=== PATIENT | male | born 1930 | race Caucasian/White ===

== ENCOUNTER 2016-11-09 08:00 | Inpatient (IN) ==
[2016-11-09] MEDS ORDERED: DEXTROSE 50% 25 GM/50 ML VIAL IV PRN ×2 (09:37)
[2016-11-09] MEDS ORDERED: GLUCAGON 1 MG VIAL IM PRN ×2 (09:37)
--- NOTE | 2016-11-09 09:37 | Cardiothoracic History & Phys ---
History of Present Illness Chief complaint: Chest pain History of present illness: Mr. Amaral is a 86 year old male who presented to [facility] with symptoms of chest discomfort and rapid heart rate. He was found to be in atrial fibrillation from which he was converted with intravenous Cardizem but was sent admitted to the hospital for further coronary evaluation. There is no previous history of coronary disease although the patient has had a stroke one year ago but has no residual weakness or infirmity as a result. Patient underwent cardiac catheterization demonstrating critical coronary disease and the patient was advised to have bypass surgery. He is to be transferred to this hospital for that reason. Past medical history is significant for history of hypertension and gastroesophageal reflux disease. He also has a history of paroxysmal atrial fibrillation. He has had a previous surgical history of knee operation. Patient is allergic to codeine Lasix and penicillin. He is also allergic to sulfa drugs. Patient has never smoked and does not drink alcohol. Physical examination patient is well-developed well-nourished white male in no acute distress. Examination of head eyes ears nose and throat show the pupils are equal react to light extraocular motions are intact and the oropharynx is benign. Examination of the neck shows no masses and there is no thyromegaly. Examination of the chest is clear to percussion and auscultation. Examination the heart shows regular sinus rhythm and there are no murmurs. Edematous the abdomen shows it is soft and nontender and there are no masses or organomegaly. Examination extremities shows no cyanosis or edema. Neurological examination is grossly within normal limits. Assessment: Coronary artery disease. Plan: Coronary bypass surgery 11/12/2016.
[2016-11-09] MEDS: GABAPENTIN 300 MG CAPSULE PO SCH ×2 (16:23→21:42)
[2016-11-09] MEDS: SODIUM CHLORIDE 0.9% 1,000 ML IV SCH (16:24)
[2016-11-09] MEDS: NAPROXEN 250 MG TABLET PO SCH (21:42)
[2016-11-09] MEDS: METOPROLOL TARTRATE 25 MG TABLET PO SCH (21:42)
[2016-11-09] MEDS: CHLORHEXIDINE 0.12% ORAL RINSE 60 ML BOTTLE SWISH/SPIT SCH (21:42)
[2016-11-09] MEDS: traZODone 50 MG TABLET PO SCH (21:42)
[2016-11-09] MEDS: FAMOTIDINE 20 MG TABLET PO SCH (21:42)
[2016-11-10] MEDS ORDERED: ACETAMINOPHEN 325 MG TABLET PO PRN (03:46)
[2016-11-10 03:52] LABS: ABG Base Excess 1.1 MMOL/L (-2.5-2.5); ABG HCO3 25.3 MMOL/L (20-26); ABG Oxygen Saturation 95.3 % (95-100); ABG PCO2 45.5 MM HG (35-48); ABG PH 7.377 (7.35-7.45); ABG PO2 74.4 MM HG (80-95); ABG TCO2 23.6 MMOL/L (23-27); Allen Test Positive; Pt O2 Delivery Device Room Air
[2016-11-10 05:44] LABS: Basophils % 0.6 % (0.0-0.8); Eosinophils # 0.2 10*3/uL (0.0-0.87); Eosinophils % 4.8 % (0.00-10.9); Hematocrit 35.6 VOL% (42.0-52.0); Hemoglobin 12.6 GM/DL (14.0-18.0); Immature Granulocytes % 0.6 %; Immature Granulocytes Absolute 0.03 #; Lymphocytes # 1.5 10*3/uL (1.4-4.0); Lymphocytes % 29.5 % (21.2-54.2); Mean Corpuscular HGB Conc 35.4 GM/DL (32-36); Mean Corpuscular Hemoglobin 32 PG (27-34); Mean Corpuscular Volume 89.2 FL (87-102); Mean Platelet Volume 11.2 FL (9.6-12.0); Monocytes # 0.6 10*3/uL (0.11-0.8); Neutrophils # 2.7 10*3/uL (1.4-7.4); Neutrophils % 53.5 % (38.7-73.9); Platelet Count 131 T/CUMM (130-400); Red Blood Count 3.99 MC/CUMM (3.8-5.5); Red Cell Distribution Width 12.7 % (9.3-17.3)
[2016-11-10 06:28] LABS: Albumin 3.1 G/DL (3.4-5.0); Bilirubin,Total 0.7 MG/DL (0.2-1.0); Calcium 8.7 MG/DL (8.5-10.1); Osmolality,Calculated 283.1 MOS/KG (273-304); Potassium 3.9 MMOL/L (3.5-5.1); Total Protein 5.6 G/DL (6.4-8.3)
--- NOTE | 2016-11-10 08:14 | EKG Report ---
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
--- NOTE | 2016-11-10 08:16 | XRay Report ---
XR chest 2V Indication: Coronary artery disease. Chest 2 views: Heart size is normal. Mild atheromatous disease the aortic arch noted. Mediastinal contours unremarkable. Aside from some mild interstitial scarring of the central lungs, lungs are clear. Endplate spondylitic changes of thoracic spine noted. Impression: No acute cardiopulmonary disease. Mild atheromatous disease the aorta. PROCEDURE INTERPRETED AT [facility] DEPARTMENT OF RADIOLOGY Final Report Signed by: Martín Young M.D.
--- NOTE | 2016-11-10 09:10 | Cardiothoracic Progress Note ---
Cardiothoracic Subjective Interval history: Patient is ready for surgery on Saturday. Exam (Progress Note) - Constitutional Vitals: Period Temp Pulse Resp BP Sys/Lr Pulse Ox Last 24 Hr 97.7 F-98.5 F 51-74 16-20 119-168/59-80 95-100 Result/EKG - Labs CBC & BMP: 11/10/16 05:34 11/10/16 05:34 Labs: Laboratory Results - last 24 hr 11/10/16 11/10/16 11/10/16 03:45 05:34 05:34 WBC 5.0 RBC 3.99 Hgb 12.6 L Hct 35.6 L MCV 89.2 MCH 32 MCHC 35.4 RDW 12.7 Plt Count 131 MPV 11.2 Neut % (Auto) 53.5 Lymph % (Auto) 29.5 [place] % (Auto) 11.0 Eos % (Auto) 4.8 Baso % (Auto) 0.6 Neut # (Auto) 2.7 Lymph # (Auto) 1.5 [place] # (Auto) 0.6 Eos # (Auto) 0.2 Baso # (Auto) 0.0 Immature Gran % 0.6 Nucleated RBC % 0.0 Immature Gran # 0.03 Nucleated RBCs # 0.00 ABG pH 7.377 ABG pCO2 45.5 ABG pO2 74.4 L ABG HCO3 25.3 ABG Total CO2 23.6 ABG O2 Saturation 95.3 ABG Base Excess 1.1 FiO2 21.00 Sodium 142 Potassium 3.9 Chloride 108 H Carbon Dioxide 28 Anion Gap 9.9 BUN 14 Creatinine 0.90 GFR Calculation 91 BUN/Creatinine Ratio 15.00 Glucose 92 Calculated Osmolality 283.1 Calcium 8.7 Total Bilirubin 0.70 AST 18 ALT 17 Alkaline Phosphatase 62 Total Protein 5.6 L Albumin 3.1 L Globulin 2.5 Albumin/Globulin Ratio 1.2 Quality Measures - VTE Contraindication to Pharmacological VTE Prophylaxis: High Risk of Bleeding
[2016-11-10] MEDS: NAPROXEN 250 MG TABLET PO SCH ×2 (09:27→21:53)
[2016-11-10] MEDS: LOSARTAN 50 MG TABLET PO SCH (09:27)
[2016-11-10] MEDS: GABAPENTIN 300 MG CAPSULE PO SCH ×3 (09:27→21:53)
[2016-11-10] MEDS: LORATADINE 10 MG TABLET PO SCH (09:28)
[2016-11-10] MEDS: ASPIRIN EC 81 MG TABLET PO SCH (09:28)
[2016-11-10] MEDS: amLODIPine 5 MG TABLET PO SCH (09:29)
[2016-11-10] MEDS: METOPROLOL TARTRATE 25 MG TABLET PO SCH ×2 (09:30→21:53)
[2016-11-10] MEDS: SODIUM CHLORIDE 0.9% 1,000 ML IV SCH (09:34)
[2016-11-10] MEDS: CHLORHEXIDINE 0.12% ORAL RINSE 60 ML BOTTLE SWISH/SPIT SCH ×2 (10:08→21:53)
--- NOTE | 2016-11-10 11:48 | Hospitalist Consult Note ---
History of Present Illness - Consult Narrative Reason for consult: Medical management History of present illness: Mr. Amaral is a 86 year old male CC: Kevin Christensen MD - Home Medications and Allergies Home Medications: Home Medications Medication Instructions Recorded Confirmed Type Acetaminophen Tab [Tylenol Tab] 2 tablet PO Q4-6H PRN 11/09/16 11/09/16 History Aspirin [Ecotrin] 1 tablespoon PO DAILY 11/09/16 11/09/16 History Atorvastatin [Lipitor] 1 tablet PO DAILY 11/09/16 11/09/16 History Gabapentin 1 tablet PO TID 11/09/16 11/09/16 History Hydrocodone/Acetaminophen 1 tablet PO Q6HR PRN 11/09/16 11/09/16 History [Hydrocodon-Acetaminoph 7.5-325] Losartan [Cozaar] 100 mg PO BEDTIME 11/09/16 11/09/16 History Metoprolol Tartrate 1 tablet PO BID 11/09/16 11/09/16 History Multivitamin [Multivitamins] 1 tablespoon PO DAILY 11/09/16 11/09/16 History Pantoprazole Tab [Protonix Tab] 1 tablet PO DAILY 11/09/16 11/09/16 History amLODIPine [Norvasc] 5 mg PO DAILY 11/09/16 11/09/16 History traZODone [Desyrel] 2 tablet PO DAILY 11/09/16 11/09/16 History Allergies/Adverse Reactions: Allergies Allergy/AdvReac Type Severity Reaction Status Date / Time codeine Allergy Mild Nausea Verified 11/09/16 14:26 latex Allergy Mild RASH Verified 11/09/16 14:26 Penicillins Allergy Mild RASH Verified 11/09/16 14:25 Sulfa (Sulfonamide Allergy Mild RASH Verified 11/09/16 14:26 Antibiotics) Medical,Surgical,& Family Hx - Medical History Cardio: History of: Cardiac Dysrhythmia, Hypertension, [place] Neurology: History of: Cerebrovascular Accident (LAST YEAR), TIA Genitourinary: History of: Prostate Problems Gastrointestinal: Comment Only: GI Problems (CONSTIPATION) Musculoskeletal: History of: Back/Neck Problems Comment Only: Musculoskeletal Problems (BACK SURGERY) - Surgical History Cardiac Surgeries: Sugical HX of: Cardiac Catheterization Neurologic Surgeries: Patient denies: Neurologic Surgery HEENT Surgeries: Surgical HX of: Eye Surgery, Tonsilectomy & Adenoidectomy Abdominal Surgeries: Surgical HX of: Appendectomy Reproductive Surgeries: Surgical HX of;: Prostate Surgery - Family History Family History: Reports;: Family Cancer, Family Diabetes, Family Heart Disease, Family Hypertension, Family Stroke - Social History Smoking Status: Never smoker Exam - Constitutional Vitals: Period Temp Pulse Resp BP Sys/Lr Pulse Ox Last 24 Hr 97.7 F-98.5 F 51-74 16-20 119-168/59-80 95-100 Results - Labs CBC & BMP: 11/10/16 05:34 11/10/16 05:34 Quality Measures - VTE Contraindication to Pharmacological VTE Prophylaxis: High Risk of Bleeding
[2016-11-10] MEDS ORDERED: ACETAMINOPHEN 500 MG TABLET PO PRN (13:28)
[2016-11-10] MEDS: KETOROLAC 30 MG/1 ML VIAL IV PRN ×2 (13:32→22:00)
[2016-11-10] MEDS ORDERED: MAGNESIUM HYDROXIDE SUSP 30 ML UDCUP PO PRN (15:12)
[2016-11-10] MEDS ORDERED: BISACODYL 5 MG TABLET PO PRN (15:13)
[2016-11-10] MEDS: traZODone 50 MG TABLET PO SCH (21:53)
[2016-11-10] MEDS: FAMOTIDINE 20 MG TABLET PO SCH (21:53)
--- NOTE | 2016-11-11 08:07 | Cardiothoracic Progress Note ---
Cardiothoracic Subjective Interval history: Ready for surgery in the morning. Exam (Progress Note) - Constitutional Vitals: Period Temp Pulse Resp BP Sys/Lr Pulse Ox Last 24 Hr 96.3 F-98.2 F 51-96 16-18 96-157/49-86 96-100 Result/EKG - Labs CBC & BMP: 11/10/16 05:34 11/10/16 05:34 Labs: Laboratory Results - last 24 hr 11/11/16 11/11/16 03:26 08:02 Blood Type O POSITIVE O POSITIVE Antibody Screen Negative Crossmatch See Detail Quality Measures - VTE Contraindication to Pharmacological VTE Prophylaxis: High Risk of Bleeding
[2016-11-11] MEDS: ASPIRIN EC 81 MG TABLET PO SCH (08:29)
[2016-11-11] MEDS: NAPROXEN 250 MG TABLET PO SCH ×2 (08:29→21:04)
[2016-11-11] MEDS: LORATADINE 10 MG TABLET PO SCH (08:29)
[2016-11-11] MEDS: LOSARTAN 50 MG TABLET PO SCH (08:29)
[2016-11-11] MEDS: GABAPENTIN 300 MG CAPSULE PO SCH ×3 (08:29→21:05)
[2016-11-11] MEDS: METOPROLOL TARTRATE 25 MG TABLET PO SCH ×2 (08:29→21:05)
[2016-11-11] MEDS: CHLORHEXIDINE 0.12% ORAL RINSE 60 ML BOTTLE SWISH/SPIT SCH ×2 (08:30→21:05)
[2016-11-11] MEDS: amLODIPine 5 MG TABLET PO SCH (08:30)
[2016-11-11] MEDS ORDERED: CEFUROXIME INJ 1,500 MG in SODIUM CHLORIDE 0.9% 100 ML IV ONE (09:37)
[2016-11-11] MEDS: SODIUM CHLORIDE 0.9% 1,000 ML IV SCH (10:39)
[2016-11-11] MEDS: CHLORHEXIDINE 4% SOLN 118 ML BOTTLE TOP SCH ×3 (14:14→21:05)
[2016-11-11] MEDS: FAMOTIDINE 20 MG TABLET PO SCH (21:05)
[2016-11-11] MEDS: traZODone 50 MG TABLET PO SCH (21:05)
[2016-11-12] MEDS: CHLORHEXIDINE 4% SOLN 118 ML BOTTLE TOP SCH ×2 (04:30→11:49)
[2016-11-12] MEDS ORDERED: PAPAVERINE 60 MG/2 ML VIAL ONE (04:40)
[2016-11-12] MEDS ORDERED: VANCOMYCIN 1,000 MG VIAL ONE (04:41)
[2016-11-12] MEDS ORDERED: PANTOPRAZOLE 40 MG VIAL IV ONE (05:30)
[2016-11-12] MEDS ORDERED: LORazepam 1 MG TABLET PO ONE (05:30)
[2016-11-12] MEDS: SODIUM CHLORIDE 0.9% 1,000 ML IV SCH (05:39)
[2016-11-12] MEDS ORDERED: CEFUROXIME INJ 1,500 MG in SODIUM CHLORIDE 0.9% 100 ML IV ONE (06:00)
[2016-11-12] MEDS ORDERED: AMINOCAPROIC ACID 5,000 MG/20 ML VIAL IV ONE (06:46)
[2016-11-12] MEDS ORDERED: MINERAL OIL/PETROLATUM OPH OINT 3.5 GM TUBE ONE (06:46)
[2016-11-12] MEDS ORDERED: VECURONIUM 10 MG VIAL IV ONE (06:46)
[2016-11-12] MEDS ORDERED: LIDOCAINE 2% 5 ML VIAL ONE (06:46)
[2016-11-12 07:38] LABS: ABG Base Excess 0.2 MMOL/L (-2.5-2.5); ABG HCO3 24.7 MMOL/L (20-26); ABG Oxygen Saturation 99.9 % (95-100); ABG PCO2 43.1 MM HG (35-48); ABG TCO2 22.7 MMOL/L (23-27); Glucose Heart Surgery 112 MG/DL (74-106); Hematocrit Heart Surgery 36.4 PERCENT (42-52); Hemoglobin Heart Surgery 11.8 G/DL (14.0-18.0); Ionized Calcium Arterial 1.21 MMOL/L (1.21-1.46); PCO2 Patient Temp Arterial 43.1 MMHG; Patient Temperature 37 CELCIUS; Potassium Heart/CVR 4.1 MMOL/L (3.5-5.1); Sodium Heart/CVR 138 MMOL/L (135-145)
[2016-11-12 07:53] LABS: Apearance,Urine CLEAR (Clear); Bilirubin,Urine Negative (Negative); Blood, Urine Negative (Negative); Glucose,Urine (UA) Negative (Negative); Ketones,Urine Negative (Negative); Nitrite,Urine Negative (Negative); Protein,Urine Negative; Squamous Epithelial Cell,Urine Occasional /HPF (0-10); Urine Color Colorless (Yellow); Urine Specific Gravity 1.004 (1.001-1.035); Urine Urobilinogen < 2.0 EU/DL (0.2-1.0)
[2016-11-12 09:01] LABS: Hematocrit Heart Surgery 23.1 PERCENT (42-52); Hemoglobin Heart Surgery 7.4 G/DL (14.0-18.0); PCO2 Patient Temp Venous 35.4 MM HG; PH Patient Temp Venous 7.442; PO2 Patient Temp Venous 35.7 MM HG; Potassium Heart/CVR 4.7 MMOL/L (3.5-5.1); VBG Base Excess 0.4 MEQ/L (0-4); VBG HCO3 24.6 MEQ/L (24-28); VBG Oxygen Saturation 82.6 %; VBG PCO2 40.9 MMHG (41-51); VBG PH 7.398
[2016-11-12] MEDS ORDERED: POTASSIUM CHLORIDE RIDER 100 ML IV ONE (09:12)
[2016-11-12 09:43] LABS: Hemoglobin Heart Surgery 9.1 G/DL (14.0-18.0); PCO2 Patient Temp Venous 36.9 MM HG; PH Patient Temp Venous 7.449; PO2 Patient Temp Venous 36.1 MM HG; Potassium Heart/CVR 4.2 MMOL/L (3.5-5.1); VBG HCO3 25.2 MEQ/L (24-28); VBG Oxygen Saturation 81.3 %; VBG PCO2 38.5 MMHG (41-51); VBG PH 7.434; VBG PO2 38.7 MMHG (17-40)
[2016-11-12 10:09] LABS: ABG Base Excess -0.4 MMOL/L (-2.5-2.5); ABG HCO3 23.8 MMOL/L (20-26); ABG PCO2 37.2 MM HG (35-48); ABG PH 7.424 (7.35-7.45); ABG PO2 376.8 MM HG (80-95); ABG TCO2 24.9 MMOL/L (23-27); Glucose Heart Surgery 164 MG/DL (74-106); Ionized Calcium Arterial 1.14 MMOL/L (1.21-1.46); PCO2 Patient Temp Arterial 37.2 MMHG; PH Patient Temp Arterial 7.424; PO2 Patient Temp Arterial 376.8 MM HG; Patient Temperature 37 CELCIUS; Potassium Heart/CVR 3.7 MMOL/L (3.5-5.1); Sodium Heart/CVR 133 MMOL/L (135-145)
[2016-11-12] MEDS ORDERED: PROTAMINE SULFATE 250 MG/25 ML VIAL IV ONE (10:13)
[2016-11-12] MEDS ORDERED: DEXTROSE 5% KCL 20 MEQ 20 MEQ/1,000 ML BAG IV ONE (10:13)
[2016-11-12] MEDS ORDERED: ALBUMIN 25% 25 GM/100 ML VIAL IV ONE (10:13)
[2016-11-12] MEDS ORDERED: SODIUM BICARBONATE 50 MEQ/50 ML SYRINGE IV ONE (10:13)
[2016-11-12] MEDS ORDERED: MAGNESIUM SULFATE 1 GM/2 ML VIAL ONE (10:13)
[2016-11-12] MEDS ORDERED: FUROSEMIDE 20 MG/2 ML VIAL ONE (10:14)
[2016-11-12] MEDS ORDERED: MANNITOL 12.5 GM/50 ML VIAL IV ONE (10:14)
[2016-11-12] MEDS ORDERED: HEPARIN 10,000 UNIT/10 ML VIAL ONE (10:14)
[2016-11-12] MEDS ORDERED: methylPREDNISolone SOD SUC 1,000 MG/8 ML VIAL ONE (10:14)
[2016-11-12] MEDS ORDERED: PROTAMINE SULFATE 50 MG/5 ML VIAL IV ONE ×2 (10:14→11:41)
[2016-11-12] MEDS ORDERED: SEVOFLURANE 1 UNIT/15 MINUTE INH ONE (11:20)
[2016-11-12] MEDS ORDERED: SUFentanil 250 MCG/5 ML AMP ONE (11:20)
[2016-11-12] MEDS ORDERED: LACTATED RINGERS 1,000 ML IV ONE (11:21)
[2016-11-12] MEDS ORDERED: SODIUM CHLORIDE 0.9% 1,000 ML IV ONE (11:21)
[2016-11-12] MEDS ORDERED: SODIUM CHLORIDE 0.9% 250 ML IV ONE (11:21)
[2016-11-12] MEDS ORDERED: MIDAZOLAM 10 MG/2 ML VIAL ONE (11:21)
[2016-11-12] MEDS ORDERED: ePHEDrine 50 MG/ML AMP ONE (11:26)
[2016-11-12] MEDS: LACTATED RINGERS 1,000 ML IV PRN ×6 (11:30→15:31)
[2016-11-12] MEDS ORDERED: MIDAZOLAM 2 MG/2 ML VIAL IV PRN (11:32)
[2016-11-12] MEDS ORDERED: INSULIN REGULAR 100 UNIT/ML IV ONE (11:32)
[2016-11-12] MEDS ORDERED: MAGNESIUM SULF RIDER 2 GM in PREMIX 1 EACH IV PRN (11:32)
[2016-11-12] MEDS ORDERED: LACTATED RINGERS 250 ML IV PRN (11:32)
[2016-11-12] MEDS ORDERED: MAGNESIUM SULF RIDER 4 GM in PREMIX 1 EACH IV PRN (11:32)
[2016-11-12] MEDS ORDERED: DEXTROSE 50% 25 GM/50 ML VIAL IV PRN ×2 (11:32)
[2016-11-12] MEDS ORDERED: MIDAZOLAM 10 MG/2 ML VIAL IV PRN (11:32)
[2016-11-12] MEDS ORDERED: NITROPRUSSIDE 100 MG in DEXTROSE 5% 250 ML IV PRN (11:32)
[2016-11-12] MEDS ORDERED: VECURONIUM 10 MG VIAL IV PRN ×2 (11:32)
[2016-11-12] MEDS ORDERED: PHENYLEPHRINE DRIP 40 MG/250 ML PREMIX IV PRN (11:32)
[2016-11-12] MEDS ORDERED: CALCIUM CHLORIDE 1,000 MG/10 ML SYRINGE IV PRN (11:32)
[2016-11-12] MEDS ORDERED: ACETAMINOPHEN 650 MG SUPP RECTAL PRN (11:32)
[2016-11-12] MEDS ORDERED: MORPHINE 10 MG/1 ML VIAL IV PRN (11:32)
[2016-11-12 11:47] LABS: ABG Base Excess -1.3 MMOL/L (-2.5-2.5); ABG HCO3 23.3 MMOL/L (20-26); ABG PH 7.394 (7.35-7.45); ABG TCO2 21.3 MMOL/L (23-27); Glucose Heart Surgery 126 MG/DL (74-106); Hematocrit Heart Surgery 29.5 PERCENT (42-52); Hemoglobin Heart Surgery 9.5 G/DL (14.0-18.0); Potassium Heart/CVR 3.7 MMOL/L (3.5-5.1)
[2016-11-12 11:50] LABS: Basophils % 0.2 % (0.0-0.8); Eosinophils # 0.1 10*3/uL (0.0-0.87); Eosinophils % 0.7 % (0.00-10.9); Hematocrit 28.2 VOL% (42.0-52.0); Hemoglobin 9.9 GM/DL (14.0-18.0); Immature Granulocytes % 0.9 %; Immature Granulocytes Absolute 0.08 #; Lymphocytes # 0.8 10*3/uL (1.4-4.0); Lymphocytes % 9.2 % (21.2-54.2); Mean Corpuscular HGB Conc 35.1 GM/DL (32-36); Mean Corpuscular Hemoglobin 32 PG (27-34); Mean Platelet Volume 11.4 FL (9.6-12.0); Monocytes # 0.6 10*3/uL (0.11-0.8); Neutrophils # 7.6 10*3/uL (1.4-7.4); Platelet Count 119 T/CUMM (130-400); White Blood Count 9.1 T/CUMM (4-12)
[2016-11-12] MEDS: SODIUM CHLORIDE 0.45% 1,000 ML IV SCH ×2 (11:50→11:51)
[2016-11-12 12:01] LABS: INR 1.2; PT Patient Result 12.7 SECS; Partial Thromboplastin Time 30.8 SECS (0-40)
[2016-11-12] MEDS: KETOROLAC 30 MG/1 ML VIAL IV SCH ×3 (12:03→22:39)
[2016-11-12] MEDS: POTASSIUM CHLORIDE RIDER 20 MEQ in PREMIX 1 EACH IV PRN ×5 (12:11→23:05)
[2016-11-12 12:28] LABS: Albumin 2.7 G/DL (3.4-5.0); Bilirubin,Total 1.1 MG/DL (0.2-1.0); Calcium 9.4 MG/DL (8.5-10.1); Osmolality,Calculated 284.3 MOS/KG (273-304); Potassium 3.9 MMOL/L (3.5-5.1); Total Protein 4.6 G/DL (6.4-8.3)
[2016-11-12 12:40] LABS: CKMB % 3.1 %
[2016-11-12 12:41] LABS: Hypochromasia Slight; Microcytosis 1+
--- NOTE | 2016-11-12 12:41 | XRay Report ---
XR chest 1V portable Indication: Line placement Comparison: Chest x-ray dated November 10, 2016 Technique: Single frontal view of the chest. Findings: Right-sided internal jugular approach central venous catheter tip projects over the distal SVC. Endotracheal tube tip projects just below the level of the clavicles. Mediastinal drains noted. Enteric tube tip projects over proximal stomach. Heart size is grossly stable status post sternotomy. Mild bibasilar atelectasis. Osseous structures appear grossly unchanged. IMPRESSION: Poststernotomy change with lines and tubes as above. PROCEDURE INTERPRETED AT [facility] DEPARTMENT OF RADIOLOGY Final Report Signed by: Dr Harry Min
[2016-11-12 12:42] LABS: Troponin I Only 1.73 NG/ML (0.00-0.045)
--- NOTE | 2016-11-12 13:07 | Operative Note ---
Date of procedure: 11/12/16 Pre-op diagnosis: Coronary artery disease Post-op diagnosis: same Procedure: Procedure: Coronary bypass grafting 2 with a left internal mammary graft to the anterior descending coronary artery and a saphenous vein graft to the right coronary artery. Findings: Patient is an 86-year-old man who was admitted to [facility] recent onset of substernal chest pain. Cardiac catheterization demonstrated critical stenosis in the anterior descending coronary artery and the right coronary artery. Patient was referred for bypass surgery and sinus surgery left ventricular function was noted to be normal. The left internal mammary artery was grafted to the anterior descending coronary artery which was a large vessel and free of disease at the site of anastomosis right coronary artery had to be grafted fairly distally and I did not think that we could easily reach this with a right internal mammary artery and therefore saphenous vein graft was used from the right lower leg. Patient tolerated the procedure well and was returned to recovery in satisfactory condition. Procedure: Patient brought the operating room placed on the operating table in supine position. After satisfactory induction of general anesthesia the chest abdomen and legs were prepped and draped in sterile fashion. Greater saphenous vein was harvested from the right lower leg and prepared as an arterial graft. Incision in the leg was closed with 3 oh sub-cutaneous Monocryl and 3-0 subcuticular Monocryl. A standard sternotomy incision was made and the sternum was divided and the heart suspended in a pericardial cradle. Left internal mammary artery was dissected free from its position in the anterior chest wall and prepared as an arterial graft. Patient was prepared for cardiopulmonary bypass with systemic heparinization and cannulation of the ascending aorta and right atrium. Cardiopulmonary bypass was begun and aorta was crossclamped and the heart arrested with cardioplegia solution injected into the aortic root. Heart was protected during the period of crossclamping with topical saline slush. Distal anastomoses were constructed as noted above and then the aorta was unclamped reestablishing cardiac action. Proximal anastomosis was constructed between the influenza saphenous vein graft in the ascending aorta. Following this the patient was weaned from cardiopulmonary bypass without difficulty and heparin effect reversed with protamine and decannulation carried out with a defects in the ascending aorta and right atrium closed with 3-0 Prolene. Operative field was inspected for hemostasis and when this was considered adequate incision was closed with interrupted stainless steel wire and the sternum and 0 Monopril in the presternal fascia. Skin was closed with running 3-0 subcuticular Monocryl. 2 chest tubes were left in the anterior mediastinum and brought out through separate stab incisions. Sterile dressings were applied and the patient was returned to recovery in satisfactory condition. Anesthesia: NATACHA Surgeon / Physician: Kevin Christensen Estimated blood loss: other (Unable to determine because of cardiopulmonary bypass) Condition: stable Disposition: ICU Results - Labs CBC & BMP: 11/12/16 11:45 11/12/16 11:43 Discharge Plan - Discharge Medications No Action Aspirin [Ecotrin] 1 tablespoon PO DAILY Gabapentin 1 tablet PO TID Atorvastatin [Lipitor] 1 tablet PO DAILY Metoprolol Tartrate 1 tablet PO BID traZODone [Desyrel] 2 tablet PO DAILY Pantoprazole Tab [Protonix Tab] 1 tablet PO DAILY amLODIPine [Norvasc] 5 mg PO DAILY Losartan [Cozaar] 100 mg PO BEDTIME Hydrocodone/Acetaminophen [Hydrocodon-Acetaminoph 7.5-325] 1 tablet PO Q6HR PRN PRN Reason: Pain Acetaminophen Tab [Tylenol Tab] 2 tablet PO Q4-6H PRN PRN Reason: Pain Multivitamin [Multivitamins] 1 tablespoon PO DAILY - Follow Up or Referral - Forms/Instructions
[2016-11-12] MEDS: ALBUMIN 5% 12.5 GM in PREMIX 1 EACH IV PRN ×5 (13:14→18:48)
[2016-11-12] MEDS: INSULIN REGULAR DRIP 100 ML IV SCH ×2 (13:22→16:20)
[2016-11-12 15:21] LABS: ABG Base Excess -2.1 MMOL/L (-2.5-2.5); ABG HCO3 22.7 MMOL/L (20-26); ABG TCO2 20.5 MMOL/L (23-27); Glucose Heart Surgery 163 MG/DL (74-106); Potassium Heart/CVR 3.9 MMOL/L (3.5-5.1)
[2016-11-12 15:22] LABS: Hematocrit Heart Surgery 28.9 PERCENT (42-52); Hemoglobin Heart Surgery 9.3 G/DL (14.0-18.0)
[2016-11-12] MEDS: POTASSIUM CHLORIDE RIDER 10 MEQ in PREMIX 1 EACH IV PRN (17:12)
[2016-11-12] MEDS: MORPHINE 2 MG/1 ML SYRINGE IV PRN ×2 (17:17→18:46)
[2016-11-12] MEDS: CEFUROXIME INJ 1,500 MG in SODIUM CHLORIDE 0.9% 100 ML IV SCH (18:47)
[2016-11-12] MEDS: INSULIN REGULAR 100 UNIT/ML IV PRN ×2 (18:49→20:11)
[2016-11-12] MEDS: CHLORHEXIDINE 0.12% ORAL RINSE 60 ML BOTTLE SWISH/SPIT SCH (20:38)
[2016-11-12 20:49] LABS: ABG Base Excess -3.4 MMOL/L (-2.5-2.5); ABG HCO3 21.6 MMOL/L (20-26); ABG Oxygen Saturation 99.9 % (95-100); ABG PCO2 36.1 MM HG (35-48); ABG PH 7.378 (7.35-7.45); ABG TCO2 19.4 MMOL/L (23-27); Glucose Heart Surgery 140 MG/DL (74-106); Hematocrit Heart Surgery 30.4 PERCENT (42-52); Hemoglobin Heart Surgery 9.8 G/DL (14.0-18.0); Potassium Heart/CVR 4.3 MMOL/L (3.5-5.1)
[2016-11-12 21:10] LABS: CKMB % 5.5 %
[2016-11-12 21:18] LABS: Troponin I Only 4.59 NG/ML (0.00-0.045)
[2016-11-12 21:53] LABS: ABG Base Excess -3.8 MMOL/L (-2.5-2.5); ABG HCO3 21.3 MMOL/L (20-26); ABG Oxygen Saturation 99.2 % (95-100); ABG PCO2 37.7 MM HG (35-48); ABG PH 7.359 (7.35-7.45); ABG TCO2 19.5 MMOL/L (23-27); Glucose Heart Surgery 132 MG/DL (74-106); Hematocrit Heart Surgery 29.7 PERCENT (42-52); Hemoglobin Heart Surgery 9.6 G/DL (14.0-18.0); Potassium Heart/CVR 4.2 MMOL/L (3.5-5.1)
[2016-11-12 22:55] LABS: ABG Base Excess -4.3 MMOL/L (-2.5-2.5); ABG Oxygen Saturation 98.6 % (95-100); ABG PH 7.388 (7.35-7.45); ABG PO2 198.6 MM HG (80-95); ABG TCO2 21.1 MMOL/L (23-27); Glucose Heart Surgery 111 MG/DL (74-106); Hemoglobin Heart Surgery 10.6 G/DL (14.0-18.0); Potassium Heart/CVR 4.1 MMOL/L (3.5-5.1)
[2016-11-13] MEDS ORDERED: AMIODARONE INJ 50 MG in DEXTROSE 5% 100 ML IV ONE (00:51)
[2016-11-13] MEDS ORDERED: AMIODARONE 150 MG/3 ML VIAL ONE (00:55)
[2016-11-13] MEDS ORDERED: AMIODARONE 450 MG/9 ML VIAL IV ONE (00:58)
[2016-11-13] MEDS ORDERED: AMIODARONE INJ 450 MG in DEXTROSE 5% 241 ML IV SCH ×2 (01:00→07:00)
[2016-11-13] MEDS: MORPHINE 2 MG/1 ML SYRINGE IV PRN ×3 (01:24→22:44)
[2016-11-13] MEDS: SODIUM CHLORIDE 0.9% 1,000 ML IV SCH (01:43)
[2016-11-13] MEDS: CHLORHEXIDINE 0.12% ORAL RINSE 60 ML BOTTLE SWISH/SPIT SCH ×3 (01:43→22:46)
[2016-11-13] MEDS: LOSARTAN 50 MG TABLET PO SCH ×2 (01:44→20:25)
[2016-11-13] MEDS: LORATADINE 10 MG TABLET PO SCH (01:44)
[2016-11-13] MEDS: ASPIRIN EC 81 MG TABLET PO SCH ×2 (01:44→09:03)
[2016-11-13] MEDS: GABAPENTIN 300 MG CAPSULE PO SCH ×4 (01:44→20:26)
[2016-11-13] MEDS: METOPROLOL TARTRATE 25 MG TABLET PO SCH (01:44)
[2016-11-13] MEDS: NAPROXEN 250 MG TABLET PO SCH (01:44)
[2016-11-13] MEDS: amLODIPine 5 MG TABLET PO SCH ×2 (01:44→09:03)
[2016-11-13 03:04] LABS: ABG Base Excess -3.2 MMOL/L (-2.5-2.5); ABG HCO3 20.7 MMOL/L (20-26); ABG Oxygen Saturation 98.2 % (95-100); ABG PCO2 33.1 MM HG (35-48); ABG PH 7.414 (7.35-7.45); ABG PO2 141.9 MM HG (80-95); ABG TCO2 21.7 MMOL/L (23-27); Glucose Heart Surgery 108 MG/DL (74-106); Hemoglobin Heart Surgery 10.5 G/DL (14.0-18.0); Potassium Heart/CVR 4.5 MMOL/L (3.5-5.1)
[2016-11-13 03:10] LABS: Basophils % 0.1 % (0.0-0.8); Hematocrit 28.4 VOL% (42.0-52.0); Hemoglobin 9.8 GM/DL (14.0-18.0); Immature Granulocytes % 0.6 %; Immature Granulocytes Absolute 0.08 #; Lymphocytes # 0.7 10*3/uL (1.4-4.0); Lymphocytes % 4.7 % (21.2-54.2); Mean Corpuscular HGB Conc 34.5 GM/DL (32-36); Mean Corpuscular Hemoglobin 31 PG (27-34); Mean Corpuscular Volume 90.4 FL (87-102); Mean Platelet Volume 11.6 FL (9.6-12.0); Monocytes # 0.7 10*3/uL (0.11-0.8); Monocytes % 5.1 % (1.7-12.7); Neutrophils # 12.7 10*3/uL (1.4-7.4); Neutrophils % 89.5 % (38.7-73.9); Platelet Count 105 T/CUMM (130-400); Red Blood Count 3.14 MC/CUMM (3.8-5.5); Red Cell Distribution Width 13.8 % (9.3-17.3); White Blood Count 14.2 T/CUMM (4-12)
[2016-11-13 03:40] LABS: Albumin 3.4 G/DL (3.4-5.0); Bilirubin,Direct 0.3 MG/DL (0.0-0.20); Bilirubin,Total 1.1 MG/DL (0.2-1.0); Osmolality,Calculated 280.5 MOS/KG (273-304); Potassium 4.5 MMOL/L (3.5-5.1); Total Protein 5.4 G/DL (6.4-8.3)
[2016-11-13 03:55] LABS: Lymphocytes 5 % (20-55); Segmented Neutrophils 90 % (50-85); Total Cells Counted 100; Troponin I Only 7.82 NG/ML (0.00-0.045)
[2016-11-13 03:56] LABS: Ovalocytes Slight; Platelet Estimate Adequate
[2016-11-13] MEDS: KETOROLAC 30 MG/1 ML VIAL IV SCH ×3 (05:23→18:24)
[2016-11-13] MEDS: POTASSIUM CHLORIDE RIDER 10 MEQ in PREMIX 1 EACH IV PRN (05:24)
[2016-11-13] MEDS: CEFUROXIME INJ 1,500 MG in SODIUM CHLORIDE 0.9% 100 ML IV SCH ×2 (06:31→20:25)
--- NOTE | 2016-11-13 07:38 | EKG Report ---
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
[2016-11-13] MEDS ORDERED: ACETAMINOPHEN 500 MG TABLET PO PRN (07:44)
--- NOTE | 2016-11-13 07:44 | Cardiothoracic Progress Note ---
Cardiothoracic Subjective Interval history: Patient is awake alert and extubated. He had a comfortable night and was extubated around midnight. Vital signs have been stable and is breathing comfortably. He is in sinus rhythm with occasional PVCs. He has been placed on amiodarone prophylactically for this problem. Otherwise his vital signs have been stable. He is breathing comfortably and his arterial blood gases are satisfactory postextubation. Chest tube drainage is minimal and his chest tubes have been removed. Urine output is good and creatinine is within normal limits. Because of the patient's age I think it prudent to keep him in intensive care for another 24 hours. Overall however his progress is satisfactory. Exam (Progress Note) - Constitutional Vitals: Period Temp Pulse Resp BP Sys/Lr Pulse Ox Last 24 Hr 96.1 F-98.8 F 7-106 8-17 81-150/43-65 98-100 Result/EKG - Labs CBC & BMP: 11/13/16 03:00 11/13/16 03:00 Labs: Laboratory Results - last 24 hr 11/11/16 11/12/16 11/12/16 03:26 07:35 07:48 WBC RBC Hgb Hct MCV MCH MCHC RDW Plt Count 43 L D MPV Neut % (Auto) Lymph % (Auto) [place] % (Auto) Eos % (Auto) Baso % (Auto) Neut # (Auto) Lymph # (Auto) [place] # (Auto) Eos # (Auto) Baso # (Auto) Total Counted Immature Gran % Nucleated RBC % Immature Gran # Segmented Neutrophils Lymphocytes Monocytes Nucleated RBCs # Platelet Estimate Hypochromasia Microcytosis Ovalocytes INR PT Patient/Control Mix Circ Anticoag PTT Patient Temperature ABG pH ABG pH at Pt Temp ABG pCO2 ABG pCO2 at Pt Temp ABG pO2 ABG pO2 at Pt Temp ABG HCO3 ABG Total CO2 ABG O2 Saturation ABG Base Excess ABG Sodium VBG pH VBG pCO2 VBG pO2 VBG HCO3 VBG Total CO2 VBG O2 Saturation VBG Base Excess Hemoglobin Hematocrit Potassium Glucose Ionized Calcium FiO2 Sodium Chloride Carbon Dioxide Anion Gap BUN Creatinine GFR Calculation BUN/Creatinine Ratio POC Glucose Calculated Osmolality Calcium Venous Ioniz Calcium Magnesium Total Bilirubin Direct Bilirubin AST ALT Alkaline Phosphatase Total Creatine Kinase CK-MB (CK-2) CK and CKMB Interp Troponin I Total Protein Albumin Globulin Albumin/Globulin Ratio Urine Color Colorless Urine Appearance Clear Urine pH 7.0 Ur Specific [place] 1.004 Urine Protein Negative Urine Glucose (UA) Negative Urine Ketones Negative Urine Blood Negative Urine Nitrate Negative Urine Bilirubin Negative Urine Urobilinogen < 2.0 H Urine Leukocytes Negative Ur Squamous Epith Cells Occasional Ur Culture Indicated? Not indicated Blood Type O POSITIVE Antibody Screen Negative Crossmatch See Detail 11/12/16 11/12/16 11/12/16 08:59 09:44 10:04 WBC RBC Hgb Hct MCV MCH MCHC RDW Plt Count 59 L D MPV Neut % (Auto) Lymph % (Auto) [place] % (Auto) Eos % (Auto) Baso % (Auto) Neut # (Auto) Lymph # (Auto) [place] # (Auto) Eos # (Auto) Baso # (Auto) Total Counted Immature Gran % Nucleated RBC % Immature Gran # Segmented Neutrophils Lymphocytes Monocytes Nucleated RBCs # Platelet Estimate Hypochromasia Microcytosis Ovalocytes INR PT Patient/Control Mix Circ Anticoag PTT Patient Temperature 34 36 ABG pH ABG pH at Pt Temp 7.442 7.449 ABG pCO2 ABG pCO2 at Pt Temp 35.4 36.9 ABG pO2 ABG pO2 at Pt Temp 35.7 36.1 ABG HCO3 ABG Total CO2 ABG O2 Saturation ABG Base Excess ABG Sodium 129 L 131 L VBG pH 7.398 7.434 VBG pCO2 40.9 L 38.5 L VBG pO2 44.0 H 38.7 VBG HCO3 24.6 25.2 VBG Total CO2 23.8 26.4 VBG O2 Saturation 82.6 81.3 VBG Base Excess 0.4 1.0 Hemoglobin 7.4 L D 9.1 L Hematocrit 23.1 L 27.0 L Potassium 4.7 4.2 Glucose 327 H 208 H Ionized Calcium FiO2 80.00 80.00 Sodium Chloride Carbon Dioxide Anion Gap BUN Creatinine GFR Calculation BUN/Creatinine Ratio POC Glucose Calculated Osmolality Calcium Venous Ioniz Calcium 0.94 L 1.02 Magnesium Total Bilirubin Direct Bilirubin AST ALT Alkaline Phosphatase Total Creatine Kinase CK-MB (CK-2) CK and CKMB Interp Troponin I Total Protein Albumin Globulin Albumin/Globulin Ratio Urine Color Urine Appearance Urine pH Ur Specific [place] Urine Protein Urine Glucose (UA) Urine Ketones Urine Blood Urine Nitrate Urine Bilirubin Urine Urobilinogen Urine Leukocytes Ur Squamous Epith Cells Ur Culture Indicated? Blood Type Antibody Screen Crossmatch 11/12/16 11/12/16 11/12/16 10:04 11:43 11:43 WBC RBC Hgb Hct MCV MCH MCHC RDW Plt Count MPV Neut % (Auto) Lymph % (Auto) [place] % (Auto) Eos % (Auto) Baso % (Auto) Neut # (Auto) Lymph # (Auto) [place] # (Auto) Eos # (Auto) Baso # (Auto) Total Counted Immature Gran % Nucleated RBC % Immature Gran # Segmented Neutrophils Lymphocytes Monocytes Nucleated RBCs # Platelet Estimate Hypochromasia Microcytosis Ovalocytes INR PT Patient/Control Mix Circ Anticoag PTT Patient Temperature 37 ABG pH 7.424 7.394 ABG pH at Pt Temp 7.424 ABG pCO2 37.2 38.0 ABG pCO2 at Pt Temp 37.2 ABG pO2 376.8 H 348.0 H ABG pO2 at Pt Temp 376.8 ABG HCO3 23.8 23.3 ABG Total CO2 24.9 21.3 L ABG O2 Saturation 99.0 100.0 ABG Base Excess -0.4 -1.3 ABG Sodium 133 L VBG pH VBG pCO2 VBG pO2 VBG HCO3 VBG Total CO2 VBG O2 Saturation VBG Base Excess Hemoglobin 10.0 L 9.5 L D Hematocrit 29.0 L 29.5 L Potassium 3.7 3.9 3.7 Glucose 164 H 116 H 126 H Ionized Calcium 1.14 L FiO2 Sodium 141 Chloride 109 H Carbon Dioxide 24 Anion Gap 11.9 BUN 21 H Creatinine 1.00 GFR Calculation 80 BUN/Creatinine Ratio 21.00 H POC Glucose Calculated Osmolality 284.3 Calcium 9.4 Venous Ioniz Calcium Magnesium 2.0 Total Bilirubin 1.10 H Direct Bilirubin AST 26 ALT 22 Alkaline Phosphatase 42 L Total Creatine Kinase CK-MB (CK-2) CK and CKMB Interp Troponin I Total Protein 4.6 L Albumin 2.7 L Globulin 1.9 L Albumin/Globulin Ratio 1.4 Urine Color Urine Appearance Urine pH Ur Specific [place] Urine Protein Urine Glucose (UA) Urine Ketones Urine Blood Urine Nitrate Urine Bilirubin Urine Urobilinogen Urine Leukocytes Ur Squamous Epith Cells Ur Culture Indicated? Blood Type Antibody Screen Crossmatch 11/12/16 11/12/16 11/12/16 11:43 11:45 11:45 WBC 9.1 D RBC 3.10 L D Hgb 9.9 L D Hct 28.2 L MCV 91.0 MCH 32 MCHC 35.1 RDW 13.0 Plt Count 119 L D MPV 11.4 Neut % (Auto) 83.0 H Lymph % (Auto) 9.2 L [place] % (Auto) 6.0 Eos % (Auto) 0.7 Baso % (Auto) 0.2 Neut # (Auto) 7.6 H Lymph # (Auto) 0.8 L [place] # (Auto) 0.6 Eos # (Auto) 0.1 Baso # (Auto) 0.0 Total Counted Immature Gran % 0.9 Nucleated RBC % 0.0 Immature Gran # 0.08 Segmented Neutrophils Lymphocytes Monocytes Nucleated RBCs # 0.00 Platelet Estimate Hypochromasia Slight Microcytosis 1+ Ovalocytes INR 1.2 PT Patient/Control Mix 12.7 Circ Anticoag PTT 30.8 Patient Temperature ABG pH ABG pH at Pt Temp ABG pCO2 ABG pCO2 at Pt Temp ABG pO2 ABG pO2 at Pt Temp ABG HCO3 ABG Total CO2 ABG O2 Saturation ABG Base Excess ABG Sodium VBG pH VBG pCO2 VBG pO2 VBG HCO3 VBG Total CO2 VBG O2 Saturation VBG Base Excess Hemoglobin Hematocrit Potassium Glucose Ionized Calcium FiO2 Sodium Chloride Carbon Dioxide Anion Gap BUN Creatinine GFR Calculation BUN/Creatinine Ratio POC Glucose Calculated Osmolality Calcium Venous Ioniz Calcium Magnesium Total Bilirubin Direct Bilirubin AST ALT Alkaline Phosphatase Total Creatine Kinase 292 CK-MB (CK-2) 9.1 H CK and CKMB Interp 3.1 Troponin I 1.730 H Total Protein Albumin Globulin Albumin/Globulin Ratio Urine Color Urine Appearance Urine pH Ur Specific [place] Urine Protein Urine Glucose (UA) Urine Ketones Urine Blood Urine Nitrate Urine Bilirubin Urine Urobilinogen Urine Leukocytes Ur Squamous Epith Cells Ur Culture Indicated? Blood Type Antibody Screen Crossmatch 11/12/16 11/12/16 11/12/16 15:20 16:21 17:18 WBC RBC Hgb Hct MCV MCH MCHC RDW Plt Count MPV Neut % (Auto) Lymph % (Auto) [place] % (Auto) Eos % (Auto) Baso % (Auto) Neut # (Auto) Lymph # (Auto) [place] # (Auto) Eos # (Auto) Baso # (Auto) Total Counted Immature Gran % Nucleated RBC % Immature Gran # Segmented Neutrophils Lymphocytes Monocytes Nucleated RBCs # Platelet Estimate Hypochromasia Microcytosis Ovalocytes INR PT Patient/Control Mix Circ Anticoag PTT Patient Temperature ABG pH 7.400 ABG pH at Pt Temp ABG pCO2 36.0 ABG pCO2 at Pt Temp ABG pO2 229.0 H ABG pO2 at Pt Temp ABG HCO3 22.7 ABG Total CO2 20.5 L ABG O2 Saturation 100.0 ABG Base Excess -2.1 ABG Sodium VBG pH VBG pCO2 VBG pO2 VBG HCO3 VBG Total CO2 VBG O2 Saturation VBG Base Excess Hemoglobin 9.3 L Hematocrit 28.9 L Potassium 3.9 Glucose 163 H Ionized Calcium FiO2 Sodium Chloride Carbon Dioxide Anion Gap BUN Creatinine GFR Calculation BUN/Creatinine Ratio POC Glucose 176 H 207 H Calculated Osmolality Calcium Venous Ioniz Calcium Magnesium Total Bilirubin Direct Bilirubin AST ALT Alkaline Phosphatase Total Creatine Kinase CK-MB (CK-2) CK and CKMB Interp Troponin I Total Protein Albumin Globulin Albumin/Globulin Ratio Urine Color Urine Appearance Urine pH Ur Specific [place] Urine Protein Urine Glucose (UA) Urine Ketones Urine Blood Urine Nitrate Urine Bilirubin Urine Urobilinogen Urine Leukocytes Ur Squamous Epith Cells Ur Culture Indicated? Blood Type Antibody Screen Crossmatch 11/12/16 11/12/16 11/12/16 18:42 19:28 20:06 WBC RBC Hgb Hct MCV MCH MCHC RDW Plt Count MPV Neut % (Auto) Lymph % (Auto) [place] % (Auto) Eos % (Auto) Baso % (Auto) Neut # (Auto) Lymph # (Auto) [place] # (Auto) Eos # (Auto) Baso # (Auto) Total Counted Immature Gran % Nucleated RBC % Immature Gran # Segmented Neutrophils Lymphocytes Monocytes Nucleated RBCs # Platelet Estimate Hypochromasia Microcytosis Ovalocytes INR PT Patient/Control Mix Circ Anticoag PTT Patient Temperature ABG pH ABG pH at Pt Temp ABG pCO2 ABG pCO2 at Pt Temp ABG pO2 ABG pO2 at Pt Temp ABG HCO3 ABG Total CO2 ABG O2 Saturation ABG Base Excess ABG Sodium VBG pH VBG pCO2 VBG pO2 VBG HCO3 VBG Total CO2 VBG O2 Saturation VBG Base Excess Hemoglobin Hematocrit Potassium Glucose Ionized Calcium FiO2 Sodium Chloride Carbon Dioxide Anion Gap BUN Creatinine GFR Calculation BUN/Creatinine Ratio POC Glucose 192 H 144 H 159 H Calculated Osmolality Calcium Venous Ioniz Calcium Magnesium Total Bilirubin Direct Bilirubin AST ALT Alkaline Phosphatase Total Creatine Kinase CK-MB (CK-2) CK and CKMB Interp Troponin I Total Protein Albumin Globulin Albumin/Globulin Ratio Urine Color Urine Appearance Urine pH Ur Specific [place] Urine Protein Urine Glucose (UA) Urine Ketones Urine Blood Urine Nitrate Urine Bilirubin Urine Urobilinogen Urine Leukocytes Ur Squamous Epith Cells Ur Culture Indicated? Blood Type Antibody Screen Crossmatch 11/12/16 11/12/16 11/12/16 20:45 20:45 20:59 WBC RBC Hgb Hct MCV MCH MCHC RDW Plt Count MPV Neut % (Auto) Lymph % (Auto) [place] % (Auto) Eos % (Auto) Baso % (Auto) Neut # (Auto) Lymph # (Auto) [place] # (Auto) Eos # (Auto) Baso # (Auto) Total Counted Immature Gran % Nucleated RBC % Immature Gran # Segmented Neutrophils Lymphocytes Monocytes Nucleated RBCs # Platelet Estimate Hypochromasia Microcytosis Ovalocytes INR PT Patient/Control Mix Circ Anticoag PTT Patient Temperature ABG pH 7.378 ABG pH at Pt Temp ABG pCO2 36.1 ABG pCO2 at Pt Temp ABG pO2 164.0 H ABG pO2 at Pt Temp ABG HCO3 21.6 ABG Total CO2 19.4 L ABG O2 Saturation 99.9 ABG Base Excess -3.4 L ABG Sodium VBG pH VBG pCO2 VBG pO2 VBG HCO3 VBG Total CO2 VBG O2 Saturation VBG Base Excess Hemoglobin 9.8 L Hematocrit 30.4 L Potassium 4.3 Glucose 140 H Ionized Calcium FiO2 Sodium Chloride Carbon Dioxide Anion Gap BUN Creatinine GFR Calculation BUN/Creatinine Ratio POC Glucose 140 H Calculated Osmolality Calcium Venous Ioniz Calcium Magnesium Total Bilirubin Direct Bilirubin AST ALT Alkaline Phosphatase Total Creatine Kinase 427 H D CK-MB (CK-2) 23.3 H D CK and CKMB Interp 5.5 Troponin I 4.590 H D Total Protein Albumin Globulin Albumin/Globulin Ratio Urine Color Urine Appearance Urine pH Ur Specific [place] Urine Protein Urine Glucose (UA) Urine Ketones Urine Blood Urine Nitrate Urine Bilirubin Urine Urobilinogen Urine Leukocytes Ur Squamous Epith Cells Ur Culture Indicated? Blood Type Antibody Screen Crossmatch 11/12/16 11/12/16 11/12/16 21:45 22:03 22:50 WBC RBC Hgb Hct MCV MCH MCHC RDW Plt Count MPV Neut % (Auto) Lymph % (Auto) [place] % (Auto) Eos % (Auto) Baso % (Auto) Neut # (Auto) Lymph # (Auto) [place] # (Auto) Eos # (Auto) Baso # (Auto) Total Counted Immature Gran % Nucleated RBC % Immature Gran # Segmented Neutrophils Lymphocytes Monocytes Nucleated RBCs # Platelet Estimate Hypochromasia Microcytosis Ovalocytes INR PT Patient/Control Mix Circ Anticoag PTT Patient Temperature ABG pH 7.359 ABG pH at Pt Temp ABG pCO2 37.7 ABG pCO2 at Pt Temp ABG pO2 159.0 H ABG pO2 at Pt Temp ABG HCO3 21.3 ABG Total CO2 19.5 L ABG O2 Saturation 99.2 ABG Base Excess -3.8 L ABG Sodium VBG pH VBG pCO2 VBG pO2 VBG HCO3 VBG Total CO2 VBG O2 Saturation VBG Base Excess Hemoglobin 9.6 L Hematocrit 29.7 L Potassium 4.2 Glucose 132 H Ionized Calcium FiO2 Sodium Chloride Carbon Dioxide Anion Gap BUN Creatinine GFR Calculation BUN/Creatinine Ratio POC Glucose 139 H Calculated Osmolality Calcium Venous Ioniz Calcium Magnesium 1.6 L Total Bilirubin Direct Bilirubin AST ALT Alkaline Phosphatase Total Creatine Kinase CK-MB (CK-2) CK and CKMB Interp Troponin I Total Protein Albumin Globulin Albumin/Globulin Ratio Urine Color Urine Appearance Urine pH Ur Specific [place] Urine Protein Urine Glucose (UA) Urine Ketones Urine Blood Urine Nitrate Urine Bilirubin Urine Urobilinogen Urine Leukocytes Ur Squamous Epith Cells Ur Culture Indicated? Blood Type Antibody Screen Crossmatch 11/12/16 11/12/16 11/13/16 22:50 22:52 00:19 WBC RBC Hgb Hct MCV MCH MCHC RDW Plt Count MPV Neut % (Auto) Lymph % (Auto) [place] % (Auto) Eos % (Auto) Baso % (Auto) Neut # (Auto) Lymph # (Auto) [place] # (Auto) Eos # (Auto) Baso # (Auto) Total Counted Immature Gran % Nucleated RBC % Immature Gran # Segmented Neutrophils Lymphocytes Monocytes Nucleated RBCs # Platelet Estimate Hypochromasia Microcytosis Ovalocytes INR PT Patient/Control Mix Circ Anticoag PTT Patient Temperature ABG pH 7.388 ABG pH at Pt Temp ABG pCO2 34.0 L ABG pCO2 at Pt Temp ABG pO2 198.6 H ABG pO2 at Pt Temp ABG HCO3 20.0 ABG Total CO2 21.1 L ABG O2 Saturation 98.6 ABG Base Excess -4.3 L ABG Sodium VBG pH VBG pCO2 VBG pO2 VBG HCO3 VBG Total CO2 VBG O2 Saturation VBG Base Excess Hemoglobin 10.6 L Hematocrit 31.0 L Potassium 4.1 Glucose 111 H Ionized Calcium FiO2 Sodium Chloride Carbon Dioxide Anion Gap BUN Creatinine GFR Calculation BUN/Creatinine Ratio POC Glucose 117 H 116 H Calculated Osmolality Calcium Venous Ioniz Calcium Magnesium Total Bilirubin Direct Bilirubin AST ALT Alkaline Phosphatase Total Creatine Kinase CK-MB (CK-2) CK and CKMB Interp Troponin I Total Protein Albumin Globulin Albumin/Globulin Ratio Urine Color Urine Appearance Urine pH Ur Specific [place] Urine Protein Urine Glucose (UA) Urine Ketones Urine Blood Urine Nitrate Urine Bilirubin Urine Urobilinogen Urine Leukocytes Ur Squamous Epith Cells Ur Culture Indicated? Blood Type Antibody Screen Crossmatch 11/13/16 11/13/16 11/13/16 01:08 02:00 02:57 WBC RBC Hgb Hct MCV MCH MCHC RDW Plt Count MPV Neut % (Auto) Lymph % (Auto) [place] % (Auto) Eos % (Auto) Baso % (Auto) Neut # (Auto) Lymph # (Auto) [place] # (Auto) Eos # (Auto) Baso # (Auto) Total Counted Immature Gran % Nucleated RBC % Immature Gran # Segmented Neutrophils Lymphocytes Monocytes Nucleated RBCs # Platelet Estimate Hypochromasia Microcytosis Ovalocytes INR PT Patient/Control Mix Circ Anticoag PTT Patient Temperature ABG pH ABG pH at Pt Temp ABG pCO2 ABG pCO2 at Pt Temp ABG pO2 ABG pO2 at Pt Temp ABG HCO3 ABG Total CO2 ABG O2 Saturation ABG Base Excess ABG Sodium VBG pH VBG pCO2 VBG pO2 VBG HCO3 VBG Total CO2 VBG O2 Saturation VBG Base Excess Hemoglobin Hematocrit Potassium Glucose Ionized Calcium FiO2 Sodium Chloride Carbon Dioxide Anion Gap BUN Creatinine GFR Calculation BUN/Creatinine Ratio POC Glucose 135 H 125 H 118 H Calculated Osmolality Calcium Venous Ioniz Calcium Magnesium Total Bilirubin Direct Bilirubin AST ALT Alkaline Phosphatase Total Creatine Kinase CK-MB (CK-2) CK and CKMB Interp Troponin I Total Protein Albumin Globulin Albumin/Globulin Ratio Urine Color Urine Appearance Urine pH Ur Specific [place] Urine Protein Urine Glucose (UA) Urine Ketones Urine Blood Urine Nitrate Urine Bilirubin Urine Urobilinogen Urine Leukocytes Ur Squamous Epith Cells Ur Culture Indicated? Blood Type Antibody Screen Crossmatch 11/13/16 11/13/16 11/13/16 03:00 03:00 03:00 WBC 14.2 H D RBC 3.14 L Hgb 9.8 L Hct 28.4 L MCV 90.4 MCH 31 MCHC 34.5 RDW 13.8 Plt Count 105 L MPV 11.6 Neut % (Auto) 89.5 H Lymph % (Auto) 4.7 L [place] % (Auto) 5.1 Eos % (Auto) 0.0 Baso % (Auto) 0.1 Neut # (Auto) 12.7 H Lymph # (Auto) 0.7 L [place] # (Auto) 0.7 Eos # (Auto) 0.0 Baso # (Auto) 0.0 Total Counted 100 Immature Gran % 0.6 Nucleated RBC % 0.0 Immature Gran # 0.08 Segmented Neutrophils 90 H Lymphocytes 5 L Monocytes 5 Nucleated RBCs # 0.00 Platelet Estimate Adequate Hypochromasia Microcytosis Ovalocytes Slight INR PT Patient/Control Mix Circ Anticoag PTT Patient Temperature ABG pH ABG pH at Pt Temp ABG pCO2 ABG pCO2 at Pt Temp ABG pO2 ABG pO2 at Pt Temp ABG HCO3 ABG Total CO2 ABG O2 Saturation ABG Base Excess ABG Sodium VBG pH VBG pCO2 VBG pO2 VBG HCO3 VBG Total CO2 VBG O2 Saturation VBG Base Excess Hemoglobin Hematocrit Potassium 4.5 Glucose 112 H Ionized Calcium FiO2 Sodium 139 Chloride 109 H Carbon Dioxide 22 Anion Gap 12.5 BUN 20 H Creatinine 1.00 GFR Calculation 80 BUN/Creatinine Ratio 20.00 POC Glucose Calculated Osmolality 280.5 Calcium 8.0 L Venous Ioniz Calcium Magnesium 2.0 Total Bilirubin 1.10 H Direct Bilirubin 0.30 H AST 61 H ALT 26 Alkaline Phosphatase 31 L Total Creatine Kinase 646 H D CK-MB (CK-2) 45.0 H D CK and CKMB Interp 7.0 Troponin I 7.820 H D Total Protein 5.4 L Albumin 3.4 Globulin 2.0 L Albumin/Globulin Ratio 1.7 Urine Color Urine Appearance Urine pH Ur Specific [place] Urine Protein Urine Glucose (UA) Urine Ketones Urine Blood Urine Nitrate Urine Bilirubin Urine Urobilinogen Urine Leukocytes Ur Squamous Epith Cells Ur Culture Indicated? Blood Type Antibody Screen Crossmatch 11/13/16 11/13/16 11/13/16 03:00 04:08 05:04 WBC RBC Hgb Hct MCV MCH MCHC RDW Plt Count MPV Neut % (Auto) Lymph % (Auto) [place] % (Auto) Eos % (Auto) Baso % (Auto) Neut # (Auto) Lymph # (Auto) [place] # (Auto) Eos # (Auto) Baso # (Auto) Total Counted Immature Gran % Nucleated RBC % Immature Gran # Segmented Neutrophils Lymphocytes Monocytes Nucleated RBCs # Platelet Estimate Hypochromasia Microcytosis Ovalocytes INR PT Patient/Control Mix Circ Anticoag PTT Patient Temperature ABG pH 7.414 ABG pH at Pt Temp ABG pCO2 33.1 L ABG pCO2 at Pt Temp ABG pO2 141.9 H ABG pO2 at Pt Temp ABG HCO3 20.7 ABG Total CO2 21.7 L ABG O2 Saturation 98.2 ABG Base Excess -3.2 L ABG Sodium VBG pH VBG pCO2 VBG pO2 VBG HCO3 VBG Total CO2 VBG O2 Saturation VBG Base Excess Hemoglobin 10.5 L Hematocrit 31.0 L Potassium 4.5 Glucose 108 H Ionized Calcium FiO2 Sodium Chloride Carbon Dioxide Anion Gap BUN Creatinine GFR Calculation BUN/Creatinine Ratio POC Glucose 132 H 117 H Calculated Osmolality Calcium Venous Ioniz Calcium Magnesium Total Bilirubin Direct Bilirubin AST ALT Alkaline Phosphatase Total Creatine Kinase CK-MB (CK-2) CK and CKMB Interp Troponin I Total Protein Albumin Globulin Albumin/Globulin Ratio Urine Color Urine Appearance Urine pH Ur Specific [place] Urine Protein Urine Glucose (UA) Urine Ketones Urine Blood Urine Nitrate Urine Bilirubin Urine Urobilinogen Urine Leukocytes Ur Squamous Epith Cells Ur Culture Indicated? Blood Type Antibody Screen Crossmatch 11/13/16 06:01 WBC RBC Hgb Hct MCV MCH MCHC RDW Plt Count MPV Neut % (Auto) Lymph % (Auto) [place] % (Auto) Eos % (Auto) Baso % (Auto) Neut # (Auto) Lymph # (Auto) [place] # (Auto) Eos # (Auto) Baso # (Auto) Total Counted Immature Gran % Nucleated RBC % Immature Gran # Segmented Neutrophils Lymphocytes Monocytes Nucleated RBCs # Platelet Estimate Hypochromasia Microcytosis Ovalocytes INR PT Patient/Control Mix Circ Anticoag PTT Patient Temperature ABG pH ABG pH at Pt Temp ABG pCO2 ABG pCO2 at Pt Temp ABG pO2 ABG pO2 at Pt Temp ABG HCO3 ABG Total CO2 ABG O2 Saturation ABG Base Excess ABG Sodium VBG pH VBG pCO2 VBG pO2 VBG HCO3 VBG Total CO2 VBG O2 Saturation VBG Base Excess Hemoglobin Hematocrit Potassium Glucose Ionized Calcium FiO2 Sodium Chloride Carbon Dioxide Anion Gap BUN Creatinine GFR Calculation BUN/Creatinine Ratio POC Glucose 114 H Calculated Osmolality Calcium Venous Ioniz Calcium Magnesium Total Bilirubin Direct Bilirubin AST ALT Alkaline Phosphatase Total Creatine Kinase CK-MB (CK-2) CK and CKMB Interp Troponin I Total Protein Albumin Globulin Albumin/Globulin Ratio Urine Color Urine Appearance Urine pH Ur Specific [place] Urine Protein Urine Glucose (UA) Urine Ketones Urine Blood Urine Nitrate Urine Bilirubin Urine Urobilinogen Urine Leukocytes Ur Squamous Epith Cells Ur Culture Indicated? Blood Type Antibody Screen Crossmatch Quality Measures - VTE Contraindication to Pharmacological VTE Prophylaxis: High Risk of Bleeding
--- NOTE | 2016-11-13 08:10 | XRay Report ---
History is post chest tube removal Comparison 11/12/2016 The heart is enlarged. ET tube is been removed in the interval. Anterior chest tubes been removed. Mild relative accentuation of the left heart border is similar on the prior study likely artifactual without a definite pneumothorax seen Minimal stranding opacities in the lung bases are unchanged. No new consolidation seen. Impression: Interval removal of anterior chest tubes without definite pneumothorax seen. PROCEDURE INTERPRETED AT [facility] DEPARTMENT OF RADIOLOGY Final Report Signed by: Dr. Rosalia Bone
[2016-11-13] MEDS ORDERED: METOPROLOL TARTRATE 25 MG TABLET PO SCH (09:00)
[2016-11-13] MEDS ORDERED: PANTOPRAZOLE 40 MG TABLET PO SCH (09:00)
[2016-11-13] MEDS: MULTIVITAMIN (CENTRUM) TABLET PO SCH (09:03)
[2016-11-13] MEDS: ATORVASTATIN 20 MG TABLET PO SCH (09:03)
[2016-11-13] MEDS ORDERED: INSULIN REGULAR 100 UNIT/ML SUBCUT SCH (10:00)
[2016-11-13] MEDS: INSULIN REGULAR 100 UNIT/ML SUBCUT SCH ×5 (12:14→23:36)
[2016-11-13] MEDS: SODIUM CHLORIDE 0.45% 1,000 ML IV SCH ×2 (12:19→12:20)
[2016-11-13 12:44] LABS: CKMB % 6.1 %
[2016-11-13 12:49] LABS: Troponin I Only 10.2 NG/ML (0.00-0.045)
[2016-11-13] MEDS: ONDANSETRON 4 MG/2 ML VIAL IV PRN (14:27)
[2016-11-13] MEDS: traZODone 50 MG TABLET PO SCH (20:26)
[2016-11-14] MEDS: ONDANSETRON 4 MG/2 ML VIAL IV PRN (00:17)
[2016-11-14] MEDS: INSULIN REGULAR 100 UNIT/ML SUBCUT SCH (04:30)
[2016-11-14 04:36] LABS: Basophils % 0.1 % (0.0-0.8); Hematocrit 27.8 VOL% (42.0-52.0); Hemoglobin 9.4 GM/DL (14.0-18.0); Immature Granulocytes % 0.7 %; Immature Granulocytes Absolute 0.11 #; Lymphocytes % 6.4 % (21.2-54.2); Mean Corpuscular HGB Conc 33.8 GM/DL (32-36); Mean Corpuscular Hemoglobin 32 PG (27-34); Mean Corpuscular Volume 94.9 FL (87-102); Mean Platelet Volume 12.2 FL (9.6-12.0); Monocytes # 1.5 10*3/uL (0.11-0.8); Monocytes % 10.3 % (1.7-12.7); Neutrophils # 12.2 10*3/uL (1.4-7.4); Neutrophils % 82.5 % (38.7-73.9); Platelet Count 114 T/CUMM (130-400); Red Blood Count 2.93 MC/CUMM (3.8-5.5); Red Cell Distribution Width 14.2 % (9.3-17.3); White Blood Count 14.8 T/CUMM (4-12)
[2016-11-14 05:06] LABS: CKMB % 3.5 %
[2016-11-14 05:10] LABS: Band Neutrophils 1 % (0-10); Lymphocytes 11 % (20-55); Segmented Neutrophils 80 % (50-85); Total Cells Counted 100
[2016-11-14 05:11] LABS: Albumin 2.8 G/DL (3.4-5.0); Bilirubin,Direct 0.3 MG/DL (0.0-0.20); Bilirubin,Total 0.9 MG/DL (0.2-1.0); Burr Cells Slight; Calcium 8.2 MG/DL (8.5-10.1); Giant Platelets Few; Hypochromasia 1+; Magnesium 2.2 MG/DL (1.8-2.4); Microcytosis Slight; Osmolality,Calculated 273.4 MOS/KG (273-304); Potassium 5.4 MMOL/L (3.5-5.1)
[2016-11-14 05:12] LABS: Ovalocytes Slight; Platelet Estimate Normal
--- NOTE | 2016-11-14 06:33 | Cardiothoracic Progress Note ---
Cardiothoracic Subjective Interval history: Patient looks and feels fairly comfortable. He is having a little more chest soreness today than yesterday. Vital signs have been stable and is breathing comfortably. I think that we can transfer him to telemetry and begin to increase his activities as tolerated. Overall his progress is satisfactory. Exam (Progress Note) - Constitutional Vitals: Period Temp Pulse Resp BP Sys/Lr Pulse Ox Last 24 Hr 98.6 F-99.1 F 51-77 10-26 104-157/35-70 93-100 Result/EKG - Labs CBC & BMP: 11/14/16 04:30 11/14/16 04:30 Labs: Laboratory Results - last 24 hr 11/11/16 11/12/16 11/12/16 03:26 16:21 17:18 WBC RBC Hgb Hct MCV MCH MCHC RDW Plt Count MPV Neut % (Auto) Lymph % (Auto) Dawes % (Auto) Eos % (Auto) Baso % (Auto) Neut # (Auto) Lymph # (Auto) Dawes # (Auto) Eos # (Auto) Baso # (Auto) Total Counted Immature Gran % Nucleated RBC % Immature Gran # Segmented Neutrophils Band Neutrophils Lymphocytes Monocytes Nucleated RBCs # Platelet Estimate Giant Platelets Hypochromasia Microcytosis Ovalocytes Kareen Cells Sodium Potassium Chloride Carbon Dioxide Anion Gap BUN Creatinine GFR Calculation BUN/Creatinine Ratio Glucose POC Glucose 176 H 207 H Calculated Osmolality Calcium Magnesium Total Bilirubin Direct Bilirubin AST ALT Alkaline Phosphatase Total Creatine Kinase CK-MB (CK-2) CK and CKMB Interp Troponin I Total Protein Albumin Globulin Albumin/Globulin Ratio Crossmatch See Detail 11/12/16 11/12/16 11/12/16 18:42 19:28 20:06 WBC RBC Hgb Hct MCV MCH MCHC RDW Plt Count MPV Neut % (Auto) Lymph % (Auto) Dawes % (Auto) Eos % (Auto) Baso % (Auto) Neut # (Auto) Lymph # (Auto) Dawes # (Auto) Eos # (Auto) Baso # (Auto) Total Counted Immature Gran % Nucleated RBC % Immature Gran # Segmented Neutrophils Band Neutrophils Lymphocytes Monocytes Nucleated RBCs # Platelet Estimate Giant Platelets Hypochromasia Microcytosis Ovalocytes Kareen Cells Sodium Potassium Chloride Carbon Dioxide Anion Gap BUN Creatinine GFR Calculation BUN/Creatinine Ratio Glucose POC Glucose 192 H 144 H 159 H Calculated Osmolality Calcium Magnesium Total Bilirubin Direct Bilirubin AST ALT Alkaline Phosphatase Total Creatine Kinase CK-MB (CK-2) CK and CKMB Interp Troponin I Total Protein Albumin Globulin Albumin/Globulin Ratio Crossmatch 11/12/16 11/12/16 11/12/16 20:59 22:03 22:52 WBC RBC Hgb Hct MCV MCH MCHC RDW Plt Count MPV Neut % (Auto) Lymph % (Auto) Dawes % (Auto) Eos % (Auto) Baso % (Auto) Neut # (Auto) Lymph # (Auto) Dawes # (Auto) Eos # (Auto) Baso # (Auto) Total Counted Immature Gran % Nucleated RBC % Immature Gran # Segmented Neutrophils Band Neutrophils Lymphocytes Monocytes Nucleated RBCs # Platelet Estimate Giant Platelets Hypochromasia Microcytosis Ovalocytes [place] Cells Sodium Potassium Chloride Carbon Dioxide Anion Gap BUN Creatinine GFR Calculation BUN/Creatinine Ratio Glucose POC Glucose 140 H 139 H 117 H Calculated Osmolality Calcium Magnesium Total Bilirubin Direct Bilirubin AST ALT Alkaline Phosphatase Total Creatine Kinase CK-MB (CK-2) CK and CKMB Interp Troponin I Total Protein Albumin Globulin Albumin/Globulin Ratio Crossmatch 11/13/16 11/13/16 11/13/16 00:19 01:08 02:00 WBC RBC Hgb Hct MCV MCH MCHC RDW Plt Count MPV Neut % (Auto) Lymph % (Auto) Dawes % (Auto) Eos % (Auto) Baso % (Auto) Neut # (Auto) Lymph # (Auto) Dawes # (Auto) Eos # (Auto) Baso # (Auto) Total Counted Immature Gran % Nucleated RBC % Immature Gran # Segmented Neutrophils Band Neutrophils Lymphocytes Monocytes Nucleated RBCs # Platelet Estimate Giant Platelets Hypochromasia Microcytosis Ovalocytes Kareen Cells Sodium Potassium Chloride Carbon Dioxide Anion Gap BUN Creatinine GFR Calculation BUN/Creatinine Ratio Glucose POC Glucose 116 H 135 H 125 H Calculated Osmolality Calcium Magnesium Total Bilirubin Direct Bilirubin AST ALT Alkaline Phosphatase Total Creatine Kinase CK-MB (CK-2) CK and CKMB Interp Troponin I Total Protein Albumin Globulin Albumin/Globulin Ratio Crossmatch 11/13/16 11/13/16 11/13/16 02:57 04:08 05:04 WBC RBC Hgb Hct MCV MCH MCHC RDW Plt Count MPV Neut % (Auto) Lymph % (Auto) Dawes % (Auto) Eos % (Auto) Baso % (Auto) Neut # (Auto) Lymph # (Auto) Dawes # (Auto) Eos # (Auto) Baso # (Auto) Total Counted Immature Gran % Nucleated RBC % Immature Gran # Segmented Neutrophils Band Neutrophils Lymphocytes Monocytes Nucleated RBCs # Platelet Estimate Giant Platelets Hypochromasia Microcytosis Ovalocytes [place] Cells Sodium Potassium Chloride Carbon Dioxide Anion Gap BUN Creatinine GFR Calculation BUN/Creatinine Ratio Glucose POC Glucose 118 H 132 H 117 H Calculated Osmolality Calcium Magnesium Total Bilirubin Direct Bilirubin AST ALT Alkaline Phosphatase Total Creatine Kinase CK-MB (CK-2) CK and CKMB Interp Troponin I Total Protein Albumin Globulin Albumin/Globulin Ratio Crossmatch 11/13/16 11/13/16 11/13/16 06:01 12:08 12:08 WBC RBC Hgb Hct MCV MCH MCHC RDW Plt Count MPV Neut % (Auto) Lymph % (Auto) Dawes % (Auto) Eos % (Auto) Baso % (Auto) Neut # (Auto) Lymph # (Auto) Dawes # (Auto) Eos # (Auto) Baso # (Auto) Total Counted Immature Gran % Nucleated RBC % Immature Gran # Segmented Neutrophils Band Neutrophils Lymphocytes Monocytes Nucleated RBCs # Platelet Estimate Giant Platelets Hypochromasia Microcytosis Ovalocytes [place] Cells Sodium Potassium Chloride Carbon Dioxide Anion Gap BUN Creatinine GFR Calculation BUN/Creatinine Ratio Glucose POC Glucose 114 H 135 H Calculated Osmolality Calcium Magnesium Total Bilirubin Direct Bilirubin AST ALT Alkaline Phosphatase Total Creatine Kinase 761 H CK-MB (CK-2) 46.2 H CK and CKMB Interp 6.1 Troponin I 10.200 H D Total Protein Albumin Globulin Albumin/Globulin Ratio Crossmatch 11/13/16 11/13/16 11/13/16 16:02 18:28 20:22 WBC RBC Hgb Hct MCV MCH MCHC RDW Plt Count MPV Neut % (Auto) Lymph % (Auto) Dawes % (Auto) Eos % (Auto) Baso % (Auto) Neut # (Auto) Lymph # (Auto) Dawes # (Auto) Eos # (Auto) Baso # (Auto) Total Counted Immature Gran % Nucleated RBC % Immature Gran # Segmented Neutrophils Band Neutrophils Lymphocytes Monocytes Nucleated RBCs # Platelet Estimate Giant Platelets Hypochromasia Microcytosis Ovalocytes Kareen Cells Sodium Potassium Chloride Carbon Dioxide Anion Gap BUN Creatinine GFR Calculation BUN/Creatinine Ratio Glucose POC Glucose 152 H 191 H 141 H Calculated Osmolality Calcium Magnesium Total Bilirubin Direct Bilirubin AST ALT Alkaline Phosphatase Total Creatine Kinase CK-MB (CK-2) CK and CKMB Interp Troponin I Total Protein Albumin Globulin Albumin/Globulin Ratio Crossmatch 11/13/16 11/14/16 11/14/16 23:19 03:14 04:30 WBC 14.8 H RBC 2.93 L Hgb 9.4 L Hct 27.8 L MCV 94.9 MCH 32 MCHC 33.8 RDW 14.2 Plt Count 114 L MPV 12.2 H Neut % (Auto) 82.5 H Lymph % (Auto) 6.4 L Dawes % (Auto) 10.3 Eos % (Auto) 0.0 Baso % (Auto) 0.1 Neut # (Auto) 12.2 H Lymph # (Auto) 1.0 L Dawes # (Auto) 1.5 H Eos # (Auto) 0.0 Baso # (Auto) 0.0 Total Counted 100 Immature Gran % 0.7 Nucleated RBC % 0.0 Immature Gran # 0.11 Segmented Neutrophils 80 Band Neutrophils 1 Lymphocytes 11 L Monocytes 8 Nucleated RBCs # 0.00 Platelet Estimate Normal Giant Platelets Few Hypochromasia 1+ Microcytosis Slight Ovalocytes Slight [place] Cells Slight Sodium Potassium Chloride Carbon Dioxide Anion Gap BUN Creatinine GFR Calculation BUN/Creatinine Ratio Glucose POC Glucose 165 H 164 H Calculated Osmolality Calcium Magnesium Total Bilirubin Direct Bilirubin AST ALT Alkaline Phosphatase Total Creatine Kinase CK-MB (CK-2) CK and CKMB Interp Troponin I Total Protein Albumin Globulin Albumin/Globulin Ratio Crossmatch 11/14/16 11/14/16 04:30 04:30 WBC RBC Hgb Hct MCV MCH MCHC RDW Plt Count MPV Neut % (Auto) Lymph % (Auto) Dawes % (Auto) Eos % (Auto) Baso % (Auto) Neut # (Auto) Lymph # (Auto) Dawes # (Auto) Eos # (Auto) Baso # (Auto) Total Counted Immature Gran % Nucleated RBC % Immature Gran # Segmented Neutrophils Band Neutrophils Lymphocytes Monocytes Nucleated RBCs # Platelet Estimate Giant Platelets Hypochromasia Microcytosis Ovalocytes Kareen Cells Sodium 133 L Potassium 5.4 H Chloride 104 Carbon Dioxide 26 Anion Gap 8.4 BUN 29 H Creatinine 1.10 GFR Calculation 75 BUN/Creatinine Ratio 26.00 H Glucose 141 H POC Glucose Calculated Osmolality 273.4 Calcium 8.2 L Magnesium 2.2 Total Bilirubin 0.90 Direct Bilirubin 0.30 H AST 65 H ALT 30 Alkaline Phosphatase 36 L Total Creatine Kinase 521 H D CK-MB (CK-2) 18.3 H D CK and CKMB Interp 3.5 Troponin I 8.000 H D Total Protein 5.0 L Albumin 2.8 L Globulin 2.2 L Albumin/Globulin Ratio 1.2 Crossmatch Quality Measures - VTE Contraindication to Pharmacological VTE Prophylaxis: High Risk of Bleeding
[2016-11-14] MEDS ORDERED: MAGNESIUM SULF RIDER 4 GM in PREMIX 1 EACH IV PRN (07:20)
[2016-11-14] MEDS ORDERED: MORPHINE 2 MG/1 ML SYRINGE IV PRN (07:20)
[2016-11-14] MEDS ORDERED: MAGNESIUM SULF RIDER 2 GM in PREMIX 1 EACH IV PRN (07:20)
[2016-11-14] MEDS ORDERED: ALUMINUM/MAGNES/SIMETH MAX STR 30 ML UDCUP PO PRN (07:20)
[2016-11-14] MEDS ORDERED: DEXTROSE 50% 25 GM/50 ML VIAL IV PRN ×2 (07:20)
[2016-11-14] MEDS ORDERED: ACETAMINOPHEN 325 MG TABLET PO PRN (07:20)
[2016-11-14] MEDS ORDERED: SODIUM CHLOR 0.45% KCL 20 MEQ 20 MEQ/1,000 ML BAG IV SCH (07:20)
[2016-11-14] MEDS ORDERED: MAGNESIUM HYDROXIDE SUSP 30 ML UDCUP PO PRN (07:20)
[2016-11-14] MEDS ORDERED: GLUCAGON 1 MG VIAL IM PRN ×2 (07:20)
--- NOTE | 2016-11-14 08:01 | XRay Report ---
Exam: XR chest 1V portable Indication: Chest tube removal Comparison study: 11/13/2016 chest radiograph Findings: Cardiac silhouette is enlarged, similar to prior. Right-sided central venous catheter in stable position. Median sternotomy wiring is again noted. Diffuse bilateral interstitial prominence is similar prior may represent underlying scarring changes. Minimal basilar opacities, left more so than right are noted and slightly increased from prior. No pneumothorax is identified. Impression: Cardiomegaly with slight increase in basilar opacities may represent atelectasis and/or developing infiltrates and small left pleural effusion. PROCEDURE INTERPRETED AT [facility] DEPARTMENT OF RADIOLOGY Final Report Signed by: Guanako Serrano
[2016-11-14] MEDS: GABAPENTIN 300 MG CAPSULE PO SCH ×3 (08:50→20:29)
[2016-11-14] MEDS: ATORVASTATIN 20 MG TABLET PO SCH (08:50)
[2016-11-14] MEDS: FERROUS SULFATE 325 MG TABLET PO SCH (08:50)
[2016-11-14] MEDS: MULTIVITAMIN (CENTRUM) TABLET PO SCH (08:50)
[2016-11-14] MEDS: amLODIPine 5 MG TABLET PO SCH (08:50)
[2016-11-14] MEDS: CHLORHEXIDINE 0.12% ORAL RINSE 60 ML BOTTLE SWISH/SPIT SCH ×2 (08:51→20:30)
[2016-11-14] MEDS: DOCUSATE SODIUM 100 MG CAPSULE PO SCH (08:51)
[2016-11-14] MEDS: ASPIRIN EC 81 MG TABLET PO SCH (08:51)
[2016-11-14] MEDS: PANTOPRAZOLE 40 MG TABLET PO SCH (08:51)
--- NOTE | 2016-11-14 17:21 | Sleep Medicine Consult ---
Assessment and Plan (1) Unspecified sleep apnea Status: Acute Assessment and plan: This patient does have symptoms and comorbidities that would certainly be concerning for sleep apnea. We will initiate HST evaluation tonight and follow- up results. Current Visit: Yes (2) Coronary artery disease Status: Acute Assessment and plan: I reviewed the Rose data from Lancet 2004 with the patient to their understanding. This study proved significant reduction in the risk of fatal and nonfatal cardiac events in patients with severe obstructive sleep apnea compliant with CPAP, in comparison with those noncompliant with CPAP for severe sleep apnea. Current Visit: Yes (3) Atrial fibrillation Status: Acute Assessment and plan: The prevalence for obstructive sleep apnea in patients with atrial fib can be as high as 80%. Treating the underlying sleep apnea often can improve management of atrial fib and reduce recurrence rate by almost 50%. Current Visit: Yes (4) Essential hypertension Status: Acute Assessment and plan: The prevalence rate for obstructive sleep apnea patients with hypertension is 35 %. That rate can be as high as 80% in patients who require 4 or more medications for blood pressure control. Current Visit: Yes History of Present Illness Chief complaint: Sleep apnea History of present illness: Mr. Amaral is a 86 year old male admitted originally for atrial fibrillation with rapid ventricular response and was found to have significant coronary artery disease. He was transferred to [facility] for elective bypass surgery. He had two-vessel bypass surgery with LANG graft to the LAD and saphenous vein graft to the RCA. Preoperatively, he was screened at being at high risk for sleep apnea and sleep medicine consult was given. Patient had a stop bang score of 5 and an Stearns sleepiness score of 13. He does have a history of snoring loudly but has never been told that he stops breathing during his sleep. He awakens once or twice a night to urinate. He does have symptoms of sleepiness and fatigue during the day. His past medical history is notable for hypertension in addition to above but not notable for diabetes. He resides in [facility] and is followed primarily by Dr. Dejan Shankar. Home Medications Medication Instructions Recorded Confirmed Type Acetaminophen Tab [Tylenol Tab] 2 tablet PO Q4-6H PRN 11/09/16 11/09/16 History Aspirin [Ecotrin] 81 mg PO DAILY 11/09/16 11/13/16 History Atorvastatin [Lipitor] 20 mg PO DAILY 11/09/16 11/13/16 History Gabapentin 300 mg PO TID 11/09/16 11/13/16 History Hydrocodone/Acetaminophen 1 tablet PO Q6HR PRN 11/09/16 11/09/16 History [Hydrocodon-Acetaminoph 7.5-325] Losartan [Cozaar] 100 mg PO BEDTIME 11/09/16 11/09/16 History Metoprolol Tartrate 25 mg PO BID 11/09/16 11/13/16 History Multivitamin [Multivitamins] 1 tablespoon PO DAILY 11/09/16 11/09/16 History Pantoprazole Tab [Protonix Tab] 1 tablet PO DAILY 11/09/16 11/09/16 History amLODIPine [Norvasc] 5 mg PO DAILY 11/09/16 11/09/16 History traZODone [Desyrel] 100 mg PO DAILY 11/09/16 11/13/16 History Allergies Allergy/AdvReac Type Severity Reaction Status Date / Time codeine Allergy Mild Nausea Verified 11/09/16 14:26 latex Allergy Mild RASH Verified 11/09/16 14:26 Penicillins Allergy Mild RASH Verified 11/09/16 14:25 Sulfa (Sulfonamide Allergy Mild RASH Verified 11/09/16 14:26 Antibiotics) Review of systems: Otherwise unremarkable from a sleep medicine standpoint Exam (Pulmon[place]) H&P - Constitutional Vitals: Period Temp Pulse Resp BP Sys/Lr Pulse Ox Last 24 Hr 98.1 F-98.9 F 60-89 12-26 107-149/35-75 93-100 Exam: Patient is alert and responsive in no acute distress. Appears to be doing fairly well status post bypass surgery. Pupils equal round reactive to light and accommodation. Extraocular movements intact. Oropharynx with a class III Mallampati exam. Neck is supple without adenopathy or thyromegaly. Chest with symmetrical breath sounds without significant wheeze or rhonchi. He has got a clean dry sternal dressing in place. Cardiac exam reveals a regular rhythm without murmur or gallop. Abdomen soft nontender without palpable hepatosplenomegaly or mass. Extremities without calf tenderness. Neurologically, he is grossly intact. Medical,Surgical,& Family Hx - Medical History Cardio: History of: Cardiac Dysrhythmia, Hypertension, [place] Neurology: History of: Cerebrovascular Accident (LAST YEAR), TIA Genitourinary: History of: Prostate Problems Gastrointestinal: Comment Only: GI Problems (CONSTIPATION) Musculoskeletal: History of: Back/Neck Problems Comment Only: Musculoskeletal Problems (BACK SURGERY) - Surgical History Cardiac Surgeries: Sugical HX of: Cardiac Catheterization Neurologic Surgeries: Patient denies: Neurologic Surgery HEENT Surgeries: Surgical HX of: Eye Surgery, Tonsilectomy & Adenoidectomy Abdominal Surgeries: Surgical HX of: Appendectomy Reproductive Surgeries: Surgical HX of;: Prostate Surgery - Family History Family History: Reports;: Family Cancer, Family Diabetes, Family Heart Disease, Family Hypertension, Family Stroke - Social History Smoking Status: Never smoker Results - Labs CBC & BMP: 11/14/16 04:30 11/14/16 04:30 Lab Results: I have reviewed the past 24 hour labs Quality Measures - VTE Contraindication to Pharmacological VTE Prophylaxis: High Risk of Bleeding Specialty Discharge - Follow Up or Referrals
[2016-11-14] MEDS: traZODone 50 MG TABLET PO SCH (20:29)
[2016-11-14] MEDS: LOSARTAN 50 MG TABLET PO SCH (20:29)
[2016-11-14] MEDS ORDERED: AMIODARONE INJ 100 MG in DEXTROSE 5% 100 ML IV ONE (21:38)
[2016-11-14] MEDS ORDERED: AMIODARONE 150 MG/3 ML VIAL ONE (21:46)
[2016-11-14] MEDS ORDERED: AMIODARONE INJ 450 MG in DEXTROSE 5% 241 ML IV SCH (22:00)
[2016-11-14] MEDS ORDERED: DILTIAZEM INJ 100 MG in SODIUM CHLORIDE 0.9% 100 ML IV SCH (23:00)
[2016-11-14] MEDS: ZALEPLON 5 MG CAPSULE PO PRN (23:16)
[2016-11-14] MEDS: oxyCODONE/ACETAMINOPHEN 5-325 MG TABLET PO PRN (23:16)
[2016-11-15] MEDS ORDERED: AMIODARONE INJ 450 MG in DEXTROSE 5% 241 ML IV SCH (04:00)
[2016-11-15 05:12] LABS: Eosinophils % 0.2 % (0.00-10.9); Hematocrit 27.4 VOL% (42.0-52.0); Hemoglobin 9.3 GM/DL (14.0-18.0); Immature Granulocytes % 0.8 %; Lymphocytes # 1.5 10*3/uL (1.4-4.0); Lymphocytes % 11.5 % (21.2-54.2); Mean Corpuscular HGB Conc 33.9 GM/DL (32-36); Mean Corpuscular Hemoglobin 32 PG (27-34); Mean Corpuscular Volume 92.9 FL (87-102); Mean Platelet Volume 12.5 FL (9.6-12.0); Monocytes # 1.7 10*3/uL (0.11-0.8); Neutrophils # 9.5 10*3/uL (1.4-7.4); Neutrophils % 74.5 % (38.7-73.9); Platelet Count 113 T/CUMM (130-400); Red Blood Count 2.95 MC/CUMM (3.8-5.5); Red Cell Distribution Width 13.8 % (9.3-17.3); White Blood Count 12.7 T/CUMM (4-12)
[2016-11-15 05:49] LABS: Alanine Aminotransferase 59 U/L (16-61); Albumin 2.7 G/DL (3.4-5.0); Alkaline Phosphatase 52 U/L (45-117); Aspartate Amino Transferase 71 U/L (0-37); Bilirubin,Indirect 0.8 MG/DL (0.0-1.0); Blood Urea Nitrogen 30 MG/DL (7-18); Glucose 128 MG/DL (74-106); Magnesium 2.2 MG/DL (1.8-2.4); Osmolality,Calculated 280.8 MOS/KG (273-304); Potassium 4.9 MMOL/L (3.5-5.1); Sodium 137 MMOL/L (136-145); Total Protein 4.9 G/DL (6.4-8.3)
[2016-11-15] MEDS ORDERED: FUROSEMIDE 40 MG/4 ML VIAL IV ONE (06:00)
--- NOTE | 2016-11-15 06:27 | EKG Report ---
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
[2016-11-15] MEDS ORDERED: DILTIAZEM 50 MG/10 ML VIAL IV ONE (08:24)
--- NOTE | 2016-11-15 08:36 | Cardiothoracic Progress Note ---
Cardiothoracic Subjective Interval history: She does not feel as well today. He has been having intermittent runs of atrial fibrillation and atrial flutter through the night and this morning. He is on intravenous amiodarone and we are going to start Cardizem for rate control. Otherwise she has been doing reasonably well and vital signs have been stable. He is breathing comfortably. We will try to slowly increase his activity once his heart rate is under better control. Exam (Progress Note) - Constitutional Vitals: Period Temp Pulse Resp BP Sys/Lr Pulse Ox Last 24 Hr 97.9 F-99.7 F 60-141 16-20 99-149/53-75 92-97 Result/EKG - Labs CBC & BMP: 11/15/16 05:09 11/15/16 05:00 Labs: Laboratory Results - last 24 hr 11/14/16 11/14/16 11/14/16 11:13 16:33 20:31 WBC RBC Hgb Hct MCV MCH MCHC RDW Plt Count MPV Neut % (Auto) Lymph % (Auto) Dillon % (Auto) Eos % (Auto) Baso % (Auto) Neut # (Auto) Lymph # (Auto) Dillon # (Auto) Eos # (Auto) Baso # (Auto) Immature Gran % Nucleated RBC % Immature Gran # Nucleated RBCs # Sodium Potassium Chloride Carbon Dioxide Anion Gap BUN Creatinine GFR Calculation BUN/Creatinine Ratio Glucose POC Glucose 196 H 195 H 132 H Calculated Osmolality Calcium Magnesium Total Bilirubin Direct Bilirubin Indirect Bilirubin AST ALT Alkaline Phosphatase Total Creatine Kinase CK-MB (CK-2) Troponin I Total Protein Albumin Globulin Albumin/Globulin Ratio 11/14/16 11/15/16 11/15/16 23:15 05:00 05:09 WBC 12.7 H RBC 2.95 L Hgb 9.3 L Hct 27.4 L MCV 92.9 MCH 32 MCHC 33.9 RDW 13.8 Plt Count 113 L MPV 12.5 H Neut % (Auto) 74.5 H Lymph % (Auto) 11.5 L Dillon % (Auto) 13.0 H Eos % (Auto) 0.2 Baso % (Auto) 0.0 Neut # (Auto) 9.5 H Lymph # (Auto) 1.5 Dillon # (Auto) 1.7 H Eos # (Auto) 0.0 Baso # (Auto) 0.0 Immature Gran % 0.8 Nucleated RBC % 0.0 Immature Gran # 0.10 Nucleated RBCs # 0.00 Sodium 137 Potassium 4.9 Chloride 104 Carbon Dioxide 29 Anion Gap 8.9 BUN 30 H Creatinine 1.00 GFR Calculation 84 BUN/Creatinine Ratio 30.00 H Glucose 128 H POC Glucose 172 H Calculated Osmolality 280.8 Calcium 8.0 L Magnesium 2.2 Total Bilirubin 1.10 H Direct Bilirubin 0.30 H Indirect Bilirubin 0.8 AST 71 H ALT 59 Alkaline Phosphatase 52 Total Creatine Kinase 398 H D CK-MB (CK-2) 5.0 H D Troponin I 6.110 H D Total Protein 4.9 L Albumin 2.7 L Globulin 2.2 L Albumin/Globulin Ratio 1.2 11/15/16 07:22 WBC RBC Hgb Hct MCV MCH MCHC RDW Plt Count MPV Neut % (Auto) Lymph % (Auto) Dillon % (Auto) Eos % (Auto) Baso % (Auto) Neut # (Auto) Lymph # (Auto) Dillon # (Auto) Eos # (Auto) Baso # (Auto) Immature Gran % Nucleated RBC % Immature Gran # Nucleated RBCs # Sodium Potassium Chloride Carbon Dioxide Anion Gap BUN Creatinine GFR Calculation BUN/Creatinine Ratio Glucose POC Glucose 138 H Calculated Osmolality Calcium Magnesium Total Bilirubin Direct Bilirubin Indirect Bilirubin AST ALT Alkaline Phosphatase Total Creatine Kinase CK-MB (CK-2) Troponin I Total Protein Albumin Globulin Albumin/Globulin Ratio Quality Measures - VTE Contraindication to Pharmacological VTE Prophylaxis: High Risk of Bleeding Specialty Discharge - Follow Up or Referrals
--- NOTE | 2016-11-15 08:38 | XRay Report ---
History is short of breath Comparison 11/14/2016 The heart is enlarged. There are slight increasing hazy opacities in the lower half the right chest. Mild hazy opacification lower half left chest with more focal consolidation in the retrocardiac left base remains. The small underlying effusion suspected. Mild subcutaneous gas in the left chest again noted. Mildly accentuated the left heart border again seen, also present on the preoperative films Impression: 1. Slight increasing hazy infiltrates versus edema in the lung bases PROCEDURE INTERPRETED AT [facility] DEPARTMENT OF RADIOLOGY Final Report Signed by: Dr. Rosalia Bone
[2016-11-15] MEDS: ASPIRIN EC 81 MG TABLET PO SCH (08:53)
[2016-11-15] MEDS: DOCUSATE SODIUM 100 MG CAPSULE PO SCH (08:53)
[2016-11-15] MEDS: ATORVASTATIN 20 MG TABLET PO SCH (08:54)
[2016-11-15] MEDS: FERROUS SULFATE 325 MG TABLET PO SCH (08:54)
[2016-11-15] MEDS: APIXABAN 2.5 MG TABLET PO SCH ×2 (08:54→21:41)
[2016-11-15] MEDS: amLODIPine 5 MG TABLET PO SCH (08:54)
[2016-11-15] MEDS: GABAPENTIN 300 MG CAPSULE PO SCH ×3 (08:54→21:42)
[2016-11-15] MEDS: MULTIVITAMIN (CENTRUM) TABLET PO SCH (08:54)
[2016-11-15] MEDS: PANTOPRAZOLE 40 MG TABLET PO SCH (08:54)
[2016-11-15] MEDS: CHLORHEXIDINE 0.12% ORAL RINSE 60 ML BOTTLE SWISH/SPIT SCH ×2 (08:55→21:43)
[2016-11-15] MEDS ORDERED: methylPREDNISolone ACETATE 80 MG/1 ML VIAL IM ONE (09:00)
[2016-11-15] MEDS: METOPROLOL TARTRATE 25 MG TABLET PO SCH ×2 (10:37→21:42)
[2016-11-15] MEDS: DILTIAZEM INJ 100 MG in SODIUM CHLORIDE 0.9% 100 ML IV SCH (12:26)
--- NOTE | 2016-11-15 16:58 | Sleep Medicine Progress Note ---
Assessment and Plan (1) Unspecified sleep apnea Status: Acute Assessment and plan: We will set up outpatient polysomnography at the [facility] sleep clinic. Current Visit: Yes (2) Coronary artery disease Status: Acute Current Visit: Yes (3) Atrial fibrillation Status: Acute Current Visit: Yes (4) Essential hypertension Status: Acute Current Visit: Yes Sleep Medicine Subjective Interval history: Patient did not have significant sleep apnea on his overnight HST. His overall AHI was 4.1. With his underlying heart disease and current recovery from bypass surgery, we will hold off further evaluation at this point given his relatively unremarkable findings. He did have O2 desaturation during sleep to 82%. We will set him up for outpatient sleep study and this will be done at the [facility] sleep center since he [facility]. Follow-up will be there in the sleep clinic. Thank you for this consult. Exam (Progress Note) - Constitutional Vitals: Period Temp Pulse Resp BP Sys/Lr Pulse Ox Last 24 Hr 97.9 F-99.7 F 68-141 16-20 96-125/41-73 90-97 Exam: He is alert and responsive in no acute distress. Chest with fair air movement no significant wheeze or rhonchi. Cardiac exam reveals a regular rhythm without murmur or gallop. Abdomen soft nontender extremities without calf tenderness or increased edema. Neurologically, he is grossly intact. Results - Labs CBC & BMP: 11/15/16 05:09 11/15/16 05:00 Lab Results: I have reviewed the past 24 hour labs Specialty Discharge - Follow Up or Referrals
[2016-11-15] MEDS: AMIODARONE INJ 450 MG in DEXTROSE 5% 241 ML IV SCH ×2 (20:30→21:40)
[2016-11-15] MEDS: LOSARTAN 50 MG TABLET PO SCH (21:41)
[2016-11-15] MEDS: traZODone 50 MG TABLET PO SCH (21:42)
[2016-11-16] MEDS: ONDANSETRON 4 MG/2 ML VIAL IV PRN ×4 (03:22→23:24)
[2016-11-16 04:38] LABS: Basophils % 0.1 % (0.0-0.8); Eosinophils # 0.4 10*3/uL (0.0-0.87); Eosinophils % 2.1 % (0.00-10.9); Hematocrit 29.8 VOL% (42.0-52.0); Immature Granulocytes % 1.2 %; Lymphocytes # 2.7 10*3/uL (1.4-4.0); Lymphocytes % 16.1 % (21.2-54.2); Mean Corpuscular HGB Conc 33.6 GM/DL (32-36); Mean Corpuscular Hemoglobin 32 PG (27-34); Mean Corpuscular Volume 94.6 FL (87-102); Mean Platelet Volume 11.9 FL (9.6-12.0); Monocytes # 2.2 10*3/uL (0.11-0.8); Monocytes % 12.6 % (1.7-12.7); Neutrophils # 11.6 10*3/uL (1.4-7.4); Neutrophils % 67.9 % (38.7-73.9); Platelet Count 181 T/CUMM (130-400); Red Blood Count 3.15 MC/CUMM (3.8-5.5); Red Cell Distribution Width 13.6 % (9.3-17.3)
[2016-11-16 04:42] LABS: ABG Base Excess 2.3 MMOL/L (-2.5-2.5); ABG HCO3 26.4 MMOL/L (20-26); ABG Oxygen Saturation 96.1 % (95-100); ABG PCO2 41.1 MM HG (35-48); ABG PH 7.424 (7.35-7.45); ABG PO2 78.2 MM HG (80-95); ABG TCO2 24.2 MMOL/L (23-27)
[2016-11-16 04:48] LABS: Partial Thromboplastin Time 25.9 SECS (0-40)
[2016-11-16 05:06] LABS: Alanine Aminotransferase 83 U/L (16-61); Albumin 2.8 G/DL (3.4-5.0); Alkaline Phosphatase 94 U/L (45-117); Aspartate Amino Transferase 81 U/L (0-37); Bilirubin,Indirect 1.1 MG/DL (0.0-1.0); Blood Urea Nitrogen 30 MG/DL (7-18); Calcium 8.2 MG/DL (8.5-10.1); Glucose 129 MG/DL (74-106); Osmolality,Calculated 277.1 MOS/KG (273-304); Potassium 4.2 MMOL/L (3.5-5.1); Sodium 135 MMOL/L (136-145); Total Protein 5.2 G/DL (6.4-8.3)
--- NOTE | 2016-11-16 06:24 | Cardiothoracic Progress Note ---
Cardiothoracic Subjective Interval history: Patient awoke earlier this morning with complaints of chest pain which he said was different from his cardiac pain but was more like his postoperative pain. He then experienced nausea and vomiting and subsequent to this was noted to be less responsive and to have some weakness on his left side especially his left lower extremity. A stroke alert was declared and the patient underwent CT scanning of his brain which to my reading does not show obvious injury. Patient has been transferred to the intensive care unit where I saw him and he was beginning to recover movement in his lower extremity and his left upper extremity although both were weaker than his right side. He was able to speak and was no longer having pain. Clinically it appears that he has had a neurological injury hopefully a transient ischemic event. All of his laboratory work and his chest x-ray do not show any acute changes. He is presently in sinus rhythm but has recently converted in the past several hours from atrial fibrillation. This makes an embolic phenomenon likely and I suspect this is the source of his event. Exam (Progress Note) - Constitutional Vitals: Period Temp Pulse Resp BP Sys/Lr Pulse Ox Last 24 Hr 97.9 F-99.5 F 66-141 16-20 89-113/41-65 90-96 Result/EKG - Labs CBC & BMP: 11/16/16 04:33 11/16/16 04:33 Labs: Laboratory Results - last 24 hr 11/15/16 11/15/16 11/15/16 07:22 11:44 15:21 WBC RBC Hgb Hct MCV MCH MCHC RDW Plt Count MPV Neut % (Auto) Lymph % (Auto) [place] % (Auto) Eos % (Auto) Baso % (Auto) Neut # (Auto) Lymph # (Auto) [place] # (Auto) Eos # (Auto) Baso # (Auto) Immature Gran % Nucleated RBC % Immature Gran # Nucleated RBCs # INR PT Patient/Control Mix Circ Anticoag PTT ABG pH ABG pCO2 ABG pO2 ABG HCO3 ABG Total CO2 ABG O2 Saturation ABG Base Excess Sodium Potassium Chloride Carbon Dioxide Anion Gap BUN Creatinine GFR Calculation BUN/Creatinine Ratio Glucose POC Glucose 138 H 147 H 139 H Calculated Osmolality Calcium Magnesium Total Bilirubin Direct Bilirubin Indirect Bilirubin AST ALT Alkaline Phosphatase Total Creatine Kinase CK-MB (CK-2) Troponin I Total Protein Albumin Globulin Albumin/Globulin Ratio 11/15/16 11/16/16 11/16/16 19:33 03:36 04:21 WBC RBC Hgb Hct MCV MCH MCHC RDW Plt Count MPV Neut % (Auto) Lymph % (Auto) [place] % (Auto) Eos % (Auto) Baso % (Auto) Neut # (Auto) Lymph # (Auto) [place] # (Auto) Eos # (Auto) Baso # (Auto) Immature Gran % Nucleated RBC % Immature Gran # Nucleated RBCs # INR PT Patient/Control Mix Circ Anticoag PTT ABG pH ABG pCO2 ABG pO2 ABG HCO3 ABG Total CO2 ABG O2 Saturation ABG Base Excess Sodium Potassium Chloride Carbon Dioxide Anion Gap BUN Creatinine GFR Calculation BUN/Creatinine Ratio Glucose POC Glucose 137 H 135 H 140 H Calculated Osmolality Calcium Magnesium Total Bilirubin Direct Bilirubin Indirect Bilirubin AST ALT Alkaline Phosphatase Total Creatine Kinase CK-MB (CK-2) Troponin I Total Protein Albumin Globulin Albumin/Globulin Ratio 11/16/16 11/16/16 11/16/16 04:33 04:33 04:33 WBC 17.0 H D RBC 3.15 L Hgb 10.0 L Hct 29.8 L MCV 94.6 MCH 32 MCHC 33.6 RDW 13.6 Plt Count 181 D MPV 11.9 Neut % (Auto) 67.9 Lymph % (Auto) 16.1 L [place] % (Auto) 12.6 Eos % (Auto) 2.1 Baso % (Auto) 0.1 Neut # (Auto) 11.6 H Lymph # (Auto) 2.7 [place] # (Auto) 2.2 H Eos # (Auto) 0.4 Baso # (Auto) 0.0 Immature Gran % 1.2 Nucleated RBC % 0.0 Immature Gran # 0.20 Nucleated RBCs # 0.00 INR 1.0 PT Patient/Control Mix 11.0 Circ Anticoag PTT 25.9 ABG pH ABG pCO2 ABG pO2 ABG HCO3 ABG Total CO2 ABG O2 Saturation ABG Base Excess Sodium 135 L Potassium 4.2 Chloride 100 Carbon Dioxide 29 Anion Gap 10.2 BUN 30 H Creatinine 1.10 GFR Calculation 75 BUN/Creatinine Ratio 27.00 H Glucose 129 H POC Glucose Calculated Osmolality 277.1 Calcium 8.2 L Magnesium 2.0 Total Bilirubin 1.70 H Direct Bilirubin 0.60 H Indirect Bilirubin 1.1 H AST 81 H ALT 83 H Alkaline Phosphatase 94 Total Creatine Kinase 300 D CK-MB (CK-2) 2.2 Troponin I 4.410 H D Total Protein 5.2 L Albumin 2.8 L Globulin 2.4 Albumin/Globulin Ratio 1.1 11/16/16 11/16/16 04:33 04:33 WBC RBC Hgb Hct MCV MCH MCHC RDW Plt Count MPV Neut % (Auto) Lymph % (Auto) [place] % (Auto) Eos % (Auto) Baso % (Auto) Neut # (Auto) Lymph # (Auto) [place] # (Auto) Eos # (Auto) Baso # (Auto) Immature Gran % Nucleated RBC % Immature Gran # Nucleated RBCs # INR PT Patient/Control Mix Circ Anticoag PTT ABG pH 7.424 ABG pCO2 41.1 ABG pO2 78.2 L ABG HCO3 26.4 H ABG Total CO2 24.2 ABG O2 Saturation 96.1 ABG Base Excess 2.3 Sodium Potassium Chloride Carbon Dioxide Anion Gap BUN Creatinine GFR Calculation BUN/Creatinine Ratio Glucose POC Glucose Calculated Osmolality Calcium Magnesium Total Bilirubin Direct Bilirubin Indirect Bilirubin AST ALT Alkaline Phosphatase Total Creatine Kinase 297 CK-MB (CK-2) 1.7 Troponin I 4.530 H Total Protein Albumin Globulin Albumin/Globulin Ratio Quality Measures - VTE Contraindication to Pharmacological VTE Prophylaxis: High Risk of Bleeding Specialty Discharge - Follow Up or Referrals
--- NOTE | 2016-11-16 06:53 | CT Report ---
CT head/brain wo con Indication: Rule out stroke Comparison: None Technique: Multiple axial tomographic images of the brain were obtained without the use of intravenous contrast. Findings: Moderate global volume loss present. Moderate periventricular and subcortical hypoattenuation noted which is nonspecific but consistent with chronic microvascular ischemic change. Demyelinating process and vasculitis less likely considerations. Old lacunar infarct involving the merino radiata of the dorsal right frontal lobe and right lentiform nucleus. Small peripheral hypodensity is demonstrated within the left cerebellar hemisphere posteriorly suggesting age-indeterminate infarct. Midline structures are nondisplaced. There is no convincing evidence of acute intracranial hemorrhage . The visualized paranasal sinuses and bilateral mastoid air cells are essentially clear. IMPRESSION: Small peripheral hypodensity is demonstrated within the left cerebellar hemisphere posteriorly suggesting age-indeterminate infarct. Chronic infarct favored. Consider MRI for further evaluation. 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 Probable chronic microvascular ischemic change and volume loss. The CT exam was performed using one or more of the following dose reduction techniques: Automated exposure control, adjustment of the mA and/or kV according to patient size, or use of iterative reconstruction technique. PROCEDURE INTERPRETED AT [facility] DEPARTMENT OF RADIOLOGY Final Report Signed by: Dr Harry Min
--- NOTE | 2016-11-16 07:15 | EKG Report ---
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
--- NOTE | 2016-11-16 07:25 | XRay Report ---
XR KUB Indication: Generalized abdominal pain Comparison: None Technique: Frontal views of the abdomen Findings: Nonweighted enteric tube projects over the distal stomach. Nonspecific bowel gas pattern. Much of the abdomen is essentially gasless. Moderate formed stool noted throughout the colon which may reflect constipation. Multiple surgical clips project over the pelvis. Suspected temperature probe projects over the pelvis as well. Visualized osseous and surrounding soft tissue structures demonstrate no acute abnormality. IMPRESSION: As above. PROCEDURE INTERPRETED AT [facility] DEPARTMENT OF RADIOLOGY Final Report Signed by: Dr Harry Min
[2016-11-16] MEDS: ALBUTEROL/IPRATROPIUM 3 ML NEB RESP TX SCH ×5 (07:28→23:54)
--- NOTE | 2016-11-16 08:19 | XRay Report ---
XR chest 1V portable Indication: SOB Comparison: Chest x-ray dated November 15, 2016 Technique: Frontal views of the chest Findings: Continued cardiomegaly status post sternotomy. Right-sided central venous catheter tip again projects over the atriocaval junction. Mildly progressed bilateral mid and lower lung pulmonary infiltrates and small bilateral pleural fluid. Visualized osseous and surrounding soft tissue structures appear grossly unchanged. Minimal subcutaneous emphysema within the left chest again noted. IMPRESSION: As above. PROCEDURE INTERPRETED AT [facility] DEPARTMENT OF RADIOLOGY Final Report Signed by: Dr Harry Min
[2016-11-16] MEDS: SODIUM CHLORIDE 0.9% 1,000 ML IV SCH (09:17)
[2016-11-16] MEDS: FERROUS SULFATE 325 MG TABLET PO SCH (09:34)
[2016-11-16] MEDS: MULTIVITAMIN (CENTRUM) TABLET PO SCH (09:34)
[2016-11-16] MEDS: methylPREDNISolone SOD SUC 40 MG/1 ML VIAL IV SCH ×2 (09:34→21:10)
[2016-11-16] MEDS: DILTIAZEM INJ 100 MG in SODIUM CHLORIDE 0.9% 100 ML IV SCH ×2 (09:34→11:24)
[2016-11-16] MEDS: DOCUSATE SODIUM 100 MG CAPSULE PO SCH (09:34)
[2016-11-16] MEDS: METOPROLOL TARTRATE 25 MG TABLET PO SCH ×3 (09:35→21:12)
[2016-11-16] MEDS: GABAPENTIN 300 MG CAPSULE PO SCH ×3 (09:35→21:11)
[2016-11-16] MEDS: ATORVASTATIN 20 MG TABLET PO SCH (09:35)
[2016-11-16] MEDS: PANTOPRAZOLE 40 MG TABLET PO SCH (09:36)
[2016-11-16] MEDS: CHLORHEXIDINE 0.12% ORAL RINSE 60 ML BOTTLE SWISH/SPIT SCH ×2 (09:36→21:12)
[2016-11-16] MEDS: FUROSEMIDE 40 MG/4 ML VIAL IV SCH (09:39)
--- NOTE | 2016-11-16 10:06 | Ultrasound Report ---
History: Leg pain Date: 11/16/2016 Study: Bilateral lower extremity color-flow venous Doppler study Comparison exam: No previous similar available Color Doppler, wave form analysis, and compression analysis of the deep veins of both lower extremities from the common femoral vein level through the popliteal vein level shows that the veins are readily compressible. There is no abnormal intraluminal material to suggest thrombus. Waveform analysis is unremarkable. Ultrasound images were captured and archived Impression: Normal bilateral lower extremity color flow venous Doppler study. No evidence of acute DVT PROCEDURE INTERPRETED AT [facility] DEPARTMENT OF RADIOLOGY Final Report Signed by: Dr. Edwina Glaser
[2016-11-16] MEDS ORDERED: DILTIAZEM 50 MG/10 ML VIAL IV ONE (11:09)
[2016-11-16] MEDS: ASPIRIN EC 81 MG TABLET PO SCH (11:22)
[2016-11-16] MEDS: amLODIPine 5 MG TABLET PO SCH (11:22)
[2016-11-16] MEDS: APIXABAN 2.5 MG TABLET PO SCH ×2 (11:22→21:12)
[2016-11-16] MEDS: AMIODARONE INJ 450 MG in DEXTROSE 5% 241 ML IV SCH (14:26)
[2016-11-16] MEDS: LOSARTAN 50 MG TABLET PO SCH (21:11)
[2016-11-16] MEDS: traZODone 50 MG TABLET PO SCH (21:11)
[2016-11-16] MEDS: oxyCODONE/ACETAMINOPHEN 5-325 MG TABLET PO PRN (23:22)
[2016-11-17] MEDS: ALBUTEROL/IPRATROPIUM 3 ML NEB RESP TX SCH ×5 (03:05→19:47)
[2016-11-17] MEDS: AMIODARONE INJ 450 MG in DEXTROSE 5% 241 ML IV SCH ×3 (03:56→23:35)
[2016-11-17] MEDS: SODIUM CHLORIDE 0.9% 1,000 ML IV SCH (03:58)
[2016-11-17 08:22] LABS: Basophils % 0.1 % (0.0-0.8); Immature Granulocytes % 0.7 %; Immature Granulocytes Absolute 0.09 #; Lymphocytes # 0.6 10*3/uL (1.4-4.0); Lymphocytes % 4.9 % (21.2-54.2); Mean Corpuscular HGB Conc 34.5 GM/DL (32-36); Mean Corpuscular Hemoglobin 32 PG (27-34); Mean Corpuscular Volume 92.4 FL (87-102); Mean Platelet Volume 11.9 FL (9.6-12.0); Monocytes # 0.8 10*3/uL (0.11-0.8); Monocytes % 6.3 % (1.7-12.7); Neutrophils # 10.7 10*3/uL (1.4-7.4); Platelet Count 178 T/CUMM (130-400); Red Blood Count 3.14 MC/CUMM (3.8-5.5); Red Cell Distribution Width 13.2 % (9.3-17.3); White Blood Count 12.1 T/CUMM (4-12)
--- NOTE | 2016-11-17 08:59 | Cardiothoracic Progress Note ---
Cardiothoracic Subjective Interval history: Patient looks and feels much better today. He seems normally responsive and awake and alert. He is moving his left side much better and appears to have pretty nearly normal strength on that side. Vital signs have been stable and he has remained in sinus rhythm since he converted yesterday evening. He was on Plavix prior to surgery because of his rhythm disturbance and would like to continue on that medication rather than Eliquis. I think that this is probably reasonable. We will try to get him out of bed today and see if he can begin to take p.o. food. Overall he seems better than yesterday and his progress satisfactory. Exam (Progress Note) - Constitutional Vitals: Period Temp Pulse Resp BP Sys/Lr Pulse Ox Last 24 Hr 97 F-98.4 F 62-128 10-32 85-167/48-96 91-100 Result/EKG - Labs CBC & BMP: 11/17/16 08:07 11/16/16 04:33 Labs: Laboratory Results - last 24 hr 11/16/16 11/16/16 11/16/16 12:20 18:05 23:13 WBC RBC Hgb Hct MCV MCH MCHC RDW Plt Count MPV Neut % (Auto) Lymph % (Auto) [place] % (Auto) Eos % (Auto) Baso % (Auto) Neut # (Auto) Lymph # (Auto) [place] # (Auto) Eos # (Auto) Baso # (Auto) Immature Gran % Nucleated RBC % Immature Gran # Nucleated RBCs # POC Glucose 172 H 164 H 155 H 11/17/16 11/17/16 05:09 08:07 WBC 12.1 H RBC 3.14 L Hgb 10.0 L Hct 29.0 L MCV 92.4 MCH 32 MCHC 34.5 RDW 13.2 Plt Count 178 MPV 11.9 Neut % (Auto) 88.0 H Lymph % (Auto) 4.9 L [place] % (Auto) 6.3 Eos % (Auto) 0.0 Baso % (Auto) 0.1 Neut # (Auto) 10.7 H Lymph # (Auto) 0.6 L [place] # (Auto) 0.8 Eos # (Auto) 0.0 Baso # (Auto) 0.0 Immature Gran % 0.7 Nucleated RBC % 0.0 Immature Gran # 0.09 Nucleated RBCs # 0.00 POC Glucose 182 H Quality Measures - VTE Contraindication to Pharmacological VTE Prophylaxis: High Risk of Bleeding Specialty Discharge - Follow Up or Referrals
[2016-11-17 09:10] LABS: Albumin 2.7 G/DL (3.4-5.0); Bilirubin,Total 1.1 MG/DL (0.2-1.0); Calcium 8.2 MG/DL (8.5-10.1); Total Protein 5.3 G/DL (6.4-8.3)
[2016-11-17] MEDS: ASPIRIN EC 81 MG TABLET PO SCH (09:20)
[2016-11-17] MEDS: FERROUS SULFATE 325 MG TABLET PO SCH (09:20)
[2016-11-17] MEDS: PANTOPRAZOLE 40 MG TABLET PO SCH (09:20)
[2016-11-17] MEDS: CLOPIDOGREL 75 MG TABLET PO SCH (09:21)
[2016-11-17] MEDS: methylPREDNISolone SOD SUC 40 MG/1 ML VIAL IV SCH ×2 (09:21→20:59)
[2016-11-17] MEDS: MULTIVITAMIN (CENTRUM) TABLET PO SCH (09:21)
[2016-11-17] MEDS: amLODIPine 5 MG TABLET PO SCH (09:21)
[2016-11-17] MEDS: DOCUSATE SODIUM 100 MG CAPSULE PO SCH (09:21)
[2016-11-17] MEDS: METOPROLOL TARTRATE 25 MG TABLET PO SCH ×2 (09:21→21:00)
[2016-11-17] MEDS: GABAPENTIN 300 MG CAPSULE PO SCH ×3 (09:21→21:00)
[2016-11-17] MEDS: ATORVASTATIN 20 MG TABLET PO SCH (09:21)
[2016-11-17] MEDS: POTASSIUM CHLORIDE 20 MEQ TABLET PO PRN (09:22)
[2016-11-17] MEDS: FUROSEMIDE 40 MG/4 ML VIAL IV SCH (09:22)
[2016-11-17] MEDS: CHLORHEXIDINE 0.12% ORAL RINSE 60 ML BOTTLE SWISH/SPIT SCH ×2 (09:23→21:01)
[2016-11-17] MEDS: DILTIAZEM INJ 100 MG in SODIUM CHLORIDE 0.9% 100 ML IV SCH (09:25)
[2016-11-17 11:48] LABS: Polychromasia Slight
[2016-11-17] MEDS: LOSARTAN 50 MG TABLET PO SCH (20:59)
[2016-11-17] MEDS: traZODone 50 MG TABLET PO SCH (21:00)
[2016-11-17] MEDS: ONDANSETRON 4 MG/2 ML VIAL IV PRN (21:05)
[2016-11-18] MEDS: ALBUTEROL/IPRATROPIUM 3 ML NEB RESP TX SCH ×7 (00:18→23:17)
[2016-11-18] MEDS: ZALEPLON 5 MG CAPSULE PO PRN (01:20)
[2016-11-18 03:37] LABS: Basophils % 0.1 % (0.0-0.8); Hematocrit 29.7 VOL% (42.0-52.0); Hemoglobin 10.1 GM/DL (14.0-18.0); Immature Granulocytes % 0.9 %; Immature Granulocytes Absolute 0.16 #; Lymphocytes # 0.7 10*3/uL (1.4-4.0); Lymphocytes % 4.2 % (21.2-54.2); Mean Corpuscular Hemoglobin 32 PG (27-34); Mean Corpuscular Volume 92.8 FL (87-102); Mean Platelet Volume 11.4 FL (9.6-12.0); Monocytes # 0.9 10*3/uL (0.11-0.8); Monocytes % 5.3 % (1.7-12.7); Neutrophils # 15.7 10*3/uL (1.4-7.4); Neutrophils % 89.5 % (38.7-73.9); Platelet Count 244 T/CUMM (130-400); Red Cell Distribution Width 13.2 % (9.3-17.3); White Blood Count 17.6 T/CUMM (4-12)
[2016-11-18] MEDS: SODIUM CHLORIDE 0.9% 1,000 ML IV SCH (03:52)
[2016-11-18 04:08] LABS: Alanine Aminotransferase 53 U/L (16-61); Albumin 2.7 G/DL (3.4-5.0); Alkaline Phosphatase 88 U/L (45-117); Aspartate Amino Transferase 42 U/L (0-37); Bilirubin,Indirect 0.7 MG/DL (0.0-1.0); Blood Urea Nitrogen 28 MG/DL (7-18); Calcium 8.2 MG/DL (8.5-10.1); Glucose 142 MG/DL (74-106); Magnesium 2.2 MG/DL (1.8-2.4); Osmolality,Calculated 280.8 MOS/KG (273-304); Potassium 4.2 MMOL/L (3.5-5.1); Sodium 137 MMOL/L (136-145); Total Protein 5.5 G/DL (6.4-8.3)
[2016-11-18 04:34] LABS: Band Neutrophils 1 % (0-10); Lymphocytes 6 % (20-55); Myelocytes 2 %; Segmented Neutrophils 89 % (50-85)
[2016-11-18 04:35] LABS: Platelet Estimate Normal; Total Cells Counted 100
--- NOTE | 2016-11-18 07:58 | Cardiothoracic Progress Note ---
Cardiothoracic Subjective Interval history: Patient looks and feels better today. He seems to be getting stronger on his left side we will try to get him out of bed and see if he can support himself and walk a few steps today. Vital signs have been stable and he has had some brief runs of atrial fib but these did not persist for long. He is on amiodarone and Norvasc. He is breathing comfortably and his wounds are okay. I believe we can transfer to telemetry this morning and began to increase his activity as he is able to tolerate. I am going to switch to oral amiodarone and discontinue his steroids and switch from metoprolol to Toprol. Overall his progress appears satisfactory. Exam (Progress Note) - Constitutional Vitals: Period Temp Pulse Resp BP Sys/Lr Pulse Ox Last 24 Hr 97.1 F-98.7 F 70-129 12-24 89-154/54-89 91-100 Result/EKG - Labs CBC & BMP: 11/18/16 03:24 11/18/16 03:24 Labs: Laboratory Results - last 24 hr 11/17/16 11/17/16 11/17/16 08:07 08:07 12:20 WBC 12.1 H RBC 3.14 L Hgb 10.0 L Hct 29.0 L MCV 92.4 MCH 32 MCHC 34.5 RDW 13.2 Plt Count 178 MPV 11.9 Neut % (Auto) 88.0 H Lymph % (Auto) 4.9 L [place] % (Auto) 6.3 Eos % (Auto) 0.0 Baso % (Auto) 0.1 Neut # (Auto) 10.7 H Lymph # (Auto) 0.6 L [place] # (Auto) 0.8 Eos # (Auto) 0.0 Baso # (Auto) 0.0 Total Counted Immature Gran % 0.7 Nucleated RBC % 0.0 Immature Gran # 0.09 Segmented Neutrophils Band Neutrophils Lymphocytes Monocytes Myelocytes Nucleated RBCs # 0.00 Platelet Estimate Polychromasia Slight Sodium 136 Potassium 4.0 Chloride 98 Carbon Dioxide 31 Anion Gap 11.0 BUN 28 H Creatinine 1.00 GFR Calculation 84 BUN/Creatinine Ratio 28.00 H Glucose 156 H POC Glucose 167 H Calculated Osmolality 280.0 Calcium 8.2 L Magnesium Total Bilirubin 1.10 H Direct Bilirubin Indirect Bilirubin AST 41 H ALT 60 Alkaline Phosphatase 81 Total Creatine Kinase CK-MB (CK-2) Troponin I Total Protein 5.3 L Albumin 2.7 L Globulin 2.6 Albumin/Globulin Ratio 1.0 L 11/17/16 11/17/16 11/18/16 18:36 23:36 03:24 WBC 17.6 H D RBC 3.20 L Hgb 10.1 L Hct 29.7 L MCV 92.8 MCH 32 MCHC 34.0 RDW 13.2 Plt Count 244 D MPV 11.4 Neut % (Auto) 89.5 H Lymph % (Auto) 4.2 L [place] % (Auto) 5.3 Eos % (Auto) 0.0 Baso % (Auto) 0.1 Neut # (Auto) 15.7 H Lymph # (Auto) 0.7 L [place] # (Auto) 0.9 H Eos # (Auto) 0.0 Baso # (Auto) 0.0 Total Counted 100 Immature Gran % 0.9 Nucleated RBC % 0.0 Immature Gran # 0.16 Segmented Neutrophils 89 H Band Neutrophils 1 Lymphocytes 6 L Monocytes 2 Myelocytes 2 Nucleated RBCs # 0.00 Platelet Estimate Normal Polychromasia Sodium Potassium Chloride Carbon Dioxide Anion Gap BUN Creatinine GFR Calculation BUN/Creatinine Ratio Glucose POC Glucose 173 H 173 H Calculated Osmolality Calcium Magnesium Total Bilirubin Direct Bilirubin Indirect Bilirubin AST ALT Alkaline Phosphatase Total Creatine Kinase CK-MB (CK-2) Troponin I Total Protein Albumin Globulin Albumin/Globulin Ratio 11/18/16 11/18/16 03:24 05:26 WBC RBC Hgb Hct MCV MCH MCHC RDW Plt Count MPV Neut % (Auto) Lymph % (Auto) [place] % (Auto) Eos % (Auto) Baso % (Auto) Neut # (Auto) Lymph # (Auto) [place] # (Auto) Eos # (Auto) Baso # (Auto) Total Counted Immature Gran % Nucleated RBC % Immature Gran # Segmented Neutrophils Band Neutrophils Lymphocytes Monocytes Myelocytes Nucleated RBCs # Platelet Estimate Polychromasia Sodium 137 Potassium 4.2 Chloride 99 Carbon Dioxide 30 Anion Gap 12.2 BUN 28 H Creatinine 1.00 GFR Calculation 83 BUN/Creatinine Ratio 28.00 H Glucose 142 H POC Glucose 138 H Calculated Osmolality 280.8 Calcium 8.2 L Magnesium 2.2 Total Bilirubin 1.00 Direct Bilirubin 0.30 H Indirect Bilirubin 0.7 AST 42 H ALT 53 Alkaline Phosphatase 88 Total Creatine Kinase 291 CK-MB (CK-2) 2.1 Troponin I 1.590 H D Total Protein 5.5 L Albumin 2.7 L Globulin 2.8 Albumin/Globulin Ratio 0.9 L Quality Measures - VTE Contraindication to Pharmacological VTE Prophylaxis: High Risk of Bleeding Specialty Discharge - Follow Up or Referrals
[2016-11-18] MEDS: GABAPENTIN 300 MG CAPSULE PO SCH ×3 (08:15→22:12)
[2016-11-18] MEDS: FERROUS SULFATE 325 MG TABLET PO SCH (08:15)
[2016-11-18] MEDS: ASPIRIN EC 81 MG TABLET PO SCH (08:15)
[2016-11-18] MEDS: PANTOPRAZOLE 40 MG TABLET PO SCH (08:16)
[2016-11-18] MEDS: DOCUSATE SODIUM 100 MG CAPSULE PO SCH (08:16)
[2016-11-18] MEDS: ATORVASTATIN 20 MG TABLET PO SCH (08:16)
[2016-11-18] MEDS: CLOPIDOGREL 75 MG TABLET PO SCH (08:16)
[2016-11-18] MEDS: AMIODARONE 200 MG TABLET PO SCH ×2 (08:16→22:12)
[2016-11-18] MEDS: MULTIVITAMIN (CENTRUM) TABLET PO SCH (08:16)
[2016-11-18] MEDS: FUROSEMIDE 40 MG/4 ML VIAL IV SCH (08:16)
[2016-11-18] MEDS: amLODIPine 5 MG TABLET PO SCH (08:16)
[2016-11-18] MEDS: POTASSIUM CHLORIDE 20 MEQ TABLET PO PRN (08:17)
[2016-11-18] MEDS: DILTIAZEM INJ 100 MG in SODIUM CHLORIDE 0.9% 100 ML IV SCH (08:47)
[2016-11-18] MEDS: CHLORHEXIDINE 0.12% ORAL RINSE 60 ML BOTTLE SWISH/SPIT SCH ×2 (08:47→22:12)
[2016-11-18] MEDS ORDERED: METOPROLOL SUCCINATE XL 100 MG TABLET PO SCH (09:00)
[2016-11-18] MEDS: AMIODARONE INJ 450 MG in DEXTROSE 5% 241 ML IV SCH (09:44)
--- NOTE | 2016-11-18 10:01 | XRay Report ---
XR chest 1V portable Indication: Shortness of breath Comparison: 16 November 2016 Findings: The heart and mediastinum are stable in size and configuration. Right internal jugular catheters unchanged in position. The pulmonary vascularity is increased with bilateral increased interstitial lung density similar to previous. No other lung infiltrates, effusions, pneumothorax or other abnormality is demonstrated. Impression: Findings suggest cardiac decompensation similar to previous. PROCEDURE INTERPRETED AT [facility] DEPARTMENT OF RADIOLOGY Final Report Signed by: Dr. Adrien Waller
[2016-11-18] MEDS: AMITRIPTYLINE 50 MG TABLET PO SCH (22:12)
[2016-11-18] MEDS: LOSARTAN 50 MG TABLET PO SCH (22:12)
[2016-11-19] MEDS: ALBUTEROL/IPRATROPIUM 3 ML NEB RESP TX SCH (02:49)
[2016-11-19 05:45] LABS: Eosinophils # 0.2 10*3/uL (0.0-0.87); Hemoglobin 9.8 GM/DL (14.0-18.0); Immature Granulocytes % 1.6 %; Immature Granulocytes Absolute 0.17 #; Lymphocytes # 1.7 10*3/uL (1.4-4.0); Lymphocytes % 15.6 % (21.2-54.2); Mean Corpuscular HGB Conc 33.8 GM/DL (32-36); Mean Corpuscular Hemoglobin 31 PG (27-34); Mean Corpuscular Volume 92.1 FL (87-102); Mean Platelet Volume 11.4 FL (9.6-12.0); Monocytes # 1.4 10*3/uL (0.11-0.8); Monocytes % 13.1 % (1.7-12.7); Neutrophils # 7.2 10*3/uL (1.4-7.4); Neutrophils % 67.7 % (38.7-73.9); Platelet Count 243 T/CUMM (130-400); Red Blood Count 3.15 MC/CUMM (3.8-5.5); Red Cell Distribution Width 13.6 % (9.3-17.3); White Blood Count 10.7 T/CUMM (4-12)
[2016-11-19 06:33] LABS: Alanine Aminotransferase 43 U/L (16-61); Albumin 2.3 G/DL (3.4-5.0); Alkaline Phosphatase 77 U/L (45-117); Aspartate Amino Transferase 36 U/L (0-37); Bilirubin,Indirect 0.7 MG/DL (0.0-1.0); Blood Urea Nitrogen 29 MG/DL (7-18); Calcium 7.9 MG/DL (8.5-10.1); Glucose 81 MG/DL (74-106); Magnesium 2.2 MG/DL (1.8-2.4); Osmolality,Calculated 281.5 MOS/KG (273-304); Potassium 4.1 MMOL/L (3.5-5.1); Sodium 139 MMOL/L (136-145); Total Protein 4.8 G/DL (6.4-8.3)
--- NOTE | 2016-11-19 08:59 | Cardiothoracic Progress Note ---
Cardiothoracic Subjective Interval history: Patient looks and feels some better. Feels that his strength is returning on the left side although he still needs some assistance walking. His heart rhythm has been stable this morning in normal sinus rhythm. He did have episodes of atrial fibrillation yesterday and last night for brief periods of time. He is on Plavix for anticoagulation. He is also on amiodarone but I have held his Toprol because he has had intermittent periods of bradycardia between episodes of atrial fibrillation. We will try to gradually increase his activity as he tolerates and hopefully his rhythm will settle down as he gets further from his surgery. Exam (Progress Note) - Constitutional Vitals: Period Temp Pulse Resp BP Sys/Lr Pulse Ox Last 24 Hr 96.3 F-98.6 F 72-120 16-20 101-125/56-85 91-99 Result/EKG - Labs CBC & BMP: 11/19/16 04:08 11/19/16 04:08 Labs: Laboratory Results - last 24 hr 11/18/16 11/18/16 11/19/16 11:40 15:17 01:06 WBC RBC Hgb Hct MCV MCH MCHC RDW Plt Count MPV Neut % (Auto) Lymph % (Auto) [place] % (Auto) Eos % (Auto) Baso % (Auto) Neut # (Auto) Lymph # (Auto) [place] # (Auto) Eos # (Auto) Baso # (Auto) Immature Gran % Nucleated RBC % Immature Gran # Nucleated RBCs # Sodium Potassium Chloride Carbon Dioxide Anion Gap BUN Creatinine GFR Calculation BUN/Creatinine Ratio Glucose POC Glucose 147 H 128 H 91 Calculated Osmolality Calcium Magnesium Total Bilirubin Direct Bilirubin Indirect Bilirubin AST ALT Alkaline Phosphatase Total Creatine Kinase CK-MB (CK-2) Troponin I Total Protein Albumin Globulin Albumin/Globulin Ratio 11/19/16 11/19/16 11/19/16 04:08 04:08 07:51 WBC 10.7 D RBC 3.15 L Hgb 9.8 L Hct 29.0 L MCV 92.1 MCH 31 MCHC 33.8 RDW 13.6 Plt Count 243 MPV 11.4 Neut % (Auto) 67.7 Lymph % (Auto) 15.6 L [place] % (Auto) 13.1 H Eos % (Auto) 2.0 Baso % (Auto) 0.0 Neut # (Auto) 7.2 Lymph # (Auto) 1.7 [place] # (Auto) 1.4 H Eos # (Auto) 0.2 Baso # (Auto) 0.0 Immature Gran % 1.6 Nucleated RBC % 0.0 Immature Gran # 0.17 Nucleated RBCs # 0.00 Sodium 139 Potassium 4.1 Chloride 101 Carbon Dioxide 30 Anion Gap 12.1 BUN 29 H Creatinine 1.10 GFR Calculation 74 BUN/Creatinine Ratio 26.00 H Glucose 81 POC Glucose 94 Calculated Osmolality 281.5 Calcium 7.9 L Magnesium 2.2 Total Bilirubin 1.00 Direct Bilirubin 0.30 H Indirect Bilirubin 0.7 AST 36 ALT 43 Alkaline Phosphatase 77 Total Creatine Kinase 224 D CK-MB (CK-2) 1.5 Troponin I 1.590 H Total Protein 4.8 L Albumin 2.3 L Globulin 2.5 Albumin/Globulin Ratio 0.9 L Quality Measures - VTE Contraindication to Pharmacological VTE Prophylaxis: High Risk of Bleeding Specialty Discharge - Follow Up or Referrals
[2016-11-19] MEDS: SODIUM CHLORIDE 0.9% 1,000 ML IV SCH (09:04)
[2016-11-19] MEDS: DILTIAZEM INJ 100 MG in SODIUM CHLORIDE 0.9% 100 ML IV SCH (09:04)
[2016-11-19] MEDS: AMIODARONE 200 MG TABLET PO SCH (09:26)
[2016-11-19] MEDS: GABAPENTIN 300 MG CAPSULE PO SCH ×3 (09:26→21:26)
[2016-11-19] MEDS: ATORVASTATIN 20 MG TABLET PO SCH (09:26)
[2016-11-19] MEDS: MULTIVITAMIN (CENTRUM) TABLET PO SCH (09:26)
[2016-11-19] MEDS: CLOPIDOGREL 75 MG TABLET PO SCH (09:26)
[2016-11-19] MEDS: FERROUS SULFATE 325 MG TABLET PO SCH (09:26)
[2016-11-19] MEDS: ASPIRIN EC 81 MG TABLET PO SCH (09:27)
[2016-11-19] MEDS: FUROSEMIDE 40 MG/4 ML VIAL IV SCH (09:27)
[2016-11-19] MEDS: amLODIPine 5 MG TABLET PO SCH (09:27)
[2016-11-19] MEDS: CHLORHEXIDINE 0.12% ORAL RINSE 60 ML BOTTLE SWISH/SPIT SCH ×2 (09:27→21:28)
[2016-11-19] MEDS: DOCUSATE SODIUM 100 MG CAPSULE PO SCH (09:27)
[2016-11-19] MEDS: PANTOPRAZOLE 40 MG TABLET PO SCH (09:27)
--- NOTE | 2016-11-19 10:03 | XRay Report ---
XR chest 1V Indication: Shortness of breath Comparison: 18 November 2016 Findings: The heart and mediastinum are stable in size and configuration. Right internal jugular catheters unchanged in position. The pulmonary vascularity is prominent with hazy pulmonary density in the lower lobes more prominent on the left. No lung infiltrates, effusions, pneumothorax or other abnormality is demonstrated. Impression: No significant changes. PROCEDURE INTERPRETED AT [facility] DEPARTMENT OF RADIOLOGY Final Report Signed by: Dr. Adrien Waller
[2016-11-19] MEDS ORDERED: LACTULOSE 20 GM/30 ML UDCUP PO PRN (13:05)
--- NOTE | 2016-11-19 14:13 | Cardiology Consult Note ---
<Grace Del Rio E - Last Filed: 11/19/16 13:52> Assessment and Plan - Time spent with patient Time spent with patient: Greater than 30 minutes (due to assessment, plan, and documentation) (1) Paroxysmal atrial fibrillation Status: Acute Assessment and plan: See plan of care listed below. Current Visit: Yes (2) S/P coronary artery bypass graft x 2 Status: Acute Assessment and plan: See plan of care listed below. Current Visit: Yes (3) Coronary artery disease Status: Chronic Assessment and plan: See plan of care listed below. Current Visit: Yes (4) Essential hypertension Status: Chronic Assessment and plan: See plan of care listed below. Current Visit: Yes (5) TIA (transient ischemic attack) Status: Acute Assessment and plan: See plan of care listed below. Current Visit: Yes (6) GERD (gastroesophageal reflux disease) Status: Chronic Assessment and plan: See plan of care listed below. 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 Tristan PCP: Dr. Dejan Shankar Mr. Amaral is a 86 year old male with a history of coronary artery disease, hypertension, TIA, and GERD. He has newly diagnosed paroxysmal atrial fibrillation. His status post coronary artery bypass grafting 2 with a left internal mammary graft to the anterior descending coronary artery saphenous vein graft to the right coronary artery on 11/12/[address] Christensen. Echocardiogram done on 10/26/2016 revealed EF 65%, grade 1 diastolic dysfunction , mild LVH, mild TR, PAP 26 mmHg. Mr. Amaral was admitted to [facility] on 11/05/2016 for complaints of substernal chest pain. Cardiac catheterization demonstrated critical stenosis in the anterior descending coronary artery on the right coronary artery. Mr. Amaral was referred to our facility for bypass surgery and was admitted on . He underwent CABG x2 on 11/12/16 and post operatively has had recurrent paroxysms of atrial fibrillation. He is felt to have had a TIA on 11/16/16 with left sided weakness which has been improving. He tells me that he has felt palpitations off and on for the past 30 years and has continued to have palpitations during the current hospitalization. He denies any recent chest pain , shortness of breath, dizziness, lightheadedness, or syncope; although he admits he has had palpitations with dizziness and lightheadedness in the past. His potassium is 4.1, magnesium 2.2. He has a creatinine of 1.1 with GFR 74. He has been anemic with current H&H 9.8 and 29. He has been on IV cardizem as well as metoprolol and has now been switched from metoprolol to toprol and is now on oral amiodarone. ASSESSMENT/PLAN: 1. PAROXYSMAL ATRIAL FIBRILLATION/FLUTTER - Currently on amiodarone 200mg po BID and is currently in atrial flutter per environmental monitoring technician. Will further discuss with Dr. Davis and await additional recommendations. 2. S/P CABG X2 - POD #7. Mr. Amaral underwent coronary artery bypass grafting x2 with a left internal mammary graft to the anterior descending coronary artery and a saphenous vein graft to the right coronary artery on 11/12/16. 3. CORONARY ARTERY DISEASE - Now s/p CABG x2. Continue ASA, Plavix, statin. 4. HYPERTENSION - Currently well controlled on current therapy. Will continue to monitor and adjust accordingly. 5. TIA - Physical therapy is working with pt. He is on Plavix 75mg orally daily. 6. GERD - Continue PPI. CC: Kevin Christensen MD - Home Medications and Allergies Home Medications: Home Medications Medication Instructions Recorded Confirmed Type Acetaminophen Tab [Tylenol Tab] 2 tablet PO Q4-6H PRN 11/09/16 11/09/16 History Aspirin [Ecotrin] 81 mg PO DAILY 11/09/16 11/13/16 History Atorvastatin [Lipitor] 20 mg PO DAILY 11/09/16 11/13/16 History Gabapentin 300 mg PO TID 11/09/16 11/13/16 History Hydrocodone/Acetaminophen 1 tablet PO Q6HR PRN 11/09/16 11/09/16 History [Hydrocodon-Acetaminoph 7.5-325] Losartan [Cozaar] 100 mg PO BEDTIME 11/09/16 11/09/16 History Metoprolol Tartrate 25 mg PO BID 11/09/16 11/13/16 History Multivitamin [Multivitamins] 1 tablespoon PO DAILY 11/09/16 11/09/16 History Pantoprazole Tab [Protonix Tab] 1 tablet PO DAILY 11/09/16 11/09/16 History amLODIPine [Norvasc] 5 mg PO DAILY 11/09/16 11/09/16 History traZODone [Desyrel] 100 mg PO DAILY 11/09/16 11/13/16 History Allergies/Adverse Reactions: Allergies Allergy/AdvReac Type Severity Reaction Status Date / Time codeine Allergy Mild Nausea Verified 11/09/16 14:26 latex Allergy Mild RASH Verified 11/09/16 14:26 Penicillins Allergy Mild RASH Verified 11/09/16 14:25 Sulfa (Sulfonamide Allergy Mild RASH Verified 11/09/16 14:26 Antibiotics) Review of systems: - Constitutional: Present: fatigue, left-sided weakness, As per HPI. Absent: anorexia, chills, daytime sleepiness, excessive sweating, fever(s), frequent falls, headache(s), increased appetite, lethargy, malaise, night sweats, stops breathing during sleep, weight gain, weight loss. - EENT Eyes: Present: As per HPI. Absent: blurry vision, diplopia, loss of vision Ears: Present: As per HPI. Absent: decreased hearing, ear discharge, ear pain Nose, mouth and throat: Present: As per HPI. Absent: dysphagia, epistaxis, headache(s), hoarseness, lip swelling, nasal congestion, neck mass, neck pain, sinus pressure, sore throat, throat swelling, tongue swelling, vertigo - Cardiovascular: Present: palpitations, as per HPI. Absent: chest pain with activity, dyspnea, dyspnea on exertion, edema, claudication, diaphoresis, radiating jaw, neck or arm pain, lightheadedness, orthopnea, PND - Respiratory: Present: as per HPI. Absent: dyspnea, dyspnea on exertion, cough , hemoptysis, wheezing, snoring, pain on inspiration - Gastrointestinal: Present: As per HPI. Absent: abdominal pain, bloating, change in bowel habits, constipation, diarrhea, heartburn, hematemesis, hematochezia, loose stools, melena, nausea, vomiting - Genitourinary: Present: As per HPI. Absent: difficulty urinating, dysuria, flank pain, hematuria, nocturia, urinary frequency, urinary incontinence - Musculoskeletal: Present: As per HPI. Absent: arthralgias, back pain, joint swelling, limited range of motion, muscle cramps, muscle weakness, myalgias - Neurological: Present: abnormal gait, As per HPI. Absent: abnormal speech, behavioral changes, confusion, convulsions, disequilibrium, dizziness, focal weakness, frequent falls, headache(s), memory loss, numbness, paresthesias, radicular pain, syncope, tremor(s) - Psychiatric: Present: As per HPI. Absent: anxiety, confusion, depression, panic attacks - Endocrine: Present: fatigue, As per HPI. Absent: cold intolerance, heat intolerance, polydipsia, polyphagia - Hematologic/Lymphatic: Present: easy bleeding, easy bruising, As per HPI. Absent: lymphadenopathy Medical,Surgical,& Family Hx - Medical History Cardio: History of: Cardiac Dysrhythmia, Hypertension, MD Neurology: History of: Cerebrovascular Accident (LAST YEAR), TIA Genitourinary: History of: Prostate Problems Gastrointestinal: Comment Only: GI Problems (CONSTIPATION) Musculoskeletal: History of: Back/Neck Problems Comment Only: Musculoskeletal Problems (BACK SURGERY) - Surgical History Cardiac Surgeries: Sugical HX of: Cardiac Catheterization Neurologic Surgeries: Patient denies: Neurologic Surgery HEENT Surgeries: Surgical HX of: Eye Surgery, Tonsilectomy & Adenoidectomy Abdominal Surgeries: Surgical HX of: Appendectomy Reproductive Surgeries: Surgical HX of;: Prostate Surgery - Family History Family History: Reports;: Family Cancer, Family Diabetes, Family Heart Disease, Family Hypertension, Family Stroke - Social History Smoking Status: Never smoker Physical Examination Vital Signs Temp Pulse Resp BP Pulse Ox 98.2 F 54 L 18 152/72 95 11/09/16 13:39 11/09/16 13:39 11/09/16 13:39 11/09/16 13:39 11/09/16 13:39 Exam: General appearance: Pleasant and cooperative. Overweight, no acute distress. - Head Head exam: Present: normal inspection, normocephalic, atraumatic. Absent: hematoma, laceration - Eye Eye exam: Present: EOMI. Absent: conjunctival injection, nystagmus, periorbital swelling, scleral icterus, laceration to eyelids Pupils: Present: PERRL. Absent: constricted, dilated, fixed, irregular, unequal - ENT ENT exam: Present: normal exam, normal external ear exam - Neck Neck exam: Present: normal inspection. Absent: lymphadenopathy, meningismus, tenderness, thyromegaly, carotid bruit - Respiratory Respiratory exam: Present: clear to auscultation bilaterally. Absent: accessory muscle use, chest wall tenderness, rales, rhonchi, wheezing. - Cardiovascular Cardiovascular exam: Present: regular rate and rhythm. Absent: gallop, JVD, rubs - GI/Abdominal GI/Abdominal exam: Present: normal bowel sounds, soft. Absent: distended, firm , guarding, hernia, mass, tenderness, rebound. - Extremities Exam Extremities exam: Present: normal inspection, normal capillary refill. Upper extremity pulses 2+. Lower extremity pulses 2+. Slight left sided weakness noted in upper and lower extremities. Absent: calf tenderness, edema -Musculoskeletal Exam Musculoskeletal: Present: No Fluid Collection, No Pain, Normal Range of Motion - Back Exam Back exam: Present: normal inspection. Absent: muscle spasm, vertebral tenderness - Neurological Exam Neurological exam: Present: alert, oriented X3, grossly intact without resting or essential tremor - Psychiatric Psychiatric exam: Present: flat affect - Skin Skin exam: Present: normal color, warm, dry, intact. Midsternal incision well approximated s erythema, edema, or drainage. Medial RLE incision well approximated s erythema, edema, mild drainage with scabbed areas noted. Absent : cyanosis, diaphoretic, rash, urticaria Result/EKG - Labs CBC & BMP: 11/19/16 04:08 11/19/16 04:08 Lab Results: I have reviewed the past 24 hour labs Labs: Laboratory Results - last 24 hr 11/18/16 11/19/16 11/19/16 15:17 01:06 04:08 WBC 10.7 D RBC 3.15 L Hgb 9.8 L Hct 29.0 L MCV 92.1 MCH 31 MCHC 33.8 RDW 13.6 Plt Count 243 MPV 11.4 Neut % (Auto) 67.7 Lymph % (Auto) 15.6 L [place] % (Auto) 13.1 H Eos % (Auto) 2.0 Baso % (Auto) 0.0 Neut # (Auto) 7.2 Lymph # (Auto) 1.7 [place] # (Auto) 1.4 H Eos # (Auto) 0.2 Baso # (Auto) 0.0 Immature Gran % 1.6 Nucleated RBC % 0.0 Immature Gran # 0.17 Nucleated RBCs # 0.00 Sodium Potassium Chloride Carbon Dioxide Anion Gap BUN Creatinine GFR Calculation BUN/Creatinine Ratio Glucose POC Glucose 128 H 91 Calculated Osmolality Calcium Magnesium Total Bilirubin Direct Bilirubin Indirect Bilirubin AST ALT Alkaline Phosphatase Total Creatine Kinase CK-MB (CK-2) Troponin I Total Protein Albumin Globulin Albumin/Globulin Ratio 11/19/16 11/19/16 11/19/16 04:08 07:51 11:25 WBC RBC Hgb Hct MCV MCH MCHC RDW Plt Count MPV Neut % (Auto) Lymph % (Auto) [place] % (Auto) Eos % (Auto) Baso % (Auto) Neut # (Auto) Lymph # (Auto) [place] # (Auto) Eos # (Auto) Baso # (Auto) Immature Gran % Nucleated RBC % Immature Gran # Nucleated RBCs # Sodium 139 Potassium 4.1 Chloride 101 Carbon Dioxide 30 Anion Gap 12.1 BUN 29 H Creatinine 1.10 GFR Calculation 74 BUN/Creatinine Ratio 26.00 H Glucose 81 POC Glucose 94 88 Calculated Osmolality 281.5 Calcium 7.9 L Magnesium 2.2 Total Bilirubin 1.00 Direct Bilirubin 0.30 H Indirect Bilirubin 0.7 AST 36 ALT 43 Alkaline Phosphatase 77 Total Creatine Kinase 224 D CK-MB (CK-2) 1.5 Troponin I 1.590 H Total Protein 4.8 L Albumin 2.3 L Globulin 2.5 Albumin/Globulin Ratio 0.9 L - EKG EKG results: interpreted by me, sinus rhythm Quality Measures - VTE Contraindication to Pharmacological VTE Prophylaxis: High Risk of Bleeding Specialty Discharge - Follow Up or Referrals <Mynor Davis - Last Filed: 11/19/16 15:17> History of Present Illness - Consult Narrative History of present illness: Cardiology addendum Patient seen and examined and chart reviewed. Called for postop atrial fib. Status post two-vessel CABG November 12, 2016 with LANG graft to LAD and vein graft to right coronary. Normal preop ejection fraction 65%. Chronic hypertension. Status post TIA November 16, 2016 Hyperlipidemia Chronic hypertension SUMMER suspected Telemetry shows atrial flutter ventricular rate around 150 Rhythm is tachycardic and slightly irregular but no murmur or rub Very decreased breath sounds with poor respiratory effort Sternal incision looks good Abdomen benign No leg edema Plan DC oral amiodarone Begin IV amiodarone Echo Doppler to reassess LV function and rule out effusion Carotid duplex Continue aspirin and Plavix Encourage nutrition Encourage spirometry Discussed with several family members with nurse Grace Del Rio NP present for the full discussion. If no effusion, will start Eliquis and probable cardioversion to follow CC: Kevin Christensen MD Physical Examination Vital Signs Temp Pulse Resp BP Pulse Ox 98.2 F 54 L 18 152/72 95 11/09/16 13:39 11/09/16 13:39 11/09/16 13:39 11/09/16 13:39 11/09/16 13:39 Result/EKG - Labs CBC & BMP: 11/19/16 04:08 11/19/16 04:08 Labs: Laboratory Results - last 24 hr 11/18/16 11/19/16 11/19/16 15:17 01:06 04:08 WBC 10.7 D RBC 3.15 L Hgb 9.8 L Hct 29.0 L MCV 92.1 MCH 31 MCHC 33.8 RDW 13.6 Plt Count 243 MPV 11.4 Neut % (Auto) 67.7 Lymph % (Auto) 15.6 L [place] % (Auto) 13.1 H Eos % (Auto) 2.0 Baso % (Auto) 0.0 Neut # (Auto) 7.2 Lymph # (Auto) 1.7 [place] # (Auto) 1.4 H Eos # (Auto) 0.2 Baso # (Auto) 0.0 Immature Gran % 1.6 Nucleated RBC % 0.0 Immature Gran # 0.17 Nucleated RBCs # 0.00 Sodium Potassium Chloride Carbon Dioxide Anion Gap BUN Creatinine GFR Calculation BUN/Creatinine Ratio Glucose POC Glucose 128 H 91 Calculated Osmolality Calcium Magnesium Total Bilirubin Direct Bilirubin Indirect Bilirubin AST ALT Alkaline Phosphatase Total Creatine Kinase CK-MB (CK-2) Troponin I Total Protein Albumin Globulin Albumin/Globulin Ratio 11/19/16 11/19/16 11/19/16 04:08 07:51 11:25 WBC RBC Hgb Hct MCV MCH MCHC RDW Plt Count MPV Neut % (Auto) Lymph % (Auto) [place] % (Auto) Eos % (Auto) Baso % (Auto) Neut # (Auto) Lymph # (Auto) [place] # (Auto) Eos # (Auto) Baso # (Auto) Immature Gran % Nucleated RBC % Immature Gran # Nucleated RBCs # Sodium 139 Potassium 4.1 Chloride 101 Carbon Dioxide 30 Anion Gap 12.1 BUN 29 H Creatinine 1.10 GFR Calculation 74 BUN/Creatinine Ratio 26.00 H Glucose 81 POC Glucose 94 88 Calculated Osmolality 281.5 Calcium 7.9 L Magnesium 2.2 Total Bilirubin 1.00 Direct Bilirubin 0.30 H Indirect Bilirubin 0.7 AST 36 ALT 43 Alkaline Phosphatase 77 Total Creatine Kinase 224 D CK-MB (CK-2) 1.5 Troponin I 1.590 H Total Protein 4.8 L Albumin 2.3 L Globulin 2.5 Albumin/Globulin Ratio 0.9 L
[2016-11-19] MEDS ORDERED: AMIODARONE INJ 150 MG in DEXTROSE 5% 100 ML IV ONE (14:49)
[2016-11-19] MEDS ORDERED: AMIODARONE INJ 450 MG in DEXTROSE 5% 241 ML IV SCH (15:00)
--- NOTE | 2016-11-19 17:31 | ECHO Report ---
Oziel Amaral Exam Date: 11/19/2016 15:22 Referring Physician: Technologist: luis eduardo Blanco ARDMS, RVT Age: 86 Ht (in): 70 Wt (lb): 201 Gender: M Exam Location: [facility] Echo Indications: Essential (primary) hypertension, Atrial fibrillation, CAD, Sleep apnea, GERD, TIA, S/P CABG x2 BP: 109 / 64 HR: 91 Rhythm: Sinus Technical Quality: IMPRESSIONS Septal hypokinesis,EF 55 %. The right ventricle is normal in size and function. The right atrium is mildly enlarged. The left atrium is mildly enlarged. Mildly thickened mitral valve. No mitral valve regurgitation. Aortic valve sclerosis. No aortic valve regurgitation. Mild tricuspid valve regurgitation. PAP40 MMhg. Pulmonic valve not well visualized. Trivial pericardial effusion. Normal ascending aorta dimension. MEASUREMENTS (Male / Female) Normal Values 2D ECHO LV Diastolic Diameter PLAX 3.3 cm 4.2 - 5.9 / 3.9 - 5.3 cm LV Systolic Diameter PLAX 1.7 cm LV Fractional Shortening PLAX 47.0 % IVS Diastolic Thickness 1.1 cm 0.6 - 1.0 / 0.6 - 0.9 cm LVPW Diastolic Thickness 1.1 cm 0.6 - 1.0 / 0.6 - 0.9 cm RV Internal Dim ED PLAX 2.8 cm Aortic Root Diameter 3.3 cm LA Systolic Diameter LX 2.8 cm 3.0 - 4.0 / 2.7 - 3.8 cm DOPPLER TR Peak Velocity 254.0 cm/s TR Peak Gradient 25.8 mmHg FINDINGS Left Ventricle Septal hypokinesis,EF 55 %. Right Ventricle The right ventricle is normal in size and function. Right Atrium The right atrium is mildly enlarged. Left Atrium The left atrium is mildly enlarged. Mitral Valve Mildly thickened mitral valve. No mitral valve regurgitation. Aortic Valve Aortic valve sclerosis. No aortic valve regurgitation. Tricuspid Valve Morphologically normal tricuspid valve. Mild tricuspid valve regurgitation.PAP40 MMhg. Pulmonic Valve Pulmonic valve not well visualized. Pericardium Trivial pericardial effusion. Aorta Normal ascending aorta dimension. Adolfo Davis (Electronically Signed) Final Date: 19 November 2016 17:29
--- NOTE | 2016-11-19 19:59 | Ultrasound Report ---
Exam:US carotid duplex BI Date:11/19/2016 2:51 PM Indication: TIA Technique: Grayscale, color flow Doppler analysis, and spectral analysis imaging was performed with images stored and captured. Findings: There is moderate partially calcified plaque in the left carotid bulb with minimal partially calcified plaque in the right carotid bulb. There is 16-49% diameter reduction stenosis of either internal carotid artery. There is antegrade flow in either vertebral artery. Impression: 16-49% diameter reduction stenosis of either internal carotid artery. Right Side Flow velocities centimeters per second Common carotid artery: 64 Proximal ICA:53.7 Distal ICA:84.5 External carotid artery:127.9 Vertebral artery:37.9 ICA/CCA ratio:1.3 Measurements in millimeters Distal ICA: 6.4 Left SIde Flow velocities centimeters per second Common carotid artery 86 Proximal ICA:100.0 Distal ICA:109.7 External carotid artery:104.8 Vertebral artery:40.5 ICA/CCA ratio:1.3 Measurements in millimeters Distal ICA: 5.7 Today studies were performed utilizing indirect NASCET criteria PROCEDURE INTERPRETED AT [facility] DEPARTMENT OF RADIOLOGY Final Report Signed by: Dr. Edwina Glaser
[2016-11-19] MEDS: AMIODARONE INJ 450 MG in DEXTROSE 5% 241 ML IV SCH (21:26)
[2016-11-19] MEDS: AMITRIPTYLINE 50 MG TABLET PO SCH (21:26)
[2016-11-19] MEDS: ASCORBIC ACID 500 MG TABLET PO SCH (21:26)
[2016-11-19] MEDS: LOSARTAN 50 MG TABLET PO SCH (21:26)
[2016-11-20] MEDS: SODIUM CHLORIDE 0.9% 1,000 ML IV SCH (04:10)
[2016-11-20 06:08] LABS: Basophils % 0.1 % (0.0-0.8); Eosinophils # 0.5 10*3/uL (0.0-0.87); Eosinophils % 4.4 % (0.00-10.9); Hematocrit 32.3 VOL% (42.0-52.0); Hemoglobin 10.9 GM/DL (14.0-18.0); Immature Granulocytes % 2.5 %; Immature Granulocytes Absolute 0.28 #; Lymphocytes # 1.9 10*3/uL (1.4-4.0); Lymphocytes % 17.6 % (21.2-54.2); Mean Corpuscular HGB Conc 33.7 GM/DL (32-36); Mean Corpuscular Hemoglobin 31 PG (27-34); Mean Corpuscular Volume 93.1 FL (87-102); Monocytes # 1.2 10*3/uL (0.11-0.8); Monocytes % 10.5 % (1.7-12.7); Neutrophils # 7.1 10*3/uL (1.4-7.4); Neutrophils % 64.9 % (38.7-73.9); Platelet Count 287 T/CUMM (130-400); Red Blood Count 3.47 MC/CUMM (3.8-5.5); Red Cell Distribution Width 13.2 % (9.3-17.3)
[2016-11-20 06:48] LABS: Calcium 8.1 MG/DL (8.5-10.1); Potassium 3.9 MMOL/L (3.5-5.1)
[2016-11-20 06:59] LABS: Free T4 (Free Thyroxine) 1.48 NG/DL (0.76-1.46); Thyroid Stimulating Hormone 1.19 uIU/ml (0.358-3.74)
--- NOTE | 2016-11-20 07:39 | Cardiology Progress Note ---
Cardiology - PN: Subj Interval history: Cardiology note Cardiology note 86-year-old man, status post two-vessel CABG November 12, 2016 with LANG graft to LAD and vein graft to right coronary. Normal preop EF. Patient was in atrial flutter yesterday and converted chemically with IV amiodarone. Telemetry shows sinus rhythm in the 80s. Blood pressure 130/80 O2 sat 94% on 2 L Appetite remains fair at best. Patient has been slow to ambulate. Regular rhythm no murmur or rub Decreased breath sounds few rhonchi in the right base Abdomen benign Leg incision looks good Echo Doppler showed ejection fraction 55% with septal hypokinesis, mildly dilated left atrium, aortic valve sclerosis, normal RV function, mild TR PA pressure 40 and trivial effusion Impression Status post two-vessel CABG November 12, 2016 LANG graft to LAD and vein graft to right coronary Postop atrial fib/flutter converted with IV amiodarone- Chronic hypertension status post TIA November 16, 2016 SUMMER suspected Hyperlipidemia Plan Continue IV amiodarone another 24 hours Ambulate and monitor Encourage nutrition Carotid duplex pending Exam (Progress Note) - Constitutional Vitals: Period Temp Pulse Resp BP Sys/Lr Pulse Ox Last 24 Hr 97.2 F-98.7 F 74-118 16-20 105-138/56-78 90-100 Result/EKG - Labs CBC & BMP: 11/20/16 05:33 11/20/16 05:33 Labs: Laboratory Results - last 24 hr 11/19/16 11/19/16 11/19/16 07:51 11:25 17:54 WBC RBC Hgb Hct MCV MCH MCHC RDW Plt Count MPV Neut % (Auto) Lymph % (Auto) [place] % (Auto) Eos % (Auto) Baso % (Auto) Neut # (Auto) Lymph # (Auto) [place] # (Auto) Eos # (Auto) Baso # (Auto) Immature Gran % Nucleated RBC % Immature Gran # Nucleated RBCs # Sodium Potassium Chloride Carbon Dioxide Anion Gap BUN Creatinine GFR Calculation BUN/Creatinine Ratio Glucose POC Glucose 94 88 126 H Calculated Osmolality Calcium Magnesium Free T4 TSH 3rd Generation 11/20/16 11/20/16 11/20/16 00:14 05:33 05:33 WBC 11.0 RBC 3.47 L Hgb 10.9 L Hct 32.3 L MCV 93.1 MCH 31 MCHC 33.7 RDW 13.2 Plt Count 287 MPV 11.0 Neut % (Auto) 64.9 Lymph % (Auto) 17.6 L [place] % (Auto) 10.5 Eos % (Auto) 4.4 Baso % (Auto) 0.1 Neut # (Auto) 7.1 Lymph # (Auto) 1.9 [place] # (Auto) 1.2 H Eos # (Auto) 0.5 Baso # (Auto) 0.0 Immature Gran % 2.5 Nucleated RBC % 0.0 Immature Gran # 0.28 Nucleated RBCs # 0.00 Sodium Potassium Chloride Carbon Dioxide Anion Gap BUN Creatinine GFR Calculation BUN/Creatinine Ratio Glucose POC Glucose 96 Calculated Osmolality Calcium Magnesium Free T4 1.48 H TSH 3rd Generation 1.190 11/20/16 11/20/16 05:33 05:44 WBC RBC Hgb Hct MCV MCH MCHC RDW Plt Count MPV Neut % (Auto) Lymph % (Auto) [place] % (Auto) Eos % (Auto) Baso % (Auto) Neut # (Auto) Lymph # (Auto) [place] # (Auto) Eos # (Auto) Baso # (Auto) Immature Gran % Nucleated RBC % Immature Gran # Nucleated RBCs # Sodium 136 Potassium 3.9 Chloride 100 Carbon Dioxide 30 Anion Gap 9.9 BUN 26 H Creatinine 1.00 GFR Calculation 82 BUN/Creatinine Ratio 26.00 H Glucose 92 POC Glucose 106 Calculated Osmolality 276.0 Calcium 8.1 L Magnesium 2.0 Free T4 TSH 3rd Generation Quality Measures - VTE Contraindication to Pharmacological VTE Prophylaxis: High Risk of Bleeding Specialty Discharge - Follow Up or Referrals
--- NOTE | 2016-11-20 08:51 | Cardiothoracic Progress Note ---
Cardiothoracic Subjective Interval history: Appreciate Dr. Davis's help. He converted to normal sinus rhythm relatively soon after he was changed to IV amiodarone. He has maintained this rhythm for about 12 hours now. His main complaint now is constipation and we will try to help him with this this morning. Otherwise he has been stable with stable vital signs and breathing comfortably. We will try to gradually increase his activity as he tolerates it. Exam (Progress Note) - Constitutional Vitals: Period Temp Pulse Resp BP Sys/Lr Pulse Ox Last 24 Hr 97.2 F-98.7 F 74-118 16-20 106-138/59-78 90-100 Result/EKG - Labs CBC & BMP: 11/20/16 05:33 11/20/16 05:33 Labs: Laboratory Results - last 24 hr 11/19/16 11/19/16 11/20/16 11:25 17:54 00:14 WBC RBC Hgb Hct MCV MCH MCHC RDW Plt Count MPV Neut % (Auto) Lymph % (Auto) [place] % (Auto) Eos % (Auto) Baso % (Auto) Neut # (Auto) Lymph # (Auto) [place] # (Auto) Eos # (Auto) Baso # (Auto) Immature Gran % Nucleated RBC % Immature Gran # Nucleated RBCs # Sodium Potassium Chloride Carbon Dioxide Anion Gap BUN Creatinine GFR Calculation BUN/Creatinine Ratio Glucose POC Glucose 88 126 H 96 Calculated Osmolality Calcium Magnesium Free T4 TSH 3rd Generation 11/20/16 11/20/16 11/20/16 05:33 05:33 05:33 WBC 11.0 RBC 3.47 L Hgb 10.9 L Hct 32.3 L MCV 93.1 MCH 31 MCHC 33.7 RDW 13.2 Plt Count 287 MPV 11.0 Neut % (Auto) 64.9 Lymph % (Auto) 17.6 L [place] % (Auto) 10.5 Eos % (Auto) 4.4 Baso % (Auto) 0.1 Neut # (Auto) 7.1 Lymph # (Auto) 1.9 [place] # (Auto) 1.2 H Eos # (Auto) 0.5 Baso # (Auto) 0.0 Immature Gran % 2.5 Nucleated RBC % 0.0 Immature Gran # 0.28 Nucleated RBCs # 0.00 Sodium 136 Potassium 3.9 Chloride 100 Carbon Dioxide 30 Anion Gap 9.9 BUN 26 H Creatinine 1.00 GFR Calculation 82 BUN/Creatinine Ratio 26.00 H Glucose 92 POC Glucose Calculated Osmolality 276.0 Calcium 8.1 L Magnesium 2.0 Free T4 1.48 H TSH 3rd Generation 1.190 11/20/16 11/20/16 05:44 07:55 WBC RBC Hgb Hct MCV MCH MCHC RDW Plt Count MPV Neut % (Auto) Lymph % (Auto) [place] % (Auto) Eos % (Auto) Baso % (Auto) Neut # (Auto) Lymph # (Auto) [place] # (Auto) Eos # (Auto) Baso # (Auto) Immature Gran % Nucleated RBC % Immature Gran # Nucleated RBCs # Sodium Potassium Chloride Carbon Dioxide Anion Gap BUN Creatinine GFR Calculation BUN/Creatinine Ratio Glucose POC Glucose 106 112 H Calculated Osmolality Calcium Magnesium Free T4 TSH 3rd Generation Quality Measures - VTE Contraindication to Pharmacological VTE Prophylaxis: High Risk of Bleeding Specialty Discharge - Follow Up or Referrals
[2016-11-20] MEDS: FUROSEMIDE 40 MG/4 ML VIAL IV SCH (08:57)
[2016-11-20] MEDS: ASPIRIN EC 81 MG TABLET PO SCH (08:58)
[2016-11-20] MEDS: ASCORBIC ACID 500 MG TABLET PO SCH ×2 (08:58→21:00)
[2016-11-20] MEDS: MULTIVITAMIN (CENTRUM) TABLET PO SCH (08:58)
[2016-11-20] MEDS: FERROUS SULFATE 325 MG TABLET PO SCH (08:58)
[2016-11-20] MEDS: amLODIPine 5 MG TABLET PO SCH (08:58)
[2016-11-20] MEDS: GABAPENTIN 300 MG CAPSULE PO SCH ×3 (08:59→21:00)
[2016-11-20] MEDS: DOCUSATE SODIUM 100 MG CAPSULE PO SCH (08:59)
[2016-11-20] MEDS: ATORVASTATIN 20 MG TABLET PO SCH (08:59)
[2016-11-20] MEDS: PANTOPRAZOLE 40 MG TABLET PO SCH (08:59)
[2016-11-20] MEDS: CLOPIDOGREL 75 MG TABLET PO SCH (08:59)
[2016-11-20] MEDS: CHLORHEXIDINE 0.12% ORAL RINSE 60 ML BOTTLE SWISH/SPIT SCH ×2 (08:59→21:03)
[2016-11-20] MEDS: DILTIAZEM INJ 100 MG in SODIUM CHLORIDE 0.9% 100 ML IV SCH (09:05)
[2016-11-20] MEDS ORDERED: SODIUM PHOSPHATE ENEMA 133 ML BOTTLE RECTAL PRN (12:12)
[2016-11-20] MEDS: AMIODARONE INJ 450 MG in DEXTROSE 5% 241 ML IV SCH (13:04)
[2016-11-20] MEDS: AMITRIPTYLINE 50 MG TABLET PO SCH (21:00)
[2016-11-20] MEDS: LOSARTAN 50 MG TABLET PO SCH (21:00)
[2016-11-21] MEDS: AMIODARONE INJ 450 MG in DEXTROSE 5% 241 ML IV SCH ×2 (03:34→08:29)
[2016-11-21] MEDS: SODIUM CHLORIDE 0.9% 1,000 ML IV SCH (04:33)
--- NOTE | 2016-11-21 08:04 | Cardiology Progress Note ---
Cardiology - PN: Subj Interval history: Cardiology note 86-year-old man status post two-vessel CABG November 12 with LANG graft to LAD and vein graft to right coronary. Normal preop EF. Postop atrial fib/flutter converted with IV amiodarone. More awake and alert today. Nurse reports appetite improving. 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 amiodarone today Encourage nutrition Will need swing bed Exam (Progress Note) - Constitutional Vitals: Period Temp Pulse Resp BP Sys/Lr Pulse Ox Last 24 Hr 97.4 F-99.3 F 93-99 16-20 95-130/48-67 91-99 Result/EKG - Labs CBC & BMP: 11/20/16 05:33 11/20/16 05:33 Labs: Laboratory Results - last 24 hr 11/20/16 11/20/16 11/21/16 11:02 19:30 01:38 POC Glucose 137 H 127 H 132 H 11/21/16 06:00 POC Glucose 137 H Quality Measures - VTE Contraindication to Pharmacological VTE Prophylaxis: High Risk of Bleeding Specialty Discharge - Follow Up or Referrals
[2016-11-21] MEDS: ASCORBIC ACID 500 MG TABLET PO SCH ×2 (08:30→21:18)
[2016-11-21] MEDS: amLODIPine 5 MG TABLET PO SCH (08:30)
[2016-11-21] MEDS: DOCUSATE SODIUM 100 MG CAPSULE PO SCH (08:31)
[2016-11-21] MEDS: ASPIRIN EC 81 MG TABLET PO SCH (08:31)
[2016-11-21] MEDS: CLOPIDOGREL 75 MG TABLET PO SCH (08:31)
[2016-11-21] MEDS: MULTIVITAMIN (CENTRUM) TABLET PO SCH (08:31)
[2016-11-21] MEDS: AMIODARONE 200 MG TABLET PO SCH (08:31)
[2016-11-21] MEDS: PANTOPRAZOLE 40 MG TABLET PO SCH (08:31)
[2016-11-21] MEDS: DILTIAZEM INJ 100 MG in SODIUM CHLORIDE 0.9% 100 ML IV SCH (08:31)
[2016-11-21] MEDS: GABAPENTIN 300 MG CAPSULE PO SCH ×3 (08:31→21:19)
[2016-11-21] MEDS: FERROUS SULFATE 325 MG TABLET PO SCH (08:31)
[2016-11-21] MEDS: CHLORHEXIDINE 0.12% ORAL RINSE 60 ML BOTTLE SWISH/SPIT SCH ×2 (08:32→21:20)
[2016-11-21] MEDS: FUROSEMIDE 40 MG/4 ML VIAL IV SCH (08:32)
[2016-11-21] MEDS: ATORVASTATIN 20 MG TABLET PO SCH (08:33)
--- NOTE | 2016-11-21 09:12 | Cardiothoracic Progress Note ---
Cardiothoracic Subjective Interval history: Patient is feeling some better today. He did have a bowel movement after laxatives and an enema yesterday. Vital signs have been stable and he is breathing comfortably. He is gradually increasing his walking abilities but is still fairly weak. I suspect that he will need swing bed therapy for perhaps a couple of weeks after discharge. We will make an effort to arrange for this. Exam (Progress Note) - Constitutional Vitals: Period Temp Pulse Resp BP Sys/Lr Pulse Ox Last 24 Hr 97.4 F-99.3 F 93-99 16-20 95-130/48-67 91-99 Result/EKG - Labs CBC & BMP: 11/20/16 05:33 11/20/16 05:33 Labs: Laboratory Results - last 24 hr 11/20/16 11/20/16 11/21/16 11:02 19:30 01:38 POC Glucose 137 H 127 H 132 H 11/21/16 06:00 POC Glucose 137 H Quality Measures - VTE Contraindication to Pharmacological VTE Prophylaxis: High Risk of Bleeding Specialty Discharge - Follow Up or Referrals
[2016-11-21] MEDS: AMITRIPTYLINE 50 MG TABLET PO SCH (21:19)
[2016-11-21] MEDS: LOSARTAN 50 MG TABLET PO SCH (21:19)
[2016-11-22 04:48] LABS: Basophils % 0.1 % (0.0-0.8); Eosinophils # 0.4 10*3/uL (0.0-0.87); Eosinophils % 3.5 % (0.00-10.9); Hematocrit 27.6 VOL% (42.0-52.0); Hemoglobin 9.6 GM/DL (14.0-18.0); Immature Granulocytes % 1.4 %; Immature Granulocytes Absolute 0.17 #; Lymphocytes # 1.5 10*3/uL (1.4-4.0); Lymphocytes % 12.7 % (21.2-54.2); Mean Corpuscular HGB Conc 34.8 GM/DL (32-36); Mean Corpuscular Hemoglobin 32 PG (27-34); Mean Corpuscular Volume 90.5 FL (87-102); Mean Platelet Volume 10.4 FL (9.6-12.0); Monocytes # 1.1 10*3/uL (0.11-0.8); Monocytes % 9.2 % (1.7-12.7); Neutrophils # 8.8 10*3/uL (1.4-7.4); Neutrophils % 73.1 % (38.7-73.9); Platelet Count 282 T/CUMM (130-400); Red Blood Count 3.05 MC/CUMM (3.8-5.5); Red Cell Distribution Width 13.1 % (9.3-17.3)
[2016-11-22] MEDS: SODIUM CHLORIDE 0.9% 1,000 ML IV SCH (05:10)
[2016-11-22 05:21] LABS: Calcium 7.7 MG/DL (8.5-10.1); Magnesium 2.1 MG/DL (1.8-2.4); Potassium 3.4 MMOL/L (3.5-5.1)
--- NOTE | 2016-11-22 08:09 | Cardiology Progress Note ---
Cardiology - PN: Subj Interval history: Cardiology note 86-year-old man status post two-vessel bypass November 12 with LANG graft to LAD and vein graft to right coronary. Normal preop EF. Postop atrial fib flutter converted with IV amiodarone. Looks better today. Appetite improving. Telemetry shows steady sinus rhythm in the 80s Blood pressure 112/76 O2 sat 97% on 2 L Regular rhythm no murmur Decreased breath sounds but fairly clear Vein graft harvest site looks good Impression Status post two-vessel CABG November 12, 2016 LANG graft to LAD and vein graft to right coronary Postop atrial fib/flutter converted with IV amiodarone Hypertension Hyperlipidemia Status post TIA November 16, 2016 SUMMER suspected Carotid duplex hemodynamically insignificant disease Plan Encourage nutrition Spirometry Awaiting swing bed P.o. amiodarone Exam (Progress Note) - Constitutional Vitals: Period Temp Pulse Resp BP Sys/Lr Pulse Ox Last 24 Hr 98.4 F-99.1 F 96-106 16-18 87-118/46-65 92-100 Result/EKG - Labs CBC & BMP: 11/22/16 04:08 11/22/16 04:08 Labs: Laboratory Results - last 24 hr 11/21/16 11/21/16 11/22/16 14:12 19:10 04:08 WBC 12.0 RBC 3.05 L Hgb 9.6 L Hct 27.6 L MCV 90.5 MCH 32 MCHC 34.8 RDW 13.1 Plt Count 282 MPV 10.4 Neut % (Auto) 73.1 Lymph % (Auto) 12.7 L [place] % (Auto) 9.2 Eos % (Auto) 3.5 Baso % (Auto) 0.1 Neut # (Auto) 8.8 H Lymph # (Auto) 1.5 [place] # (Auto) 1.1 H Eos # (Auto) 0.4 Baso # (Auto) 0.0 Immature Gran % 1.4 Nucleated RBC % 0.0 Immature Gran # 0.17 Nucleated RBCs # 0.00 Sodium Potassium Chloride Carbon Dioxide Anion Gap BUN Creatinine GFR Calculation BUN/Creatinine Ratio Glucose POC Glucose 209 H 156 H Calculated Osmolality Calcium Magnesium 11/22/16 04:08 WBC RBC Hgb Hct MCV MCH MCHC RDW Plt Count MPV Neut % (Auto) Lymph % (Auto) [place] % (Auto) Eos % (Auto) Baso % (Auto) Neut # (Auto) Lymph # (Auto) [place] # (Auto) Eos # (Auto) Baso # (Auto) Immature Gran % Nucleated RBC % Immature Gran # Nucleated RBCs # Sodium 136 Potassium 3.4 L Chloride 99 Carbon Dioxide 30 Anion Gap 10.4 BUN 27 H Creatinine 1.10 GFR Calculation 73 BUN/Creatinine Ratio 24.00 H Glucose 110 H POC Glucose Calculated Osmolality 277.0 Calcium 7.7 L Magnesium 2.1 Quality Measures - VTE Contraindication to Pharmacological VTE Prophylaxis: High Risk of Bleeding Specialty Discharge - Follow Up or Referrals
[2016-11-22] MEDS: ASPIRIN EC 81 MG TABLET PO SCH (08:16)
[2016-11-22] MEDS: amLODIPine 5 MG TABLET PO SCH (08:16)
[2016-11-22] MEDS: FERROUS SULFATE 325 MG TABLET PO SCH (08:16)
[2016-11-22] MEDS: MULTIVITAMIN (CENTRUM) TABLET PO SCH (08:16)
[2016-11-22] MEDS: ASCORBIC ACID 500 MG TABLET PO SCH ×2 (08:16→20:46)
[2016-11-22] MEDS: ATORVASTATIN 20 MG TABLET PO SCH (08:16)
[2016-11-22] MEDS: GABAPENTIN 300 MG CAPSULE PO SCH ×3 (08:16→20:46)
[2016-11-22] MEDS: DOCUSATE SODIUM 100 MG CAPSULE PO SCH (08:17)
[2016-11-22] MEDS: AMIODARONE 200 MG TABLET PO SCH (08:17)
[2016-11-22] MEDS: CLOPIDOGREL 75 MG TABLET PO SCH (08:17)
[2016-11-22] MEDS: FUROSEMIDE 40 MG/4 ML VIAL IV SCH (08:17)
[2016-11-22] MEDS: PANTOPRAZOLE 40 MG TABLET PO SCH (08:17)
[2016-11-22] MEDS: CHLORHEXIDINE 0.12% ORAL RINSE 60 ML BOTTLE SWISH/SPIT SCH ×2 (08:18→20:46)
--- NOTE | 2016-11-22 09:07 | Cardiothoracic Progress Note ---
Cardiothoracic Subjective Interval history: Patient looks and feels a little bit better today. He is breathing comfortably and his vital signs have been stable but he still is very weak. He is able to get up with assistance and is asking to take a shower today. His appetite is getting just a little better. I would prefer to watch him here over the weekend because he is just beginning to gain some of his strength back but hopefully he will be ready for swing bed placement first of next week. Overall his progress is satisfactory. Exam (Progress Note) - Constitutional Vitals: Period Temp Pulse Resp BP Sys/Lr Pulse Ox Last 24 Hr 98.4 F-99.1 F 96-106 16-18 87-118/46-65 92-100 Result/EKG - Labs CBC & BMP: 11/22/16 04:08 11/22/16 04:08 Labs: Laboratory Results - last 24 hr 11/21/16 11/21/16 11/22/16 14:12 19:10 04:08 WBC 12.0 RBC 3.05 L Hgb 9.6 L Hct 27.6 L MCV 90.5 MCH 32 MCHC 34.8 RDW 13.1 Plt Count 282 MPV 10.4 Neut % (Auto) 73.1 Lymph % (Auto) 12.7 L [place] % (Auto) 9.2 Eos % (Auto) 3.5 Baso % (Auto) 0.1 Neut # (Auto) 8.8 H Lymph # (Auto) 1.5 [place] # (Auto) 1.1 H Eos # (Auto) 0.4 Baso # (Auto) 0.0 Immature Gran % 1.4 Nucleated RBC % 0.0 Immature Gran # 0.17 Nucleated RBCs # 0.00 Sodium Potassium Chloride Carbon Dioxide Anion Gap BUN Creatinine GFR Calculation BUN/Creatinine Ratio Glucose POC Glucose 209 H 156 H Calculated Osmolality Calcium Magnesium 11/22/16 04:08 WBC RBC Hgb Hct MCV MCH MCHC RDW Plt Count MPV Neut % (Auto) Lymph % (Auto) [place] % (Auto) Eos % (Auto) Baso % (Auto) Neut # (Auto) Lymph # (Auto) [place] # (Auto) Eos # (Auto) Baso # (Auto) Immature Gran % Nucleated RBC % Immature Gran # Nucleated RBCs # Sodium 136 Potassium 3.4 L Chloride 99 Carbon Dioxide 30 Anion Gap 10.4 BUN 27 H Creatinine 1.10 GFR Calculation 73 BUN/Creatinine Ratio 24.00 H Glucose 110 H POC Glucose Calculated Osmolality 277.0 Calcium 7.7 L Magnesium 2.1 Quality Measures - VTE Contraindication to Pharmacological VTE Prophylaxis: High Risk of Bleeding Specialty Discharge - Follow Up or Referrals
[2016-11-22] MEDS: LOSARTAN 50 MG TABLET PO SCH (20:45)
[2016-11-22] MEDS: AMITRIPTYLINE 50 MG TABLET PO SCH (20:46)
[2016-11-23 05:57] LABS: Basophils % 0.1 % (0.0-0.8); Eosinophils # 0.4 10*3/uL (0.0-0.87); Eosinophils % 3.7 % (0.00-10.9); Hematocrit 27.4 VOL% (42.0-52.0); Hemoglobin 9.6 GM/DL (14.0-18.0); Immature Granulocytes % 1.6 %; Immature Granulocytes Absolute 0.17 #; Lymphocytes # 1.5 10*3/uL (1.4-4.0); Lymphocytes % 13.7 % (21.2-54.2); Mean Corpuscular Hemoglobin 32 PG (27-34); Mean Platelet Volume 10.2 FL (9.6-12.0); Monocytes # 1.2 10*3/uL (0.11-0.8); Monocytes % 11.4 % (1.7-12.7); Neutrophils # 7.4 10*3/uL (1.4-7.4); Neutrophils % 69.5 % (38.7-73.9); Platelet Count 284 T/CUMM (130-400); Red Blood Count 3.01 MC/CUMM (3.8-5.5); White Blood Count 10.7 T/CUMM (4-12)
--- NOTE | 2016-11-23 06:13 | Cardiothoracic Progress Note ---
Cardiothoracic Subjective Interval history: Patient had a fairly comfortable night. Vital signs have been stable and is breathing comfortably. He still having episodes of what appears to be atrial flutter with a rate between 140 and 160. He presently is in normal sinus rhythm. I will defer to Dr. dewey as to whether or not to increase his amiodarone dosage or add a beta-adriane or digoxin. Overall his progress is slow. Exam (Progress Note) - Constitutional Vitals: Period Temp Pulse Resp BP Sys/Lr Pulse Ox Last 24 Hr 97.1 F-99.1 F 95-105 16-18 93-117/52-65 97-100 Result/EKG - Labs CBC & BMP: 11/23/16 05:47 11/22/16 04:08 Labs: Laboratory Results - last 24 hr 11/22/16 11/22/16 11/23/16 12:07 18:09 05:47 WBC 10.7 RBC 3.01 L Hgb 9.6 L Hct 27.4 L MCV 91.0 MCH 32 MCHC 35.0 RDW 13.0 Plt Count 284 MPV 10.2 Neut % (Auto) 69.5 Lymph % (Auto) 13.7 L [place] % (Auto) 11.4 Eos % (Auto) 3.7 Baso % (Auto) 0.1 Neut # (Auto) 7.4 Lymph # (Auto) 1.5 [place] # (Auto) 1.2 H Eos # (Auto) 0.4 Baso # (Auto) 0.0 Immature Gran % 1.6 Nucleated RBC % 0.0 Immature Gran # 0.17 Nucleated RBCs # 0.00 Immature Plt Fraction 0.0 POC Glucose 147 H 163 H Quality Measures - VTE Contraindication to Pharmacological VTE Prophylaxis: High Risk of Bleeding Specialty Discharge - Follow Up or Referrals
[2016-11-23 06:33] LABS: Calcium 7.6 MG/DL (8.5-10.1); Magnesium 2.1 MG/DL (1.8-2.4); Osmolality,Calculated 276.8 MOS/KG (273-304); Potassium 3.7 MMOL/L (3.5-5.1)
[2016-11-23] MEDS ORDERED: DEXTROSE 50% 25 GM/50 ML SYRINGE IV PRN (08:30)
--- NOTE | 2016-11-23 08:45 | Cardiology Progress Note ---
Cardiology - PN: Subj Interval history: Cardiology note 86-year-old man status post two-vessel CABG November 12 with LANG graft to LAD and vein graft to right coronary normal preop EF Postop atrial flutter converted with IV amiodarone. Recent rhythm strip showed that the patient is flip-flopping between sinus and atrial flutter Appetite remains fair at best Patient is very slow to move. Blood pressure 118/74. Regular rhythm no murmur Decreased breath sounds bilaterally Incision looks good Impression Status post two-vessel CABG November 12, 2016 LANG graft to LAD and vein graft to right coronary Postop atrial fib/flutter. Patient is flip-flopping back and forth. Hypertension Hyperlipidemia Status post TIA November 16, 2016 SUMMER suspected Carotid duplex hemodynamically insignificant disease Plan Increase amiodarone 200 mg 3 times daily Spirometry Encourage nutrition Swing bed next week Exam (Progress Note) - Constitutional Vitals: Period Temp Pulse Resp BP Sys/Lr Pulse Ox Last 24 Hr 97.1 F-99.1 F 95-103 16-20 93-110/52-68 96-100 Result/EKG - Labs CBC & BMP: 11/23/16 05:47 11/23/16 05:47 Labs: Laboratory Results - last 24 hr 11/22/16 11/22/16 11/23/16 12:07 18:09 05:47 WBC 10.7 RBC 3.01 L Hgb 9.6 L Hct 27.4 L MCV 91.0 MCH 32 MCHC 35.0 RDW 13.0 Plt Count 284 MPV 10.2 Neut % (Auto) 69.5 Lymph % (Auto) 13.7 L [place] % (Auto) 11.4 Eos % (Auto) 3.7 Baso % (Auto) 0.1 Neut # (Auto) 7.4 Lymph # (Auto) 1.5 [place] # (Auto) 1.2 H Eos # (Auto) 0.4 Baso # (Auto) 0.0 Immature Gran % 1.6 Nucleated RBC % 0.0 Immature Gran # 0.17 Nucleated RBCs # 0.00 Immature Plt Fraction 0.0 Sodium Potassium Chloride Carbon Dioxide Anion Gap BUN Creatinine GFR Calculation BUN/Creatinine Ratio Glucose POC Glucose 147 H 163 H Calculated Osmolality Calcium Magnesium 11/23/16 05:47 WBC RBC Hgb Hct MCV MCH MCHC RDW Plt Count MPV Neut % (Auto) Lymph % (Auto) [place] % (Auto) Eos % (Auto) Baso % (Auto) Neut # (Auto) Lymph # (Auto) [place] # (Auto) Eos # (Auto) Baso # (Auto) Immature Gran % Nucleated RBC % Immature Gran # Nucleated RBCs # Immature Plt Fraction Sodium 137 Potassium 3.7 Chloride 101 Carbon Dioxide 32 Anion Gap 7.7 BUN 23 H Creatinine 0.90 GFR Calculation 94 BUN/Creatinine Ratio 25.00 H Glucose 97 POC Glucose Calculated Osmolality 276.8 Calcium 7.6 L Magnesium 2.1 Quality Measures - VTE Contraindication to Pharmacological VTE Prophylaxis: High Risk of Bleeding Specialty Discharge - Follow Up or Referrals
[2016-11-23] MEDS: FUROSEMIDE 40 MG/4 ML VIAL IV SCH (08:51)
[2016-11-23] MEDS: MULTIVITAMIN (CENTRUM) TABLET PO SCH (08:52)
[2016-11-23] MEDS: FERROUS SULFATE 325 MG TABLET PO SCH (08:52)
[2016-11-23] MEDS: CLOPIDOGREL 75 MG TABLET PO SCH (08:52)
[2016-11-23] MEDS: ATORVASTATIN 20 MG TABLET PO SCH (08:52)
[2016-11-23] MEDS: ASCORBIC ACID 500 MG TABLET PO SCH ×2 (08:52→21:13)
[2016-11-23] MEDS: ASPIRIN EC 81 MG TABLET PO SCH (08:52)
[2016-11-23] MEDS: PANTOPRAZOLE 40 MG TABLET PO SCH (08:52)
[2016-11-23] MEDS: GABAPENTIN 300 MG CAPSULE PO SCH ×3 (08:53→21:13)
[2016-11-23] MEDS: DOCUSATE SODIUM 100 MG CAPSULE PO SCH (08:53)
[2016-11-23] MEDS: amLODIPine 5 MG TABLET PO SCH (08:53)
[2016-11-23] MEDS: CHLORHEXIDINE 0.12% ORAL RINSE 60 ML BOTTLE SWISH/SPIT SCH ×2 (08:53→21:16)
[2016-11-23] MEDS ORDERED: METOPROLOL TARTRATE 5 MG/5 ML VIAL IV ONE (18:11)
[2016-11-23] MEDS: AMIODARONE 200 MG TABLET PO SCH (18:18)
[2016-11-23] MEDS: AMITRIPTYLINE 50 MG TABLET PO SCH (21:13)
[2016-11-23] MEDS: LOSARTAN 50 MG TABLET PO SCH (21:13)
[2016-11-24] MEDS: AMIODARONE 200 MG TABLET PO SCH ×4 (00:19→21:28)
--- NOTE | 2016-11-24 03:07 | Cardiology Progress Note ---
Cardiology - PN: Subj Interval history: Cardiology note 86-year-old man status post two-vessel CABG November 12 with LANG graft to LAD and vein graft to right coronary with normal preop EF. Postop atrial flutter converted with IV amiodarone. Recent telemetry strips show patient is flip-flopping between sinus and atrial flutter. Appetite fair. Patient needs to be encouraged to ambulate more. Blood pressure 110/70 O2 sat 96% on 4 L cannula Regular rhythm no murmur Decreased breath sounds with rhonchi in the right base Incision looks good Abdomen nontender Impression Status post two-vessel CABG November 12, 2016 with LANG graft to LAD and vein graft to right coronary Postop atrial fib/flutter. Patient has been flip-flopping back and forth. Hypertension Hyperlipidemia Status post TIA November 16, 2016 SUMMER suspected Carotid duplex hemodynamically insignificant disease Plan Spirometry Encourage nutrition Amiodarone 200 mg 3 times daily with meals Swing bed next week Exam (Progress Note) - Constitutional Vitals: Period Temp Pulse Resp BP Sys/Lr Pulse Ox Last 24 Hr 97.8 F-99.3 F 93-99 16-20 96-119/56-68 96-100 Result/EKG - Labs CBC & BMP: 11/23/16 05:47 11/23/16 05:47 Labs: Laboratory Results - last 24 hr 11/23/16 11/23/16 11/23/16 05:47 05:47 11:12 WBC 10.7 RBC 3.01 L Hgb 9.6 L Hct 27.4 L MCV 91.0 MCH 32 MCHC 35.0 RDW 13.0 Plt Count 284 MPV 10.2 Neut % (Auto) 69.5 Lymph % (Auto) 13.7 L [place] % (Auto) 11.4 Eos % (Auto) 3.7 Baso % (Auto) 0.1 Neut # (Auto) 7.4 Lymph # (Auto) 1.5 [place] # (Auto) 1.2 H Eos # (Auto) 0.4 Baso # (Auto) 0.0 Immature Gran % 1.6 Nucleated RBC % 0.0 Immature Gran # 0.17 Nucleated RBCs # 0.00 Immature Plt Fraction 0.0 Sodium 137 Potassium 3.7 Chloride 101 Carbon Dioxide 32 Anion Gap 7.7 BUN 23 H Creatinine 0.90 GFR Calculation 94 BUN/Creatinine Ratio 25.00 H Glucose 97 POC Glucose 152 H Calculated Osmolality 276.8 Calcium 7.6 L Magnesium 2.1 11/23/16 11/24/16 18:09 00:18 WBC RBC Hgb Hct MCV MCH MCHC RDW Plt Count MPV Neut % (Auto) Lymph % (Auto) [place] % (Auto) Eos % (Auto) Baso % (Auto) Neut # (Auto) Lymph # (Auto) [place] # (Auto) Eos # (Auto) Baso # (Auto) Immature Gran % Nucleated RBC % Immature Gran # Nucleated RBCs # Immature Plt Fraction Sodium Potassium Chloride Carbon Dioxide Anion Gap BUN Creatinine GFR Calculation BUN/Creatinine Ratio Glucose POC Glucose 153 H 122 H Calculated Osmolality Calcium Magnesium Quality Measures - VTE Contraindication to Pharmacological VTE Prophylaxis: High Risk of Bleeding Specialty Discharge - Follow Up or Referrals
[2016-11-24 06:08] LABS: Basophils % 0.2 % (0.0-0.8); Eosinophils # 0.4 10*3/uL (0.0-0.87); Eosinophils % 3.9 % (0.00-10.9); Hematocrit 27.4 VOL% (42.0-52.0); Hemoglobin 9.5 GM/DL (14.0-18.0); Immature Granulocytes % 1.2 %; Immature Granulocytes Absolute 0.11 #; Lymphocytes # 1.7 10*3/uL (1.4-4.0); Lymphocytes % 17.7 % (21.2-54.2); Mean Corpuscular HGB Conc 34.7 GM/DL (32-36); Mean Corpuscular Hemoglobin 32 PG (27-34); Mean Platelet Volume 10.7 FL (9.6-12.0); Monocytes # 1.2 10*3/uL (0.11-0.8); Monocytes % 12.2 % (1.7-12.7); Neutrophils # 6.2 10*3/uL (1.4-7.4); Neutrophils % 64.8 % (38.7-73.9); Platelet Count 274 T/CUMM (130-400); Red Blood Count 3.01 MC/CUMM (3.8-5.5); Red Cell Distribution Width 12.9 % (9.3-17.3); White Blood Count 9.5 T/CUMM (4-12)
[2016-11-24 06:39] LABS: Magnesium 2.1 MG/DL (1.8-2.4); Osmolality,Calculated 274.8 MOS/KG (273-304); Potassium 3.7 MMOL/L (3.5-5.1)
--- NOTE | 2016-11-24 08:44 | Cardiothoracic Progress Note ---
Cardiothoracic Subjective Interval history: Patient looks and feels better. He is getting stronger and was able to walk to the bathroom with minimal assistance yesterday and to take a shower. His vital signs have been stable and his rhythm has been normal sinus rhythm since yesterday. Overall his progress is satisfactory and we are looking for a swing bed transfer on Saturday. Exam (Progress Note) - Constitutional Vitals: Period Temp Pulse Resp BP Sys/Lr Pulse Ox Last 24 Hr 97.8 F-99.3 F 93-131 16-20 94-119/56-64 92-100 Result/EKG - Labs CBC & BMP: 11/24/16 06:01 11/24/16 05:50 Labs: Laboratory Results - last 24 hr 11/23/16 11/23/16 11/24/16 11:12 18:09 00:18 WBC RBC Hgb Hct MCV MCH MCHC RDW Plt Count MPV Neut % (Auto) Lymph % (Auto) [place] % (Auto) Eos % (Auto) Baso % (Auto) Neut # (Auto) Lymph # (Auto) [place] # (Auto) Eos # (Auto) Baso # (Auto) Immature Gran % Nucleated RBC % Immature Gran # Nucleated RBCs # Immature Plt Fraction Sodium Potassium Chloride Carbon Dioxide Anion Gap BUN Creatinine GFR Calculation BUN/Creatinine Ratio Glucose POC Glucose 152 H 153 H 122 H Calculated Osmolality Calcium Magnesium 11/24/16 11/24/16 11/24/16 05:42 05:50 06:01 WBC 9.5 RBC 3.01 L Hgb 9.5 L Hct 27.4 L MCV 91.0 MCH 32 MCHC 34.7 RDW 12.9 Plt Count 274 MPV 10.7 Neut % (Auto) 64.8 Lymph % (Auto) 17.7 L [place] % (Auto) 12.2 Eos % (Auto) 3.9 Baso % (Auto) 0.2 Neut # (Auto) 6.2 Lymph # (Auto) 1.7 [place] # (Auto) 1.2 H Eos # (Auto) 0.4 Baso # (Auto) 0.0 Immature Gran % 1.2 Nucleated RBC % 0.0 Immature Gran # 0.11 Nucleated RBCs # 0.00 Immature Plt Fraction 0.0 Sodium 137 Potassium 3.7 Chloride 101 Carbon Dioxide 30 Anion Gap 9.7 BUN 19 H Creatinine 0.90 GFR Calculation 94 BUN/Creatinine Ratio 21.00 H Glucose 103 POC Glucose 131 H Calculated Osmolality 274.8 Calcium 8.0 L Magnesium 2.1 11/24/16 07:04 WBC RBC Hgb Hct MCV MCH MCHC RDW Plt Count MPV Neut % (Auto) Lymph % (Auto) [place] % (Auto) Eos % (Auto) Baso % (Auto) Neut # (Auto) Lymph # (Auto) [place] # (Auto) Eos # (Auto) Baso # (Auto) Immature Gran % Nucleated RBC % Immature Gran # Nucleated RBCs # Immature Plt Fraction Sodium Potassium Chloride Carbon Dioxide Anion Gap BUN Creatinine GFR Calculation BUN/Creatinine Ratio Glucose POC Glucose 129 H Calculated Osmolality Calcium Magnesium Quality Measures - VTE Contraindication to Pharmacological VTE Prophylaxis: High Risk of Bleeding Specialty Discharge - Follow Up or Referrals
[2016-11-24] MEDS: ASPIRIN EC 81 MG TABLET PO SCH (09:04)
[2016-11-24] MEDS: ASCORBIC ACID 500 MG TABLET PO SCH ×2 (09:04→21:28)
[2016-11-24] MEDS: CLOPIDOGREL 75 MG TABLET PO SCH (09:04)
[2016-11-24] MEDS: ATORVASTATIN 20 MG TABLET PO SCH (09:04)
[2016-11-24] MEDS: FERROUS SULFATE 325 MG TABLET PO SCH (09:04)
[2016-11-24] MEDS: DOCUSATE SODIUM 100 MG CAPSULE PO SCH (09:04)
[2016-11-24] MEDS: MULTIVITAMIN (CENTRUM) TABLET PO SCH (09:04)
[2016-11-24] MEDS: amLODIPine 5 MG TABLET PO SCH (09:05)
[2016-11-24] MEDS: PANTOPRAZOLE 40 MG TABLET PO SCH (09:05)
[2016-11-24] MEDS: GABAPENTIN 300 MG CAPSULE PO SCH ×3 (09:05→21:28)
[2016-11-24] MEDS: FUROSEMIDE 40 MG/4 ML VIAL IV SCH (09:06)
[2016-11-24] MEDS: CHLORHEXIDINE 0.12% ORAL RINSE 60 ML BOTTLE SWISH/SPIT SCH ×2 (09:06→21:28)
[2016-11-24] MEDS: LOSARTAN 50 MG TABLET PO SCH (21:28)
[2016-11-24] MEDS: AMITRIPTYLINE 50 MG TABLET PO SCH (21:28)
[2016-11-25 04:46] LABS: Basophils % 0.1 % (0.0-0.8); Eosinophils # 0.3 10*3/uL (0.0-0.87); Eosinophils % 3.8 % (0.00-10.9); Hematocrit 26.4 VOL% (42.0-52.0); Hemoglobin 9.1 GM/DL (14.0-18.0); Immature Granulocytes Absolute 0.08 #; Lymphocytes # 1.6 10*3/uL (1.4-4.0); Lymphocytes % 18.8 % (21.2-54.2); Mean Corpuscular HGB Conc 34.5 GM/DL (32-36); Mean Corpuscular Hemoglobin 31 PG (27-34); Mean Corpuscular Volume 90.4 FL (87-102); Mean Platelet Volume 10.7 FL (9.6-12.0); Monocytes % 11.9 % (1.7-12.7); Neutrophils # 5.4 10*3/uL (1.4-7.4); Neutrophils % 64.4 % (38.7-73.9); Platelet Count 274 T/CUMM (130-400); Red Blood Count 2.92 MC/CUMM (3.8-5.5); Red Cell Distribution Width 12.7 % (9.3-17.3); White Blood Count 8.4 T/CUMM (4-12)
[2016-11-25 05:17] LABS: Calcium 7.9 MG/DL (8.5-10.1); Magnesium 1.9 MG/DL (1.8-2.4); Osmolality,Calculated 275.7 MOS/KG (273-304); Potassium 3.7 MMOL/L (3.5-5.1)
--- NOTE | 2016-11-25 08:13 | Cardiothoracic Progress Note ---
Cardiothoracic Subjective Interval history: Patient looks and feels some better. He is maintaining normal sinus rhythm. Vital signs have been stable and is breathing comfortably. We will gradually try to increase his activities as tolerated according to routine postoperative protocol. He may be ready for swing bed transfer tomorrow. Exam (Progress Note) - Constitutional Vitals: Period Temp Pulse Resp BP Sys/Lr Pulse Ox Last 24 Hr 97.6 F-98.4 F 92-102 16-20 107-118/59-64 94-99 Result/EKG - Labs CBC & BMP: 11/25/16 04:00 11/25/16 04:00 Labs: Laboratory Results - last 24 hr 11/24/16 11/24/16 11/25/16 11:20 18:50 00:00 WBC RBC Hgb Hct MCV MCH MCHC RDW Plt Count MPV Neut % (Auto) Lymph % (Auto) [place] % (Auto) Eos % (Auto) Baso % (Auto) Neut # (Auto) Lymph # (Auto) [place] # (Auto) Eos # (Auto) Baso # (Auto) Immature Gran % Nucleated RBC % Immature Gran # Nucleated RBCs # Immature Plt Fraction Sodium Potassium Chloride Carbon Dioxide Anion Gap BUN Creatinine GFR Calculation BUN/Creatinine Ratio Glucose POC Glucose 144 H 156 H 133 H Calculated Osmolality Calcium Magnesium 11/25/16 11/25/16 11/25/16 04:00 04:00 05:41 WBC 8.4 RBC 2.92 L Hgb 9.1 L Hct 26.4 L MCV 90.4 MCH 31 MCHC 34.5 RDW 12.7 Plt Count 274 MPV 10.7 Neut % (Auto) 64.4 Lymph % (Auto) 18.8 L [place] % (Auto) 11.9 Eos % (Auto) 3.8 Baso % (Auto) 0.1 Neut # (Auto) 5.4 Lymph # (Auto) 1.6 [place] # (Auto) 1.0 H Eos # (Auto) 0.3 Baso # (Auto) 0.0 Immature Gran % 1.0 Nucleated RBC % 0.0 Immature Gran # 0.08 Nucleated RBCs # 0.00 Immature Plt Fraction 0.0 Sodium 138 Potassium 3.7 Chloride 101 Carbon Dioxide 31 Anion Gap 9.7 BUN 15 Creatinine 0.80 GFR Calculation 98 BUN/Creatinine Ratio 18.00 Glucose 101 POC Glucose 129 H Calculated Osmolality 275.7 Calcium 7.9 L Magnesium 1.9 Quality Measures - VTE Contraindication to Pharmacological VTE Prophylaxis: High Risk of Bleeding Specialty Discharge - Follow Up or Referrals
--- NOTE | 2016-11-25 08:46 | Cardiology Progress Note ---
Cardiology - PN: Subj Interval history: Cardiology note 86-year-old man status post two-vessel CABG November 12 with LANG graft to LAD and vein graft to right coronary with normal preop EF Postop atrial flutter converted with IV amiodarone Telemetry shows steady sinus rhythm More awake and alert Appetite fair Blood pressure 116/74 O2 sat 95% Regular rhythm no murmur Incision looks good Decreased breath sounds but fairly clear Abdomen benign Vein graft harvest site looks good Lab data White count 8.4 hemoglobin 9.1 hematocrit 26.4 Sodium 138 potassium 3.7 chloride 101 CO2 31 BUN 15 creatinine 0.80 Glucose 101 magnesium 1.7 Impression Status post two-vessel CABG November 12, 2016 with LANG graft to LAD and vein graft to right coronary Postop atrial fib/flutter. Has been in steady sinus for the past 48 hours Hypertension Hyperlipidemia Status post TIA November 16, 2016 SUMMER suspected Carotid duplex hemodynamically insignificant disease Plan Amiodarone 200 mg 3 times daily with meals. We will decrease to 200 mg twice daily when he goes to swing bed. Encourage nutrition Spirometry Swing bed soon Exam (Progress Note) - Constitutional Vitals: Period Temp Pulse Resp BP Sys/Lr Pulse Ox Last 24 Hr 97.6 F-98.4 F 92-102 16-20 107-118/59-64 94-99 Result/EKG - Labs CBC & BMP: 11/25/16 04:00 11/25/16 04:00 Labs: Laboratory Results - last 24 hr 11/24/16 11/24/16 11/25/16 11:20 18:50 00:00 WBC RBC Hgb Hct MCV MCH MCHC RDW Plt Count MPV Neut % (Auto) Lymph % (Auto) [place] % (Auto) Eos % (Auto) Baso % (Auto) Neut # (Auto) Lymph # (Auto) [place] # (Auto) Eos # (Auto) Baso # (Auto) Immature Gran % Nucleated RBC % Immature Gran # Nucleated RBCs # Immature Plt Fraction Sodium Potassium Chloride Carbon Dioxide Anion Gap BUN Creatinine GFR Calculation BUN/Creatinine Ratio Glucose POC Glucose 144 H 156 H 133 H Calculated Osmolality Calcium Magnesium 11/25/16 11/25/16 11/25/16 04:00 04:00 05:41 WBC 8.4 RBC 2.92 L Hgb 9.1 L Hct 26.4 L MCV 90.4 MCH 31 MCHC 34.5 RDW 12.7 Plt Count 274 MPV 10.7 Neut % (Auto) 64.4 Lymph % (Auto) 18.8 L [place] % (Auto) 11.9 Eos % (Auto) 3.8 Baso % (Auto) 0.1 Neut # (Auto) 5.4 Lymph # (Auto) 1.6 [place] # (Auto) 1.0 H Eos # (Auto) 0.3 Baso # (Auto) 0.0 Immature Gran % 1.0 Nucleated RBC % 0.0 Immature Gran # 0.08 Nucleated RBCs # 0.00 Immature Plt Fraction 0.0 Sodium 138 Potassium 3.7 Chloride 101 Carbon Dioxide 31 Anion Gap 9.7 BUN 15 Creatinine 0.80 GFR Calculation 98 BUN/Creatinine Ratio 18.00 Glucose 101 POC Glucose 129 H Calculated Osmolality 275.7 Calcium 7.9 L Magnesium 1.9 Quality Measures - VTE Contraindication to Pharmacological VTE Prophylaxis: High Risk of Bleeding Specialty Discharge - Follow Up or Referrals
[2016-11-25] MEDS: CLOPIDOGREL 75 MG TABLET PO SCH (08:55)
[2016-11-25] MEDS: DOCUSATE SODIUM 100 MG CAPSULE PO SCH (08:55)
[2016-11-25] MEDS: AMIODARONE 200 MG TABLET PO SCH ×3 (08:55→21:14)
[2016-11-25] MEDS: ASCORBIC ACID 500 MG TABLET PO SCH ×2 (08:55→21:14)
[2016-11-25] MEDS: FUROSEMIDE 40 MG/4 ML VIAL IV SCH (08:55)
[2016-11-25] MEDS: FERROUS SULFATE 325 MG TABLET PO SCH (08:56)
[2016-11-25] MEDS: ATORVASTATIN 20 MG TABLET PO SCH (08:56)
[2016-11-25] MEDS: ASPIRIN EC 81 MG TABLET PO SCH (08:56)
[2016-11-25] MEDS: CHLORHEXIDINE 0.12% ORAL RINSE 60 ML BOTTLE SWISH/SPIT SCH ×2 (08:56→21:16)
[2016-11-25] MEDS: PANTOPRAZOLE 40 MG TABLET PO SCH (08:56)
[2016-11-25] MEDS: amLODIPine 5 MG TABLET PO SCH (08:56)
[2016-11-25] MEDS: MULTIVITAMIN (CENTRUM) TABLET PO SCH (08:56)
[2016-11-25] MEDS: GABAPENTIN 300 MG CAPSULE PO SCH ×3 (08:56→21:14)
[2016-11-25] MEDS: CLINDAMYCIN 150 MG CAPSULE PO SCH ×2 (12:07→17:04)
[2016-11-25] MEDS: AMITRIPTYLINE 50 MG TABLET PO SCH (21:14)
[2016-11-25] MEDS: LOSARTAN 50 MG TABLET PO SCH (21:14)
[2016-11-26] MEDS: CLINDAMYCIN 150 MG CAPSULE PO SCH ×3 (00:11→12:05)
[2016-11-26 05:14] LABS: Basophils % 0.2 % (0.0-0.8); Eosinophils # 0.4 10*3/uL (0.0-0.87); Eosinophils % 4.3 % (0.00-10.9); Hematocrit 26.8 VOL% (42.0-52.0); Hemoglobin 9.1 GM/DL (14.0-18.0); Immature Granulocytes % 0.9 %; Immature Granulocytes Absolute 0.08 #; Lymphocytes # 1.4 10*3/uL (1.4-4.0); Mean Corpuscular Hemoglobin 31 PG (27-34); Mean Corpuscular Volume 91.5 FL (87-102); Monocytes % 11.8 % (1.7-12.7); Neutrophils # 5.9 10*3/uL (1.4-7.4); Neutrophils % 66.8 % (38.7-73.9); Platelet Count 290 T/CUMM (130-400); Red Blood Count 2.93 MC/CUMM (3.8-5.5); White Blood Count 8.8 T/CUMM (4-12)
[2016-11-26 05:50] LABS: Magnesium 1.9 MG/DL (1.8-2.4); Osmolality,Calculated 273.8 MOS/KG (273-304); Potassium 3.9 MMOL/L (3.5-5.1)
[2016-11-26] MEDS: ASCORBIC ACID 500 MG TABLET PO SCH (08:39)
[2016-11-26] MEDS: ATORVASTATIN 20 MG TABLET PO SCH (08:39)
[2016-11-26] MEDS: ASPIRIN EC 81 MG TABLET PO SCH (08:39)
[2016-11-26] MEDS: CLOPIDOGREL 75 MG TABLET PO SCH (08:39)
[2016-11-26] MEDS: MULTIVITAMIN (CENTRUM) TABLET PO SCH (08:39)
[2016-11-26] MEDS: FERROUS SULFATE 325 MG TABLET PO SCH (08:39)
[2016-11-26] MEDS: DOCUSATE SODIUM 100 MG CAPSULE PO SCH (08:40)
[2016-11-26] MEDS: GABAPENTIN 300 MG CAPSULE PO SCH (08:40)
[2016-11-26] MEDS: PANTOPRAZOLE 40 MG TABLET PO SCH (08:40)
[2016-11-26] MEDS: FUROSEMIDE 40 MG/4 ML VIAL IV SCH (08:40)
[2016-11-26] MEDS: amLODIPine 5 MG TABLET PO SCH (08:40)
[2016-11-26] MEDS: AMIODARONE 200 MG TABLET PO SCH (08:43)
[2016-11-26] MEDS: CHLORHEXIDINE 0.12% ORAL RINSE 60 ML BOTTLE SWISH/SPIT SCH (08:43)
--- NOTE | 2016-11-26 09:10 | Discharge Summary ---
Hospital Course - Hospital Course Hospital Course: History of present illness: Patient is an 86-year-old man who was admitted to [facility] because of exertional chest pain. Patient underwent cardiac catheterization demonstrating critical coronary disease and he was advised to have bypass surgery. He is referred to this hospital for that purpose. Past medical history is significant in that he had a history of stroke about a year ago but has no residual from that episode. Otherwise he has been in relatively good health but has had episodes of tachycardia arrhythmias in the past. He is admitted for bypass surgery. Past medical history review of systems social history and family history are documented in his admission note. Hospital course: Patient was taken to surgery where two-vessel bypass grafting was performed with an internal mammary graft to the anterior descending coronary artery and a saphenous vein graft to the right coronary artery. Postoperative course was complicated by a transient ischemic attack on postoperative day 2 involving his left side but he recovered from this fairly rapidly. He did have periodic episodes of atrial fibrillation alternating with sinus rhythm. Because of this she was anticoagulated and he had no further neurological episodes. Partially because of his age his recovery was slow but by the time of transfer to [facility] he was walking with minimal assistance and breathing comfortably. He is to be seen in follow-up and 1 month and his discharge medications are listed below. Specialty Discharge - Follow Up or Referrals Follow up with: Kevin Christensen MD [Physician] - 1 Month Discharge Plan - Discharge Data Disposition: Swing Bed, [facility] Based, [facility] [place] Condition at Discharge: Stable Discharge Diet: advance to your usual diet Activity: resume usual activities as tolerated Hygiene: no restrictions Weight Bearing at Discharge: full weight bearing Driving: not until seen by doctor - Discharge Medications New Acetaminophen Tab [Tylenol Tab] 650 mg PO Q4H PRN tablet PRN Reason: Temperature greater than 100F Clopidogrel [Plavix] 75 mg PO DAILY tablet Zaleplon [Sonata] 5 mg PO BEDTIME PRN capsule PRN Reason: Sleep Amiodarone Tab [Cordarone Tab] 200 mg PO TID tablet Ascorbic Acid Tab [Vitamin C Tab] 1,000 mg PO BID tablet Clindamycin Cap [Cleocin Cap] 150 mg PO Q6HR capsule Docusate Sodium Cap [Colace Cap] 100 mg PO DAILY capsule Ferrous Sulfate Tab [Feosol Original Tab] 325 mg PO DAILY tablet Magnesium Hydroxide Susp [Milk of Magnesia] 30 ml PO Q6H PRN PRN Reason: Constipation Pantoprazole Tab [Protonix Tab] 40 mg PO DAILY tablet Continue Aspirin [Ecotrin] 81 mg PO DAILY Gabapentin 300 mg PO TID Atorvastatin [Lipitor] 20 mg PO DAILY traZODone [Desyrel] 100 mg PO DAILY Pantoprazole Tab [Protonix Tab] 1 tablet PO DAILY amLODIPine [Norvasc] 5 mg PO DAILY Losartan [Cozaar] 100 mg PO BEDTIME Acetaminophen Tab [Tylenol Tab] 2 tablet PO Q4-6H PRN PRN Reason: Pain Multivitamin [Multivitamins] 1 tablespoon PO DAILY Discontinued Metoprolol Tartrate 25 mg PO BID Hydrocodone/Acetaminophen [Hydrocodon-Acetaminoph 7.5-325] 1 tablet PO Q6HR PRN PRN Reason: Pain - Follow Up or Referral - Forms/Instructions Instructions: Coronary Artery Bypass Graft (DC), Heart Healthy Diet (GEN), Sternal Precautions (GEN) Exam - Constitutional Vitals: Period Temp Pulse Resp BP Sys/Lr Pulse Ox Last 24 Hr 97.6 F-98.7 F 90-100 16-18 102-127/56-64 90-94 Discharge Results Procedures and tests throughout hospitalization: Pending Orders 11/11/16 03:26 Fresh Frozen Plasma IN AM Red Blood Cells Leuko Red IN AM Single Donor Platelets IN AM Type and Screen Routine Labs on day of discharge: Labs from last 24 hours 11/26/16 11/26/16 11/26/16 Unknown 06:29 03:30 WBC 8.8 RBC 2.93 L Hgb 9.1 L Hct 26.8 L MCV 91.5 MCH 31 MCHC 34.0 RDW 13.0 Plt Count 290 MPV 11.0 Neut % (Auto) 66.8 Lymph % (Auto) 16.0 L Crosby % (Auto) 11.8 Eos % (Auto) 4.3 Baso % (Auto) 0.2 Neut # (Auto) 5.9 Lymph # (Auto) 1.4 Crosby # (Auto) 1.0 H Eos # (Auto) 0.4 Baso # (Auto) 0.0 Immature Gran % 0.9 Nucleated RBC % 0.0 Immature Gran # 0.08 Nucleated RBCs # 0.00 Immature Plt Fraction 0.0 Sodium 137 Potassium 3.9 Chloride 101 Carbon Dioxide 30 Anion Gap 9.9 BUN 15 Creatinine 0.80 GFR Calculation 98 BUN/Creatinine Ratio 18.00 Glucose 104 POC Glucose 115 H Calculated Osmolality 273.8 Calcium 8.0 L Magnesium 1.9 11/26/16 11/25/16 11/25/16 00:11 18:13 11:48 WBC RBC Hgb Hct MCV MCH MCHC RDW Plt Count MPV Neut % (Auto) Lymph % (Auto) Crosby % (Auto) Eos % (Auto) Baso % (Auto) Neut # (Auto) Lymph # (Auto) Crosby # (Auto) Eos # (Auto) Baso # (Auto) Immature Gran % Nucleated RBC % Immature Gran # Nucleated RBCs # Immature Plt Fraction Sodium Potassium Chloride Carbon Dioxide Anion Gap BUN Creatinine GFR Calculation BUN/Creatinine Ratio Glucose POC Glucose 130 H 172 H 142 H Calculated Osmolality Calcium Magnesium DS: Provider Date of admission: 11/09/16 12:55 Primary care physician: Dejan Shankar Attending physician on admission: Kevin Christensen MD Consults: 11/09/16 09:37 Consult to Dietitian [CONS] Routine Reason for Dietitian: Other Consult Comment: low salt, low cholesterol, diet 11/14/16 07:20 Consult to Cardiac Rehabilitation [CONS] Routine Reason for Cardiac Rehabilitation: Other Consult Comment: Post CABG/heart surgery Consult to [facility], Educator [CONS] Routine Reason for [facility]: Diabetes Education Initial Insulin Education Consult Comment: insulin education Consult to Dietitian [CONS] Routine Reason for Dietitian: Dietary Consult Consult Comment: Cardiac, low salt, low cholesterol diet Consult to Physical Therapy [CONS] Routine Reason for Physical Therapy: Other Consult Comment: CV Rehab 11/19/16 13:06 Consult to Physician [CONS] Routine Comment: Consulting Provider: Consult to Specialist Group: Cardiology When should Consulting Provider be notified: Now Person Notified: tierney Date Notified: 11/19/16 Time Notified: 13:08 Discharging clinician: Kevin Christensen MD Expected date of discharge: 11/26/16
[2016-11-26 12:42] VITALS: BP 127/61
== END 2016-11-26 13:56 | disposition swing bed (61) | DRG 236 ==
LOC: N.TELES 12:55 → N.CVR 11-12 11:07 → N.ICU 11-13 12:00 → N.TELES 11-14 11:55 → N.ICU 11-16 03:48 → N.TELES 11-18 10:00